=== PATIENT | male | born 1955 | race Caucasian/White ===

== ENCOUNTER 2024-12-28 13:13 | Inpatient (IN) | payer MEDICARE, SELFPAY ==
[2024-12-28] VITALS (7 sets, daily range): BP systolic 94–139; BP diastolic 71–89; PULSE 79–124; RESP 17–99; TEMP 36–37.2; O2SAT 96–100; BMI 21.1; BMI 21.2
--- NOTE | 2024-12-28 13:36 | XR_ITS ---
Examination: Abdomen sonogram, Limited Date and time of exam: December 28, 2024 1452 hours INDICATIONS: Epigastric pain beginning 3 weeks ago Technique: Real-time whatley scale transabdominal sonographic images of the upper abdomen obtained. Findings: Multiple gallstones Gallbladder wall 0.3 cm no edema Common bile duct 0.3 cm Pancreatic head 2.2 cm Liver 13.6 cm lobular contour no focal liver lesions Normal hepatopedal portal venous oh Patent IVC IMPRESSION: Cholelithiasis, negative for cholecystitis Cirrhosis versus primary hepatocellular disease no liver lesions
--- NOTE | 2024-12-28 13:36 | EKG_ITS ---
[facility] Test Date: 2024-12-28 Pat Name: VICK DUARTE Department: Room: - Gender: Male Shed Boss: : 1955 Requested By: Mayra Singh Order Number: [id number] Reading MD: Mayra Singh Measurements Intervals [place] Rate: 116 P: 63 PA: 140 QRS: 77 QRSD: 87 T: 4 QT: 301 QTc: 419 Interpretive Statements SINUS TACHYCARDIA MODERATE T-WAVE ABNORMALITY, CONSIDER INFERIOR ISCHEMIA [-0.1+ mV T WAVE IN II/aVF] Compared to ECG 08/15/2024 13:13:32 T-wave abnormality now present Possible ischemia now present Sinus rhythm no longer present /store/S0/[id number]/ecg/[id number].pdf
--- NOTE | 2024-12-28 13:36 | XR_ITS ---
Examination: CT abdomen with intravenous contrast CT pelvis with intravenous contrast 2-D coronal reconstructions 2-D sagittal reconstructions Date and time of exam:December 28, 2024 1820 hours INDICATIONS: Abdominal pain beginning 3 weeks ago COMPARISON: 08/18/2023. CTDI: vol (mGy) 11.5 DLP: (mGycm) 436 Technique: Multiple axial sections of the abdomen and pelvis have been obtained. 64 slice high-resolution scanner used. 3 mm axial sections have been obtained, post intravenous injection 60 cc [id number] 2-D sagittal, coronal reconstructions obtained. Low dose protocols were performed. One or more of the following dose reduction techniques were used; automated exposure control, adjustment of the mA and/or KV according to patient size, use of iterative reconstruction technique. Findings: Liver is irregular in contour 12 mm anterior right lobe liver lesion axial image 73 Gallstones Splenomegaly AP dimension 13 cm Suspicious for edema at the head of the pancreas axial image 79 Common bile duct wall is thickened, coronal image 62 no definite common bile duct stones Calcifications are present in the pancreatic head Fluid distended small bowel loops Perinephric stranding Heavy abdominal aortic calcification Wall thickening involving mid and lower small bowel loops No pericecal inflammatory change Colonic diverticulosis, no diverticulitis Wall thickening involving the colon Transverse prostate dimension 4.7 cm Urinary bladder wall thickening up to 13 mm Advanced disc narrowing L3-L4 IMPRESSION: Cirrhosis Suspicious for a 12 mm right lobe liver lesion, recommend MRI abdomen follow-up pre and post intravenous contrast of the abdomen and liver Cholelithiasis Suspicious for pancreatitis, wall thickening of the common bile duct suspicious for cholangitis, recommend MRCP follow-up Hepatic arthropathy, hepatic and neuropathy Marked thickening of the urinary bladder wall, differential would include cystitis, early bladder carcinoma
--- NOTE | 2024-12-28 13:38 | EDNOTE_ITS ---
ED Abdominal Pain RME/HPI General Chief Complaint: Abdominal Pain Stated complaint: UPPER ABD PAIN, 10LB WEIGHT LOSS IN 3WKS Time seen by provider: 12/28/24 13:18 Arrival date/time: 12/28/24 13:13 RME / HPI RME / HPI narrative: 69-year-old male patient with significant history of gallstones in the past, hypertension, came in for evaluation regarding abdominal pain. Has been having abdominal pain for the last 3 weeks, described as dull ache, all day, severity moderate. Associated with nausea. Getting worse for the last few days. Patient also complained of poor appetite and weight loss about 10 pounds in the last 3 weeks. Denies any vomiting denies any blood in the stool denies any other complaints no medications taken prior to arrival. Patient stopped drinking alcohol more than a month ago. Related Data Home Medications ?Medication ?Instructions ?Recorded ?Confirmed albuterol sulfate 90 mcg/actuation 2 puff inhalation Q 4H PRN sob 07/13/22 08/26/23 aerosol inhaler clopidogrel 75 mg tablet 75 mg PO QDAY 07/13/2208/26 simvastatin 20 mg tablet 20 mg PO QDAY 07/13/2208/26 metoprolol succinate 25 mg 25 mg PO BID 08/26/2308/26 tablet,extended release 24 hr Previous Rx's ?Medication ?Instructions ?Recorded lisinopril 5 mg tablet 5 mg PO QDAY 30 days #30 tab s 03/02/23 hydrocodone 5 mg-acetaminophen 325 1 tab PO Q8H PRN pa in #10 tabs 08/30/23 mg tablet Allergies Allergy/AdvReac Type Severity Reaction Status Date / Time No Known Allergies Allergy Verified 12/28/24 13:14 Review of Systems Review of Systems Narrative Review of Systems: Review of system reviewed and within normal limits except mentioned in HPI ED Exam Narrative Physical exam: VITAL SIGNS: Reviewed. GENERAL APPEARANCE: Alert and interactive, follows commands, no acute distress, HEAD AND FACE: Non-traumatic. ENT: PERRL, pink conjunctivitis, eyelid no trauma, Mucous membrane moist. NECK: Supple, nontender, no nuchal rigidity. CHEST: No tenderness, no crepitus, no paradoxical movement, no retractions. LUNGS: Clear, well ventilated, symmetric, no rales, no wheezing, no ronchi, no stridor, good breath sounds bilaterally. HEART: Regular rate, regular rhythm, no murmur, no gallops. ABDOMEN: Soft, positive bowel sounds, nondistended, no guarding, diffuse tenderness, no rebound, no masses, RECTAL: Deferred. GENITAL: Deferred. NEUROLOGICAL: Gross motor function intact sensory function intact, Appropriate for age. MUSCULOSKELETAL: low back nontender, full range of motion. EXTREMITIES: Nontender, full range of motion. SKIN: Color pink, dry, no rash, no lacerations, no abrasions, no contusions. LYMPHATICS: Deferred. Course Quality Measures none Orders Category Date Time Status COVID-19 Screening Questionnaire NOW Care 12/28/24 20:[address] Screening NOW Care 12/28/24 13:37 Active Decision to Admit X1 Care 12/28/24 20:07 Active EKG (ED ONLY) *Do not use* NOW Care 12/28/24 13:[address] abdomen pelvis w con Stat Exams 12/28/24 13:36 Completed EKG (ED Only) Stat Exams 12/28/24 13:36 Draft US gall bladder Stat Exams 12/28/24 13:36 Completed Blood Culture (Lab) Stat Lab 12/28/24 19:33 Received CBC Stat Lab 12/28/24 14:04 Completed Comprehensive Metabolic Panel Stat Lab 12/28/24 14:04 Completed Lipase Stat Lab 12/28/24 14:04 Completed Lipid Panel Stat Lab 12/28/24 14:04 Completed Partial Thromboplastin Time Stat Lab 12/28/24 14:04 Completed Prothrombin Time with INR Stat Lab 12/28/24 14:04 Completed UA, C/S IF [Urinalysis, C/S if Indicated] Stat Lab 12/28/24 14:10 Completed Morphine Inj Med 12/28/24 13:39 Discontinued 4 mg IVP X1 ONE Ondansetron Inj [Zofran Inj] Med 12/28/24 13:36 Discontinued 4 mg IV X1 ONE Piper/Tazo 3.375 gm [Zosyn] Med 12/28/24 19:12 Discontinued 3.375 gm in 50 ml IV X1 Sodium Chloride 0.9% 1000 ml [Ns] 1,000 ml Med 12/28/24 13:37 Discontinued IV 999 mls/hr Vital Signs Vital signs: Vital Signs Temperature 98.9 F 01/30/25 13:25 Pulse Rate 124 H 12/28/24 13:25 Respiratory Rate 18 12/28/24 13:25 Blood Pressure 121/82 12/28/24 13:25 Pulse Oximetry (%) 99 12/28/24 13:25 Oxygen Delivery Method Room Air 12/28/24 13:25 Abdominal Pain [facility] Narrative [facility] Narrative:: 69-year-old male patient with significant history of gallstones in the past, hypertension, came in for evaluation regarding abdominal pain. Has been having abdominal pain for the last 3 weeks, described as dull ache, all day, severity moderate. Associated with nausea. Getting worse for the last few days. Patien t also complained of poor appetite and weight loss about 10 pounds in the last 3 weeks. Denies any vomiting denies any blood in the stool denies any other complaints no medications taken prior to arrival. Patient stopped drinking alcohol more than a month ago. Laboratory Is significant for a leukocytosis of 13.2 CMP LFTs are normal total bili is normal blood glucose was 288, lipase was noted to be 329. Urinalysis no UTI. Ultrasound of the gallbladder showed Cholelithiasis, negative for cholecystitis Cirrhosis versus primary hepatocellular disease no liver lesions CT scan of the abdomen pelvis showed Cirrhosis Suspicious for a 12 mm right lobe liver lesion, recommend MRI abdomen follow-up pre and post intravenous contrast of the abdomen and liver Cholelithiasis Suspicious for pancreatitis, wall thickening of the common bile duct suspicious for cholangitis, recommend MRCP follow-up Hepatic arthropathy, hepatic and neuropathy Marked thickening of the urinary bladder wall, differential would include cystitis, early bladder carcinoma Patient received IV fluids, IV Zosyn, and morphine and Zofran Case discussed with hospitalist, who admitted the patient, thank you very much Patient data External records reviewed:: None Clinical information provided by:: patient Social determinants that could affect healthcare access:: none Patient has the following chronic illnesses:: Liver cirrhosis, hypertension cholelithiasis How is presenting disease/condition affected by chronic disease/condition?: exacerbated by Evaluation data The following diagnostics were reviewed and interpreted by me:: lab results, radiology exam(s) and EKG tracing(s) Lab and/or radiology exams considered but not ordered:: None Interpretation Summary: EKG showed sinus tachycardia, ventricular rate of 116 bpm, no ST segment elevation depression. The rest of the labs and imaging see [facility] Medications / Prescriptions Medications or Prescriptions considered but not ordered:: None Medication administrations:: Medication Administration History Discontinued Medications Sodium Chloride (Ns) 1,000 mls @ 999 mls/hr IV .Q1H1M ONE Stop: 12/28/24 14:37 Last Infusion: 12/28/24 18:20 Dose: Infused Documented By: Admin: 12/28/24 17:19 Dose: 999 mls/hr Documented By: GEOVANNA Piperacillin/Tazobactam/Dextrose (Zosyn) 3.375 gm in 50 mls @ 100 mls/hr IV X1 ONE Stop: 12/28/24 19:41 Last Admin: 12/28/24 19:36 Dose: 100 mls/hr Documented By: KG Morphine Sulfate (Morphine Sulf Inj 10 Mg/Ml Vial) 4 mg IVP X1 ONE Stop: 12/28/24 13:40 Last Admin: 12/28/24 17:20 Dose: 4 mg Documented By: GEOVANNA Ondansetron HCl (Ondansetron Inj 2 Mg/Ml Inj 2 Ml) 4 mg IV X1 ONE; Protocol Stop: 12/28/24 13:37 Last Admin: 12/28/24 17:20 Dose: 4 mg Documented By: GEOVANNA Zofran morphine IV Zosyn and IV fluids for hydration Consultations Consultation(s) initiated? (list below): No Diagnosis Differential diagnosis abdominal pain: abdominal pain, pancreatitis and small bowel obstruction Most likely diagnosis given after review of the tests above:: Acute pancreatitis, cholelithiasis Admission Indicated Admission indicated?: indicated Admission Request Was there a request for admission?: Yes Admission Attestation Admission request attestation: Discussed case with [Dr. Solitario] from Hospitalist service regarding admission. Discussed patients ED course, exam findings, labs, and radiology results. The Hospitalist [agrees] to accept the patient for admission. Disposition Plan Disposition Plan: Admit Discharge Attestation Discharge Attestation: None Discharge Plan Plan Patient Disposition: Admit Acute Care w/in Hospital Prescriptions/Referrals Prescriptions/Med Rec: No Action clopidogrel 75 mg tablet 75 mg PO QDAY simvastatin 20 mg tablet 20 mg PO QDAY albuterol sulfate 90 mcg/actuation HFA aerosol inhaler 2 puff INHALATION Q4H PRN (Reason: sob) metoprolol succinate 25 mg tablet extended release 24 hr 25 mg PO BID Patient Comments: TAKE 1 TABLET BY MOUTH ONCE AM; TAKE 1 TABLET BY MOUTH ONCE PM hydrocodone-acetaminophen 5-325 mg tablet 1 tab PO Q8H MDD 3 PRN (Reason: pain) Qty: 10 0RF lisinopril 5 mg tablet 5 mg PO QDAY 30 Days Qty: 30 0RF Referrals: Aydee Wu FNP [Primary Care Provider] - In 1 week Problem List Clinical Impression: Acute pancreatitis, Cholelithiasis Patient/Caregiver Discharge Instructions Print Language: Marshallese Stand Alone Forms: Ajne Award Info., Patient Portal Info Letter
[2024-12-28 14:18] LABS: Collection Type, Urine Clean Catch; Squamous Epithelial Cell,Urine 0 /hpf (0-5)
[2024-12-28 14:26] LABS: Basophils # (Auto) 0.1 Thou/mm3 (0.0-0.2); Basophils % (Auto) 1 % (0-2.5); Eosinophils # (Auto) 0.2 Thou/mm3 (0.0-0.5); Eosinophils % (Auto) 2 % (0-10); Hematocrit 46.3 % (41.0-53.0); Immature Granulocytes % (Auto) 0 % (0-0); Immature Granulocytes Auto 0.05 Thou/mm3 (0.00-0.00); Lymphocytes # (Auto) 1.9 Thou/mm3 (1.0-4.8); Lymphocytes % (Auto) 14 % (10-50); Mean Corpuscular HGB Conc 34.6 g/dl (31.0-37.0); Mean Corpuscular Hemoglobin 27.9 pg (25.0-35.0); Mean Corpuscular Volume 81 fL (80-100); Monocytes # (Auto) 0.8 Thou/mm3 (0.0-0.8); Monocytes % (Auto) 6 % (0-12); Neutrophils # (Auto) 10.1 Thou/mm3 (1.8-7.7); Neutrophils % (Auto) 77 % (37-80); Nucleated Red Blood Cell % 0 /100 WBC (0); Platelet Count 348 Thou/mm3 (140-440); RDW Standard Deviation 41.1 fL (35.1-43.9); Red Blood Count 5.74 Miln/mm3 (4.50-5.90); White Blood Count 13.2 Thou/mm3 (3.8-10.6)
[2024-12-28 14:34] LABS: Bilirubin,Urine Negative (Negative); Blood,Urine Negative (Negative); Clarity,Urine Clear (Clear/Hazy); Color,Urine Yellow (Lt Yel-Yel); Culture Indicated,Urine Not Indicated; Glucose, Urine 4+ (Negative); Ketones,Urine 2+ (Negative); Leukocyte Esterase,Urine Negative (Negative); Nitrite,Urine Negative (Negative); Protein,Urine 1+ (Neg - Trace); RBC,Urine 8 /hpf (0-3); Specific Gravity,Urine 1.027 (1.001-1.035); WBC,Urine 2 /hpf (0-5)
[2024-12-28 14:45] LABS: Alanine Aminotransferase 16 U/L (10-49); Albumin, Serum 5.3 gm/dL (3.4-4.8); Alkaline Phosphatase 111 U/L (46-116); Anion Gap 11 (7-16); Aspartate Amino Transferase 17 U/L (0-34); BUN/Creatinine Ratio 15 Ratio (12-20); Bilirubin,Total 0.4 mg/dL (0.3-1.2); Blood Urea Nitrogen 20 mg/dL (9-23); Calcium 9.9 mg/dL (8.3-10.6); Calcium (Corrected) 9.9 mg/dL (8.5-10.1); Carbon Dioxide 19.8 mMol/L (20.0-31.0); Chloride 101 mMol/L (98-107); Creatinine (Component) 1.3 mg/dL (0.6-1.3); Estimated Creatinine Clearance 45.8 mL/min (>60); Globulin 2.6 gm/dL (2.3-3.5); Glucose 288 mg/dL (74-106); Lipase 329 U/L (12-53); Osmolality,Calculated 278 (275-295); Potassium 3.4 mMol/L (3.4-5.1); Sodium 132 mMol/L (136-145); Total Protein 7.9 gm/dL (5.7-8.2); eGFR 59 See Note
[2024-12-28 14:46] LABS: INR 1.1 (0.9-1.3); Partial Thromboplastin Time 29.1 Seconds (22.0-36.0); Prothrombin Time 11.8 Seconds (9.0-12.2)
[2024-12-28 16:12] LABS: Cardiac Risk Estimate 3.7 RATIO (4.0-6.7); Cholesterol 114 mg/dL (132-200); HDL Cholesterol 31 mg/dL (40-60); LDL Cholesterol,Calculated 47 mg/dL (0-130); Triglycerides 180 mg/dL (30-150)
[2024-12-28] MEDS: SODIUM CHLORIDE 0.9% 1000 ML 1,000 ML 999 ML IV (17:19)
[2024-12-28] MEDS: ONDANSETRON INJ 2 MG/ML INJ 2 ML 4 MG IV (17:20)
[2024-12-28] MEDS: MORPHINE SULF INJ 10 MG/ML VIAL 4 MG IVP (17:20)
[2024-12-28] MEDS: PIPER/TAZO 3.375 GM 3.375 GM/50 ML BAG IV (19:36)
--- NOTE | 2024-12-28 21:04 | ESHP_ITS ---
<Statement entered by Jose Correia MD - 12/29/24 13:56> I have discussed and was present for the essential components of the history, physical examination, diagnosis, and treatment plan with the resident. I agree with the patient's care as documented by the resident and amended herein by me. Jose Correia MD FACP. Documentation for date of: 12/28/24 HPI History of Present Illness Chief complaint: Epigastric abdominal pain x 3 weeks History of present illness: Patient is a 69-year-old male with past medical history of COPD, HTN, HLD, CAD s/p 3 stents, alcohol-related liver cirrhosis, and recurrent pancreatitis who presented to the ED on 12/28/2024 with about 3 weeks of epigastric abdominal pain. Patient reports abdominal pain for the last 3 weeks which is constant and worsened today prompting ED visit. Pain was accompanied with nausea and he reports poor appetite with 10 lb weight loss in the last 3 weeks. Patient has had previous episodes of pancreatitis in the past. He states he has abstained from alcohol for the past 1 month but has been going back and forth between abstaining and resuming alcohol use, not interested in quitting completely. ED Course: -Initial vitals showed sinus tachycardia of 124, otherwise hemodynamically stable -Labs significant for WBC 13.2, creatinine 1.3 (baseline 0.9-1.0), lipase 329 -Abdomen/pelvis CT with contrast showed cirrhosis, suspicious for a 12 mm right lobe liver lesion, cholelithiasis, suspicious for pancreatitis, wall thickening of the common bile duct suspicious for cholangitis, marked thickening of the urinary bladder wall -Gallbladder US showed cholelithiasis, negative for cholecystitis, and cirrhosis versus primary hepatocellular disease, no liver lesions -In the ED, patient was given 1L IV NS bolus x1, morphine 4 mg IV x1, Zofran 4 mg IV x1, Zosyn 3.375 gm IV x1 -Patient was admitted for acute pancreatitis Review of Systems Review of systems otherwise negative except what is mentioned above. Past Medical History Past Medical History Comments PMH COMMENT: Past Medical History: COPD, HTN, HLD, CAD s/p 3 stents, alcohol-related liver cirrhosis, and recurrent pancreatitis Family History: Notable for cardiac disorders Surgical History: Appendectomy, right shoulder surgery, cardiac stents x3 Social History: Current smoker 55 pack years, alcohol use about 1 pint per day, currently quit for about 1 month, occasional marijuana use Current Medications: Clopidogrel 75 mg qday, lisinopril 5 mg qday, metoprolol succinate 25 mg BID, simvastatin 20 mg qday (Source: [employer]) Allergies: No known drug allergies Exam Vital Signs Temp Pulse Resp BP Pulse Ox O2 Del Method 97.7 F 79 17 110/76 96 Room Air 12/28/24 19:39 12/28/24 19:39 12/28/24 19:39 12/28/24 19:39 12/28/24 19:39 12/28/24 19:39 Narrative Exam Physical Exam General: Awake and in no acute distress. Conversational and non-toxic appearing. HEENT: Normocephalic, atraumatic, mucous membranes moist. Heart: Regular rate and rhythm, no murmurs. Lungs: Clear to auscultation with no wheezing or crackles. Abdomen: Epigastric tenderness to palpation, nondistended, positive bowel sounds. ?Lower abdomen old surgical lap scar present. No guarding or rebound tenderness. Neurologic: Alert and oriented x3, no gross neurological deficit, and patient able to move all 4 extremities. Extremities: No edema. Skin: No rash or ecchymoses. Results: Labs 12/29/24 04:54 12/29/24 04:54 Labs: Short CBC 12/28/24 Range/Units 14:04 WBC 13.2 H (3.8-10.6) Thou/mm3 Hgb 16.0 (13.5-16.0) g/dL Hct 46.3 (41.0-53.0) % Plt Count 348 (140-440) Thou/mm3 BMP 12/28/24 14:04 Sodium 132 L Potassium 3.4 Chloride 101 Carbon Dioxide 19.8 L BUN 20 Creatinine 1.3 Glucose 288 H Calcium 9.9 Liver Function 12/28/24 Range/Units 14:04 Total Bilirubin 0.4 (0.3-1.2) mg/dL AST 17 (0-34) U/L ALT 16 (10-49) U/L Alkaline Phosphatase 111 (46-116) U/L Albumin 5.3 H (3.4-4.8) gm/dL Urine 12/28/24 Range/Units 14:10 Urine Color Yellow (Lt Yel-Yel) Urine Clarity Clear (Clear/Hazy) Urine pH 6.0 (5.0-7.0) Ur Specific [place] 1.027 (1.001-1.035) Urine Protein 1+ A (Neg - Trace) Urine Glucose (UA) 4+ A (Negative) Quality Measures Quality Measures none Advance care planning discussed with:: patient Medications Home Medications and Allergies Home Medications ?Medication ?Instructions ?Recorded ?Confirmed ?Type albuterol sulfate 90 mcg/actuation 2 puff inhalation Q 4H PRN sob 07/13/22 12/28/24 History aerosol inhaler clopidogrel 75 mg tablet 75 mg PO QDAY 07/13/2212/28 History simvastatin 20 mg tablet 20 mg PO QDAY 07/13/2212/28 History metoprolol succinate 25 mg 25 mg PO BID 08/26/2312/28 History tablet,extended release 24 hr Allergies Allergy/AdvReac Type Severity Reaction Status Date / Time No Known Allergies Allergy Verified 12/28/24 13:14 Visit Medications Acetaminophen (Acetaminophen 325 Mg Tablet) 650 mg PO Q6H PRN PRN Reason: Fever >100.4 or Pain 1-10 Stop: 01/27/25 20:54 Hydrocodone Bitart/Acetaminophen (Hydrocodone/Apap 5/325 Tablet) 1 tab PO Q6HR PRN PRN Reason: PAIN SCALE 4-10(Mod-Sev Stop: 01/02/25 20:54 Heparin Sodium (Porcine) (Heparin Sod Inj 5000 Unit/Ml Vial) 5,000 unit SC Q12HR [facility] Stop: 01/12/25 08:59 Sodium Chloride (Ns) 1,000 mls @ 150 mls/hr IV .Q6H40M JUANITA Stop: 12/29/24 23:39 Morphine Sulfate (Morphine Sulf Inj 10 Mg/Ml Vial) 2 mg IVP Q6H PRN PRN Reason: PAIN SCALE 7-10 (Severe Stop: 01/02/25 21:00 Ondansetron HCl (Ondansetron Inj 2 Mg/Ml Inj 2 Ml) 4 mg IV Q6H PRN; Protocol PRN Reason: NAUSEA OR VOMITING Stop: 01/27/25 20:54 Discontinued Medications Sodium Chloride (Ns) 1,000 mls @ 999 mls/hr IV .Q1H1M ONE Stop: 12/28/24 14:37 Last Infusion: 12/28/24 18:20 Dose: Infused Piperacillin/Tazobactam/Dextrose (Zosyn) 3.375 gm in 50 mls @ 100 mls/hr IV X1 ONE Stop: 12/28/24 19:41 Last Infusion: 12/28/24 20:10 Dose: Infused Morphine Sulfate (Morphine Sulf Inj 10 Mg/Ml Vial) 4 mg IVP X1 ONE Stop: 12/28/24 13:40 Last Admin: 12/28/24 17:20 Dose: 4 mg Ondansetron HCl (Ondansetron Inj 2 Mg/Ml Inj 2 Ml) 4 mg IV X1 ONE; Protocol Stop: 12/28/24 13:37 Last Admin: 12/28/24 17:20 Dose: 4 mg Assessment & Plan Plan 69-year-old male with past medical history of COPD, HTN, HLD, CAD s/p 3 stents, alcohol-related liver cirrhosis, and recurrent pancreatitis who presented to the ED on 12/28/2024 with about 3 weeks of epigastric abdominal pain, admitted for acute pancreatitis. #Acute on likely chronic pancreatitis Patient came with about 3 weeks of worsening epigastric pain. Has had prior episodes. He is a long time alcoholic. Currently he has abstained from drinking for 1 month. Lipase 329. While abdomen/pelvis CT showed thickening of the bile duct suspicious for cholangitis, patient does not appear septic, clinical picture does not appear to be obstructive pattern, Tbili is completely normal, vitals are stable, patient is not jaundiced. Regardless, MRCP will be ordered to rule out obstruction. -Started on NS IV fluids at 150 ml/hr -Blood cultures pending -MRCP ordered #Right lobe liver lesion, 12 mm Abdomen/pelvis CT with contrast showed cirrhosis, suspicious for a 12 mm right lobe liver lesion. Not seen on US gallbladder. -Follow up outpatient with elective MRI #Cholelithiasis without cholecystitis Gallbladder US shows cholelithiasis. -MRCP ordered #EDUARDO Creatinine 1.3 mildly elevated from baseline about 0.9-1.0. -IV fluids as above -Hold home JOSHUA-I #History of COPD Patient reports he takes average 2 puffs of his inhaler daily. -Continue home albuterol as needed #History of HTN -Held home lisinopril in setting of mild EDUARDO #History of HLD -Continue home statin #History of CAD s/p 3 stents -Continue home clopidogrel 75 mg qday -Continue home metoprolol 25 mg BID #History of alcohol-related liver cirrhosis -Counseled the patient on alcohol cessation DVT prophylaxis: Heparin 5,000 U subQ GI prophylaxis: Pantoprazole 40 mg IV daily Diet: Clear liquids advanced as tolerated Bhat: None Lines: Peripheral IV Antibiotics: None CODE STATUS: DNR Reason for hospitalization: Acute on chronic pancreatitis Patient plan of care was discussed with the attending physician, Dr. Correia. Niya Solitario, PGY-2
[2024-12-28] MEDS: SODIUM CHLORIDE 0.9% 1000 ML 1,000 ML 150 ML IV (21:12)
[2024-12-28] MEDS: MORPHINE SULF INJ 10 MG/ML VIAL 2 MG IVP (23:10)
[2024-12-29] VITALS (11 sets, daily range): BP systolic 109–130; BP diastolic 61–87; PULSE 68–99; RESP 16–99; TEMP 36.2–36.7; O2SAT 95–100
--- NOTE | 2024-12-29 | XR_ITS ---
MRI abdomen, without contrast. MRCP Date and time of exam: December 29, 2024 1224 hours INDICATIONS: Epigastric pain nausea beginning 3 weeks ago worse today, history pancreatitis, wall of the common bile duct is thickened on CT abdomen study December 01, 2024 Technique: Multiple axial and coronal images of the abdomen have been obtained with the Siemens 1.5T MRI scanner. Images obtained included T1 weighted transverse images, T2-weighted transverse images, T2-weighted transverse images fat-suppressed, T2 weighted haste fat suppressed transverse images, T1 weighted images, in and out of phase images, T2-weighted coronal images, breath hold, T2 weighted haze coronal images as well as T2 weighted coronal thick slab images, MRCP. Findings: 4 mm right lobe liver cyst 6 mm left lobe liver cyst Liver is mildly irregular in contour Cholelithiasis Gallbladder wall does not appear thickened or edematous Common hepatic common bile duct are not enlarged, no stones noted Dilated pancreatic duct, duct is irregular, measuring 5.5 mm Minimal edema about the pancreas No hydronephrosis No splenic lesion IMPRESSION: Cholelithiasis, negative for cholecystitis Normal appearing common hepatic common bile duct Minimal pancreatitis Dilated pancreatic duct which is irregular, seen with prior episodes of pancreatitis
[2024-12-29] MEDS: SODIUM CHLORIDE 0.9% 1000 ML 1,000 ML 150 ML IV ×2 (04:38→17:51)
[2024-12-29 05:24] LABS: Basophils # (Auto) 0.1 Thou/mm3 (0.0-0.2); Basophils % (Auto) 1 % (0-2.5); Eosinophils # (Auto) 0.3 Thou/mm3 (0.0-0.5); Eosinophils % (Auto) 4 % (0-10); Hematocrit 38.3 % (41.0-53.0); Hemoglobin 13.3 g/dL (13.5-16.0); Immature Granulocytes % (Auto) 0 % (0-0); Immature Granulocytes Auto 0.02 Thou/mm3 (0.00-0.00); Lymphocytes # (Auto) 1.7 Thou/mm3 (1.0-4.8); Lymphocytes % (Auto) 19 % (10-50); Mean Corpuscular HGB Conc 34.7 g/dl (31.0-37.0); Mean Corpuscular Hemoglobin 27.7 pg (25.0-35.0); Mean Corpuscular Volume 80 fL (80-100); Monocytes # (Auto) 0.7 Thou/mm3 (0.0-0.8); Monocytes % (Auto) 8 % (0-12); Neutrophils # (Auto) 5.9 Thou/mm3 (1.8-7.7); Neutrophils % (Auto) 68 % (37-80); Nucleated Red Blood Cell % 0 /100 WBC (0); Platelet Count 204 Thou/mm3 (140-440); RDW Standard Deviation 40.9 fL (35.1-43.9); White Blood Count 8.8 Thou/mm3 (3.8-10.6)
[2024-12-29 06:16] LABS: Alanine Aminotransferase 10 U/L (10-49); Albumin/Globulin Ratio 1.7 (1.2-2.2); Alkaline Phosphatase 86 U/L (46-116); Anion Gap 7 (7-16); Aspartate Amino Transferase < 10 U/L (0-34); BUN/Creatinine Ratio 16 Ratio (12-20); Bilirubin,Total 0.4 mg/dL (0.3-1.2); Blood Urea Nitrogen 14 mg/dL (9-23); Carbon Dioxide 18.8 mMol/L (20.0-31.0); Chloride 111 mMol/L (98-107); Creatinine (Component) 0.9 mg/dL (0.6-1.3); Estimated Creatinine Clearance 66.4 mL/min (>60); Globulin 2.3 gm/dL (2.3-3.5); Glucose 155 mg/dL (74-106); Magnesium 1.4 mg/dL (1.6-2.6); Osmolality,Calculated 277 (275-295); Phosphorous 2.5 mg/dL (2.4-5.1); Potassium 3.6 mMol/L (3.4-5.1); Sodium 137 mMol/L (136-145); Total Protein 6.3 gm/dL (5.7-8.2); eGFR > 60 See Note
[2024-12-29] MEDS: MORPHINE SULF INJ 10 MG/ML VIAL 2 MG IVP ×2 (06:20→12:11)
[2024-12-29] MEDS: Magnesium Sulfate 4 GM Ivpb 4 GM/50 ML BAG IV (08:38)
[2024-12-29] MEDS: PANTOPRAZOLE INJ 40 MG VIAL IVP (08:38)
[2024-12-29] MEDS: CLOPIDOGREL BISULFATE 75 MG TABLET PO (08:39)
[2024-12-29] MEDS: METOPROLOL SUCCINATE XL 25 MG TABCR PO ×2 (08:39→20:20)
[2024-12-29] MEDS: HEPARIN SOD INJ 5000 UNIT/ML VIAL SC (08:41)
--- NOTE | 2024-12-29 11:55 | ESPR_ITS ---
<Statement entered by Gian Sutton MD - 12/30/24 13:41> I reviewed above note and agree with findings and plans. I have also personally examined the patient with medicine team and went over assessment and plan with medical team including web development intern and resident physician. Documentation for date of: 12/29/24 Subjective Subjective Interval history: Patient seen at bedside. No acute overnight events. He is a 69-year-old male with past medical history of COPD, hypertension, hyperlipidemia, CAD status post 3 stents, alcohol related liver cirrhosis and recurrent pancreatitis who presented to the ED on 12/28/2024 with a 3-day hx of epigastric abdominal pain has been constant and worsening. He also reports poor appetite and consequent weight loss in the last 3 weeks. Patient admits that he has been a long-term alcoholic but has not had any drink in about a month. Today, he reports some mild improvement in his abdominal pain but endorses loss of appetite and states he is unable to tolerate even drinking water without having attacks of pain. As gallbladder ultrasound was positive for cholelithiasis with thickening of the CBD, MRCP has been ordered and surgical consult. Patient will be placed n.p.o. until he can tolerate diet, will continue IV fluids at 150 cc/h and pain management. He also reports that he has diarrhea as a side effect of morphine, will change to Dilaudid. Exam Vital Signs Temp Pulse Resp BP Pulse Ox O2 Del Method 97.9 F 93 16 117/61 95 Room Air 12/29/24 08:00 12/29/24 08:39 12/29/24 08:00 12/29/24 08:39 12/29/24 08:00 12/29/24 08:00 Narrative Exam GENERAL: AAOX3 NEURO: CRUSHER SETTER grossly intact, moves extremities x4 HEENT: Moist mucosa. Eyes open, symmetrical, & clear CARDIO: No chest pain on palpation. Heart RRR, no obvious murmurs PULM: No noted coughing/dyspnea. Lungs CTA B/L GI: Abdomen soft, nondistended, mildly tender to palpation in epigastric region. URO/BUSINESS INTELLIGENCE ENGINEER:: No further abnormalities noted. SKIN/MSK/EXT: No wounds/rashes/edema/amputations, no pain on palpation. Pedal pulses present B/L Objective Labs 12/29/24 04:54 12/29/24 04:54 Labs: Laboratory Results - last 24 hr 12/28/24 12/28/24 12/29/24 14:04 14:10 04:54 WBC 13.2 H 8.8 RBC 5.74 4.80 Hgb 16.0 13.3 L D Hct 46.3 38.3 L MCV 81 80 MCH 27.9 27.7 MCHC 34.6 34.7 RDW Std Deviation 41.1 40.9 Plt Count 348 204 D Neut % (Auto) 77 68 Lymph % (Auto) 14 19 [place] % (Auto) 6 8 Eos % (Auto) 2 4 Baso % (Auto) 1 1 Neut # (Auto) 10.1 H 5.9 Lymph # (Auto) 1.9 1.7 [place] # (Auto) 0.8 0.7 Eos # (Auto) 0.2 0.3 Baso # (Auto) 0.1 0.1 Immature Gran # (Auto) 0.05 H 0.02 H Absolute Nucleated RBC 0.00 0.00 Immature Gran % 0 0 Nucleated RBC % 0 0 PT 11.8 INR 1.1 APTT 29.1 Sodium 132 L 137 Potassium 3.4 3.6 Chloride 101 111 H Carbon Dioxide 19.8 L 18.8 L Anion Gap 11 7 BUN 20 14 Creatinine 1.3 0.9 Estim Creat Clear Calc 45.8 L 66.4 eGFR 59 L > 60 BUN/Creatinine Ratio 15 16 Glucose 288 H 155 H D Calculated Osmolality 278 277 Calcium 9.9 9.0 Corrected Calcium 9.9 9.0 Phosphorus 2.5 Magnesium 1.4 L Total Bilirubin 0.4 0.4 AST 17 < 10 ALT 16 10 Alkaline Phosphatase 111 86 D Total Protein 7.9 6.3 Albumin 5.3 H 4.0 D Globulin 2.6 2.3 Albumin/Globulin Ratio 2.0 1.7 Triglycerides 180 H Cholesterol 114 L LDL Cholesterol, Calc 47 HDL Cholesterol 31 L Cholesterol/HDL Ratio 3.7 L Lipase 329 H Ur Collection Type Clean Catch Urine Color Yellow Urine Clarity Clear Urine pH 6.0 Ur Specific [place] 1.027 Urine Protein 1+ A Urine Glucose (UA) 4+ A Urine Ketones 2+ A Urine Blood Negative Urine Nitrite Negative Urine Bilirubin Negative Urine Urobilinogen (Auto) 2.0 Ur Leukocyte Esterase Negative Urine RBC 8 H Urine WBC 2 Ur Squamous Epith Cells 0 Urine Bacteria None Ur Culture Indicated? Not Indicated Quality Measures Quality Measures none Advance care planning discussed with:: patient Assessment & Plan Assessment Current Active Medications: Generic Name Dose Route Start Last Admin Trade Name Freq PRN Reason Stop Dose Admin Acetaminophen 650 mg 12/28/24 20:55 Acetaminophen 325 Mg Tablet PO 01/27/25 20:54 Q6H PRN Fever >100.4 or Pain 1-10 Hydrocodone Bitart/Acetaminophen 1 tab 12/28/24 20:55 Hydrocodone/Apap 5/325 Tablet PO 01/02/25 20:54 Q6HR PRN PAIN SCALE 4-10(Mod-Sev Albuterol 2 puff 12/28/24 23:36 Albuterol Inh 8 Gm INH 01/27/25 23:35 Q4H PRN sob Atorvastatin Calcium 10 mg 12/29/24 21:00 Atorvastatin Calcium 10 Mg Tablet PO 01/28/25 20:59 2100 JUANITA Protocol Clopidogrel Bisulfate 75 mg 12/29/24 09:00 12/29/24 08:39 Clopidogrel Bisulfate 75 Mg Tablet PO 01/28/25 08:59 75 mg QDAY JUANITA Administration Heparin Sodium (Porcine) 5,000 unit 12/29/24 09:00 12/29/24 08:41 Heparin Sod Inj 5000 Unit/Ml Vial SC 01/12/25 08:59 5,000 unit Q12HR JUANITA Administration Sodium Chloride 1,000 mls @ 150 mls/hr 12/28/24 21:00 12/29/24 04:38 Ns IV 12/29/24 23:39 150 mls/hr .Q6H40M JUANITA Administration Magnesium Sulfate 4 gm in 50 mls @ 12.5 mls/hr 12/29/24 08:04 12/29/24 08:38 Magnesium Sulfate Ivpb IV 12/29/24 12:03 12.5 mls/hr X1 ONE Administration Metoprolol Succinate 25 mg 12/29/24 09:00 12/29/24 08:39 Metoprolol Succinate Xl 25 Mg Tabcr PO 01/28/25 08:59 25 mg BID JUANITA Administration Morphine Sulfate 2 mg 12/28/24 21:01 12/29/24 06:20 Morphine Sulf Inj 10 Mg/Ml Vial IVP 01/02/25 21:00 2 mg Q6H PRN Administration PAIN SCALE 7-10 (Severe Ondansetron HCl 4 mg 12/28/24 20:55 Ondansetron Inj 2 Mg/Ml Inj 2 Ml IV 01/27/25 20:54 Q6H PRN NAUSEA OR VOMITING Protocol Pantoprazole Sodium 40 mg 12/29/24 09:00 12/29/24 08:38 Pantoprazole Inj 40 Mg Vial IVP 01/28/25 08:59 40 mg QDAY JUANITA Administration Plan Summary: The patient is a 69-year-old male with past medical history of COPD, HTN, HLD, CAD s/p 3 stents, alcohol-related liver cirrhosis, and recurrent pancreatitis who presented to the ED on 12/28/2024 with about 3 weeks of epigastric abdominal pain, admitted for acute pancreatitis. #Acute on likely chronic pancreatitis #Likely gallstone pancreatitis #Cholelithiasis Patient came with about 3 weeks of worsening epigastric pain. Has had prior episodes. He is a long time alcoholic. Currently he has abstained from drinking for 1 month. Lipase 329. While abdomen/pelvis CT showed thickening of the bile duct suspicious for cholangitis, patient does not appear septic, clinical picture does not appear to be obstructive pattern, Tbili is completely normal, vitals are stable, patient is not jaundiced. Regardless, MRCP will be ordered to rule out obstruction. 12/29/2024- Patient still complains of pain with diet, not tolerating well. Pending MRCP for evaluation of common bile ducts dilation as seen on ultrasound. Currently on IV fluid at 100 cc/h. Plan: -N.p.o. until patient can tolerate -Continue with NS at 150 cc/h -Pain management -MRCP pending -Surgeon Dr. Larsen consulted, appreciate recommendations -Blood cultures pending #Right lobe liver lesion, 12 mm Abdomen/pelvis CT with contrast showed cirrhosis, suspicious for a 12 mm right lobe liver lesion. Not seen on US gallbladder. -Follow up outpatient with elective MRI #EDUARDO-resolved Creatinine 1.3 mildly elevated from baseline about 0.9-1.0 on admission. Creatinine today is 0.9 -Continue IV fluids as above #History of COPD Patient reports he takes average 2 puffs of his inhaler daily. -Continue home albuterol as needed #History of HTN -Held home lisinopril in setting of mild EDUARDO #History of HLD -Continue home statin #History of CAD s/p 3 stents -Continue home clopidogrel 75 mg qday -Continue home metoprolol 25 mg BID #History of alcohol-related liver cirrhosis -Counseled the patient on alcohol cessation DVT prophylaxis: Heparin 5,000 U subQ GI prophylaxis: Pantoprazole 40 mg IV daily Diet: Clear liquids advanced as tolerated Bhat: None Lines: Peripheral IV Antibiotics: None CODE STATUS: DNR Case was discussed with PGY-2 and attending physician, Dr Lesley Lawler MD PGY-1 Senior Resident Attestation: The patient is a 69-year-old male with significant past medical history of COPD, hypertension, hyperlipidemia, CAD s/p 3 stents placed, alcoholic liver cirrhosis, and recurrent pericarditis presented to ED on 12/28/2024 epigastric abdominal pain was found to have acute pancreatitis. We will continue with IV maintenance normal saline 150 cc/h, currently pending MRCP abdomen/pelvis CT significant for thickening of the bile duct suspicious for cholangitis. Surgical consultation was done to further evaluate the patient for inpatient versus outpatient cholecystectomy. We will continue with clear liquid diet to be advanced as tolerated. We will continue with IV morphine 0.25 Mg as needed every 4 hourly for severe pain. Pending further surgical recommendations. I discussed with and supervised the web development intern physician involved in the care of this patient. I personally saw and examined the patient and discussed the assessment and plan with the entire medicine team, including my attending. I agree with the assessment and plan as documented above. Curtis Gupta MD PGY2 Internal Medicine
[2024-12-29] MEDS: HYDROmorphone INJ 2 MG/ML VIAL 0.25 MG IVP (20:19)
[2024-12-29] MEDS: ATORVASTATIN CALCIUM 10 MG TABLET PO (20:20)
[2024-12-30] VITALS (9 sets, daily range): BP systolic 113–142; BP diastolic 68–84; PULSE 62–89; RESP 16–100; TEMP 36.2–36.6; O2SAT 95–100
--- NOTE | 2024-12-30 01:05 | PC.NURSE ---
Notify MD Bach of pt's IVF ordered has been discontinued. Per said that it is okay. No new orders made at this time.
[2024-12-30] MEDS: HYDROmorphone INJ 2 MG/ML VIAL 0.25 MG IVP ×4 (01:49→19:28)
[2024-12-30 06:06] LABS: Basophils # (Auto) 0.1 Thou/mm3 (0.0-0.2); Basophils % (Auto) 2 % (0-2.5); Eosinophils # (Auto) 0.3 Thou/mm3 (0.0-0.5); Eosinophils % (Auto) 4 % (0-10); Hematocrit 35.1 % (41.0-53.0); Immature Granulocytes % (Auto) 0 % (0-0); Immature Granulocytes Auto 0.02 Thou/mm3 (0.00-0.00); Lymphocytes # (Auto) 1.8 Thou/mm3 (1.0-4.8); Lymphocytes % (Auto) 30 % (10-50); Mean Corpuscular HGB Conc 34.2 g/dl (31.0-37.0); Mean Corpuscular Hemoglobin 27.7 pg (25.0-35.0); Mean Corpuscular Volume 81 fL (80-100); Monocytes # (Auto) 0.4 Thou/mm3 (0.0-0.8); Monocytes % (Auto) 7 % (0-12); Neutrophils # (Auto) 3.6 Thou/mm3 (1.8-7.7); Neutrophils % (Auto) 57 % (37-80); Nucleated Red Blood Cell % 0 /100 WBC (0); Platelet Count 154 Thou/mm3 (140-440); Red Blood Count 4.33 Miln/mm3 (4.50-5.90); White Blood Count 6.2 Thou/mm3 (3.8-10.6)
[2024-12-30 06:56] LABS: Alanine Aminotransferase 7 U/L (10-49); Albumin, Serum 3.6 gm/dL (3.4-4.8); Albumin/Globulin Ratio 1.7 (1.2-2.2); Alkaline Phosphatase 77 U/L (46-116); Anion Gap 6 (7-16); Aspartate Amino Transferase < 10 U/L (0-34); BUN/Creatinine Ratio 10 Ratio (12-20); Bilirubin,Total 0.4 mg/dL (0.3-1.2); Blood Urea Nitrogen 8 mg/dL (9-23); Calcium (Corrected) 9.3 mg/dL (8.5-10.1); Carbon Dioxide 20.9 mMol/L (20.0-31.0); Chloride 112 mMol/L (98-107); Creatinine (Component) 0.8 mg/dL (0.6-1.3); Estimated Creatinine Clearance 74.7 mL/min (>60); Globulin 2.1 gm/dL (2.3-3.5); Glucose 116 mg/dL (74-106); Osmolality,Calculated 276 (275-295); Potassium 3.8 mMol/L (3.4-5.1); Sodium 139 mMol/L (136-145); Total Protein 5.7 gm/dL (5.7-8.2); eGFR > 60 See Note
[2024-12-30] MEDS: PANTOPRAZOLE INJ 40 MG VIAL IVP (08:29)
[2024-12-30] MEDS: HEPARIN SOD INJ 5000 UNIT/ML VIAL SC ×2 (08:30→21:26)
[2024-12-30] MEDS: METOPROLOL SUCCINATE XL 25 MG TABCR PO ×2 (08:30→21:25)
[2024-12-30] MEDS: CLOPIDOGREL BISULFATE 75 MG TABLET PO (08:30)
--- NOTE | 2024-12-30 14:53 | ESPR_ITS ---
<Statement entered by Gian Sutton MD - 01/05/25 15:56> I reviewed above note and agree with findings and plans. I have also personally examined the patient with medicine team and went over assessment and plan with medical team including [employer] internship and resident physician. Documentation for date of: 12/30/24 Subjective Subjective Interval history: Patient seen at bedside. No acute overnight events. Today, patient reports significant improvement in pain has better appetite and is willing to start clear liquid diet again. MRCP was done yesterday which showed cholelithiasis, minimal pancreatitis and dilated pancreatic duct that is consistent with recurrent bouts of pancreatitis. Consulted surgeon Dr. Larsen, will evaluate patient and decide on need for surgery. Otherwise, will restart patient on clear liquid diet, he is currently not on IV fluids, will advance diet as tolerated. Exam Vital Signs Temp Pulse Resp BP Pulse Ox O2 Del Method 97.6 F 62 18 132/73 H 95 Room Air 12/30/24 12:00 12/30/24 12:00 12/30/24 12:00 12/30/24 12:00 12/30/24 12:12/30/24 12:00 Narrative Exam GENERAL: AAOX3 NEURO: TANK FILLER grossly intact, moves extremities x4 HEENT: Moist mucosa. Eyes open, symmetrical, & clear CARDIO: No chest pain on palpation. Heart RRR, no obvious murmurs PULM: No noted coughing/dyspnea. Lungs CTA B/L GI: Abdomen soft, nondistended, mildly tender to palpation in epigastric region- significantly improved URO/PATTERN ATTENDANT:: No further abnormalities noted. SKIN/MSK/EXT: No wounds/rashes/edema/amputations, no pain on palpation. Pedal pulses present B/L Objective Labs 12/30/24 04:54 12/30/24 04:54 Labs: Laboratory Results - last 24 hr 12/30/24 04:54 WBC 6.2 RBC 4.33 L Hgb 12.0 L Hct 35.1 L MCV 81 MCH 27.7 MCHC 34.2 RDW Std Deviation 42.0 Plt Count 154 D Neut % (Auto) 57 Lymph % (Auto) 30 [place] % (Auto) 7 Eos % (Auto) 4 Baso % (Auto) 2 Neut # (Auto) 3.6 Lymph # (Auto) 1.8 [place] # (Auto) 0.4 Eos # (Auto) 0.3 Baso # (Auto) 0.1 Immature Gran # (Auto) 0.02 H Absolute Nucleated RBC 0.00 Immature Gran % 0 Nucleated RBC % 0 Sodium 139 Potassium 3.8 Chloride 112 H Carbon Dioxide 20.9 Anion Gap 6 L BUN 8 L Creatinine 0.8 Estim Creat Clear Calc 74.7 eGFR > 60 BUN/Creatinine Ratio 10 L Glucose 116 H Calculated Osmolality 276 Calcium 9.0 Corrected Calcium 9.3 Total Bilirubin 0.4 AST < 10 ALT 7 L Alkaline Phosphatase 77 Total Protein 5.7 Albumin 3.6 Globulin 2.1 L Albumin/Globulin Ratio 1.7 Quality Measures Quality Measures none Advance care planning discussed with:: patient Assessment & Plan Assessment Current Active Medications: Generic Name Dose Route Start Last Admin Trade Name Freq PRN Reason Stop Dose Admin Acetaminophen 650 mg 12/29/24 12:19 Acetaminophen 325 Mg Tablet PO 01/27/25 20:54 Q6H PRN Fever >100.4 or Pain 1-3 Hydrocodone Bitart/Acetaminophen 1 tab 12/29/24 12:19 Hydrocodone/Apap 5/325 Tablet PO 01/02/25 20:54 Q6HR PRN PAIN SCALE 4-6 Albuterol 2 puff 12/28/24 23:36 Albuterol Inh 8 Gm INH 01/27/25 23:35 Q4H PRN sob Atorvastatin Calcium 10 mg 12/29/24 21:00 12/29/24 20:20 Atorvastatin Calcium 10 Mg Tablet PO 01/28/25 20:59 10 mg 2100 JUANITA Administration Protocol Clopidogrel Bisulfate 75 mg 12/29/24 09:00 12/30/24 08:30 Clopidogrel Bisulfate 75 Mg Tablet PO 01/28/25 08:59 75 mg QDAY JUANITA Administration Heparin Sodium (Porcine) 5,000 unit 12/29/24 21:00 12/30/24 08:30 Heparin Sod Inj 5000 Unit/Ml Vial SC 01/12/25 08:59 5,000 unit Q12HR JUANITA Administration Hydromorphone HCl 0.25 mg 12/29/24 12:17 12/30/24 13:56 Hydromorphone Inj 2 Mg/Ml Vial IVP 01/03/25 12:16 0.25 mg Q4HR PRN Administration Pain 7-10 Metoprolol Succinate 25 mg 12/29/24 09:00 12/30/24 08:30 Metoprolol Succinate Xl 25 Mg Tabcr PO 01/28/25 08:59 25 mg BID JUANITA Administration Ondansetron HCl 4 mg 12/28/24 20:55 Ondansetron Inj 2 Mg/Ml Inj 2 Ml IV 01/27/25 20:54 Q6H PRN NAUSEA OR VOMITING Protocol Pantoprazole Sodium 40 mg 12/29/24 09:00 12/30/24 08:29 Pantoprazole Inj 40 Mg Vial IVP 01/28/25 08:59 40 mg QDAY JUANITA Administration Plan Summary: The patient is a 69-year-old male with past medical history of COPD, HTN, HLD, CAD s/p 3 stents, alcohol-related liver cirrhosis, and recurrent pancreatitis who presented to the ED on 12/28/2024 with about 3 weeks of epigastric abdominal pain, admitted for acute pancreatitis. #Acute on chronic pancreatitis #Likely gallstone pancreatitis #Cholelithiasis Patient came with about 3 weeks of worsening epigastric pain. Has had prior episodes. He is a long time alcoholic. Currently he has abstained from drinking for 1 month. Lipase 329. While abdomen/pelvis CT showed thickening of the bile duct suspicious for cholangitis, patient does not appear septic, clinical picture does not appear to be obstructive pattern, Tbili is completely normal, vitals are stable, patient is not jaundiced. Regardless, MRCP will be ordered to rule out obstruction. MRCP showed cholelithiasis, minimal pancreatitis and some dilated pancreatic duct, consistent with recurrent bouts of pancreatitis. 12/30/2024- Patient reports improvement in pain, has a better appetite. Pending surgery eval. Will start clear liquid diet and advance as tolerated. Plan: -IVF discontinued -Clear liquid diet, advance as tolerated -Pain management -Surgeon Dr. Larsen consulted, appreciate recommendations -Blood cultures pending #Right lobe liver lesion, 12 mm Abdomen/pelvis CT with contrast showed cirrhosis, suspicious for a 12 mm right lobe liver lesion. Not seen on US gallbladder. -Follow up outpatient with elective MRI #EDUARDO-resolved Creatinine 1.3 mildly elevated from baseline about 0.9-1.0 on admission. Creatinine today is 0.9 -Encourage oral intake #History of COPD Patient reports he takes average 2 puffs of his inhaler daily. -Continue home albuterol as needed #History of HTN -Held home lisinopril in setting of mild EDUARDO #History of HLD -Continue home statin #History of CAD s/p 3 stents -Continue home clopidogrel 75 mg qday -Continue home metoprolol 25 mg BID #History of alcohol-related liver cirrhosis -Counseled the patient on alcohol cessation DVT prophylaxis: Heparin 5,000 U subQ GI prophylaxis: Pantoprazole 40 mg IV daily Diet: Clear liquids advanced as tolerated Bhat: None Lines: Peripheral IV Antibiotics: None CODE STATUS: DNR Case was discussed with attending physician, Dr Lesley Lawler MD PGY-1
--- NOTE | 2024-12-30 15:37 | PC.SS ---
SS spoke with SHARATH Powell, pt is ambulatory and likely can go home with HH
--- NOTE | 2024-12-30 17:22 | PC.NURSE ---
Patient stated that he wanted to go home and sign for AMA. He said that they are not going to do surgery for him anyway. MD notified and talked to the patient. Patient decided to stat one more night and see if he is able to tolerate regualr diet.
--- NOTE | 2024-12-30 18:53 | PD.SURCONS ---
HPI Consult details Consult date: 12/30/24 Reason for consultation narrative: The patient was seen on consultation for gallstones and pancreatitis History of present illness: Patient has been admitted to this hospital with recurrent episodes of pancreatitis and he has a history of alcohol intake for more than 50 years. He stopped drinking past month. In the past he attributes this pancreatitis due to drinking but now the pain is calm because of the gallstones according to the patient. Other medical problem consisted of severe thrombocytopenia in the past probably due to cirrhosis he has been diagnosed as having cirrhosis by the CT scan but has not had any biopsy Past Medical History Past Medical History NEUROLOGIC: Negative Seizures CARDIAC: Positive Cardiac Disorders, Myocardial Infarction (3 CARDIAC STENTS), Hypercholesterolemia and Hypertension; Negative Congestive Heart Failure RESPIRATORY: Positive Respiratory Disorders (COPD), Chronic Obstructive Pulmonary Disease (COPD), Asthma and Bronchitis GASTROINTESTINAL: Positive Cirrhosis and Gall Bladder Disease; Negative Gastrointestinal Bleed GENITOURINARY: Positive Kidney Stones; Negative Renal Disease ENDOCRINE: Negative Diabetes Mellitus Type 1 or Diabetes Mellitus Type 2 HEMATOLOGIC: Negative Sickle Cell Disease OTHER HISTORY: Negative Anesthesia Reactions Family History FAMILY HISTORY: Positive Family Cardiac Disorders; Negative Family Cancer Surgical History SURGICAL: Positive Coronary Stent, Abdominal Surgery and of Shoulder Sx (SCREWS ON R SHOULDER) Social History SMOKING STATUS: Current every day smoker SECOND HAND EXPOSURE: Yes SUBSTANCE USE: marijuana Past Medical History Comments PMH COMMENT: Past Medical History: COPD, HTN, HLD, CAD s/p 3 stents, alcohol-related liver cirrhosis, and recurrent pancreatitis Family History: Notable for cardiac disorders Surgical History: Appendectomy, right shoulder surgery, cardiac stents x3 Social History: Current smoker 55 pack years, alcohol use about 1 pint per day, currently quit for about 1 month, occasional marijuana use Current Medications: Clopidogrel 75 mg qday, lisinopril 5 mg qday, metoprolol succinate 25 mg BID, simvastatin 20 mg qday (Source: Med rec) Allergies: No known drug allergies Meds Home Medications and Allergies Home Medications ?Medication ?Instructions ?Recorded ?Confirmed ?Type albuterol sulfate 90 mcg/actuation 2 puff inhalation Q4H PRN sob 07/13/22 12/28/24 History aerosol inhaler clopidogrel 75 mg tablet 75 mg PO QDAY 07/13/22 12/28/24 History simvastatin 20 mg tablet 20 mg PO QDAY 07/13/22 12/28/24 History metoprolol succinate 25 mg 25 mg PO BID 08/26/23 12/28/24 History tablet,extended release 24 hr Allergies Allergy/AdvReac Type Severity Reaction Status Date / Time No Known Allergies Allergy Verified 12/28/24 13:14 Exam Vital Signs Temp Pulse Resp BP Pulse Ox O2 Del Method 97.6 F 67 17 142/84 H 100 Room Air 12/30/24 16:00 12/30/24 16:00 12/30/24 16:00 12/30/24 16:00 12/30/24 16:00 12/30/24 16:00 Narrative Exam Physical examination revealed a thin built white male who is 5 foot 7 inches tall weighing 135 pounds his vital signs are normal Routine Abdominal Exam Comments: Examination abdomen showed this to be scaphoid with no palpable abnormality. Liver is not enlarged and I cannot feel any spleen enlargement. Rest of the abdomen is unremarkable Results Results: Laboratory Laboratory Narrative: Laboratory workup showed no significant abnormality. His platelets are normal now and his PT PTT is also normal Results: Imaging Imaging narrative: Ultrasound showed gallstones Assessment & Plan Additional Assessment Additional comments: Impression: Cholelithiasis History of cirrhosis of the liver Chronic alcoholism Plan Plan: I am not sure the patient has cirrhosis of the liver. However because of the drinking and because of the CT findings 1 should entertain the possibility for cirrhosis. Usually cirrhosis of the liver will cause bleeding during surgery and I will defer this at this time. However cholecystectomy can be performed in a tertiary Medical Center. Patient son lives near [facility] and he would like to go there. I would like to send all the medical records to him so that he can take it to the [facility] and get the surgery there. Thank you very much
[2024-12-30] MEDS: ATORVASTATIN CALCIUM 10 MG TABLET PO (21:26)
[2024-12-31] VITALS (8 sets, daily range): BP systolic 112–143; BP diastolic 74–91; PULSE 68–80; RESP 17–20; TEMP 36.1–37.2; O2SAT 98–99
[2024-12-31] MEDS: HYDROmorphone INJ 2 MG/ML VIAL 0.25 MG IVP ×5 (00:12→19:26)
[2024-12-31 05:36] LABS: Basophils # (Auto) 0.1 Thou/mm3 (0.0-0.2); Basophils % (Auto) 1 % (0-2.5); Eosinophils # (Auto) 0.4 Thou/mm3 (0.0-0.5); Eosinophils % (Auto) 5 % (0-10); Hematocrit 37.8 % (41.0-53.0); Immature Granulocytes % (Auto) 0 % (0-0); Immature Granulocytes Auto 0.01 Thou/mm3 (0.00-0.00); Lymphocytes # (Auto) 1.7 Thou/mm3 (1.0-4.8); Lymphocytes % (Auto) 23 % (10-50); Mean Corpuscular HGB Conc 34.4 g/dl (31.0-37.0); Mean Corpuscular Volume 81 fL (80-100); Monocytes # (Auto) 0.5 Thou/mm3 (0.0-0.8); Monocytes % (Auto) 7 % (0-12); Neutrophils # (Auto) 4.7 Thou/mm3 (1.8-7.7); Neutrophils % (Auto) 63 % (37-80); Nucleated Red Blood Cell % 0 /100 WBC (0); Platelet Count 167 Thou/mm3 (140-440); RDW Standard Deviation 41.9 fL (35.1-43.9); Red Blood Count 4.65 Miln/mm3 (4.50-5.90); White Blood Count 7.4 Thou/mm3 (3.8-10.6)
[2024-12-31 05:50] LABS: INR 1.1 (0.9-1.3); Partial Thromboplastin Time 29.3 Seconds (22.0-36.0); Prothrombin Time 12.1 Seconds (9.0-12.2)
[2024-12-31 06:21] LABS: Alanine Aminotransferase 7 U/L (10-49); Albumin/Globulin Ratio 1.7 (1.2-2.2); Alkaline Phosphatase 83 U/L (46-116); Anion Gap 8 (7-16); Aspartate Amino Transferase < 8 U/L (0-34); BUN/Creatinine Ratio 11 Ratio (12-20); Bilirubin,Total 0.3 mg/dL (0.3-1.2); Blood Urea Nitrogen 9 mg/dL (9-23); Calcium 9.2 mg/dL (8.3-10.6); Calcium (Corrected) 9.2 mg/dL (8.5-10.1); Carbon Dioxide 21.7 mMol/L (20.0-31.0); Chloride 109 mMol/L (98-107); Creatinine (Component) 0.8 mg/dL (0.6-1.3); Estimated Creatinine Clearance 74.7 mL/min (>60); Globulin 2.4 gm/dL (2.3-3.5); Glucose 127 mg/dL (74-106); Osmolality,Calculated 278 (275-295); Potassium 3.6 mMol/L (3.4-5.1); Sodium 139 mMol/L (136-145); Total Protein 6.4 gm/dL (5.7-8.2); eGFR > 60 See Note
[2024-12-31] MEDS: PANTOPRAZOLE INJ 40 MG VIAL IVP (08:22)
[2024-12-31] MEDS: METOPROLOL SUCCINATE XL 25 MG TABCR PO ×2 (08:22→20:22)
[2024-12-31] MEDS: CLOPIDOGREL BISULFATE 75 MG TABLET PO (08:22)
[2024-12-31] MEDS: HEPARIN SOD INJ 5000 UNIT/ML VIAL SC ×2 (08:23→20:19)
[2024-12-31] MEDS: SODIUM CHLORIDE 0.9% 1000 ML 1,000 ML 80 ML IV (09:57)
--- NOTE | 2024-12-31 11:16 | PC.SS ---
Francisco J Dixon is a 69-year-old male admitted to [facility] for Pancreatitis. SS conducted bedside contact with the patient to complete initial assessment and to discuss discharge planning.? Patient confirmed demographic information. Patient identifies Son Andrew Friedman [phone] as his surrogate decision maker. Patient resides at home, alone. Pt states he is able to complete all ADL?s independently, no need for any source of DME. Pts PCP is Dr. Aydee Wu (been years since visit) and pharmacy of choice is [facility] on [address]. DC option discussed and pt wishes to return home. Pts has his private transportation upon DC. No further intervention required at this time, social service technician would be available to address any further concerns. DC Plan: Home Contact: Alton Friedman [phone] ? PCP: [facility]
--- NOTE | 2024-12-31 12:55 | ESPR_ITS ---
<Statement entered by Gian Sutton MD - 01/05/25 15:58> I reviewed above note and agree with findings and plans. I have also personally examined the patient with medicine team and went over assessment and plan with medical team including buyer intern and resident physician. Documentation for date of: 12/31/24 Subjective Subjective Interval history: Patient seen at bedside. He is eager to go home and had a trial of regular diet for dinner. However, patient was unable to tolerate diet and said he was not severe pain having consumed only about 10%. Counseled patient on the need to continue with fluids and pain management as well as optimize nutrition prior to discharge. Will de-escalate diet to clear liquid and continue IV fluid as well as pain management. General surgeon Dr. Larsen saw patient yesterday but will not be doing the surgery at this time due to patient's documented history of cirrhosis and recommended a tertiary level of care. Exam Vital Signs Temp Pulse Resp BP Pulse Ox O2 Del Method 97.8 F 69 17 143/91 H 99 Room Air 12/31/24 08:00 12/31/24 08:22 12/31/24 08:00 12/31/24 08:22 12/31/24 08:00 12/31/24 08:00 Narrative Exam GENERAL: AAOX3 NEURO: AMUSEMENT PARK WORKER grossly intact, moves extremities x4 HEENT: Moist mucosa. Eyes open, symmetrical, & clear CARDIO: No chest pain on palpation. Heart RRR, no obvious murmurs PULM: No noted coughing/dyspnea. Lungs CTA B/L GI: Abdomen soft, nondistended, mildly tender to palpation in epigastric region- significantly improved URO/YARDER OPERATOR:: No further abnormalities noted. SKIN/MSK/EXT: No wounds/rashes/edema/amputations, no pain on palpation. Pedal pulses present B/L Objective Labs 12/31/24 04:32 12/31/24 04:32 Labs: Laboratory Results - last 24 hr 12/31/24 04:32 WBC 7.4 RBC 4.65 Hgb 13.0 L Hct 37.8 L MCV 81 MCH 28.0 MCHC 34.4 RDW Std Deviation 41.9 Plt Count 167 Neut % (Auto) 63 Lymph % (Auto) 23 Stewart % (Auto) 7 Eos % (Auto) 5 Baso % (Auto) 1 Neut # (Auto) 4.7 Lymph # (Auto) 1.7 Stewart # (Auto) 0.5 Eos # (Auto) 0.4 Baso # (Auto) 0.1 Immature Gran # (Auto) 0.01 H Absolute Nucleated RBC 0.00 Immature Gran % 0 Nucleated RBC % 0 PT 12.1 INR 1.1 APTT 29.3 Sodium 139 Potassium 3.6 Chloride 109 H Carbon Dioxide 21.7 Anion Gap 8 BUN 9 Creatinine 0.8 Estim Creat Clear Calc 74.7 eGFR > 60 BUN/Creatinine Ratio 11 L Glucose 127 H Calculated Osmolality 278 Calcium 9.2 Corrected Calcium 9.2 Total Bilirubin 0.3 AST < 8 ALT 7 L Alkaline Phosphatase 83 Total Protein 6.4 Albumin 4.0 Globulin 2.4 Albumin/Globulin Ratio 1.7 Quality Measures Quality Measures none Advance care planning discussed with:: patient Assessment & Plan Assessment Current Active Medications: Generic Name Dose Route Start Last Admin Trade Name Freq PRN Reason Stop Dose Admin Acetaminophen 650 mg 12/29/24 12:19 Acetaminophen 325 Mg Tablet PO 01/27/25 20:54 Q6H PRN Fever >100.4 or Pain 1-3 Hydrocodone Bitart/Acetaminophen 1 tab 12/29/24 12:19 Hydrocodone/Apap 5/325 Tablet PO 01/02/25 20:54 Q6HR PRN PAIN SCALE 4-6 Albuterol 2 puff 12/28/24 23:36 Albuterol Inh 8 Gm INH 01/27/25 23:35 Q4H PRN sob Atorvastatin Calcium 10 mg 12/29/24 21:00 12/30/24 21:26 Atorvastatin Calcium 10 Mg Tablet PO 01/28/25 20:59 10 mg 2100 JUANITA Administration Protocol Clopidogrel Bisulfate 75 mg 12/29/24 09:00 12/31/24 08:22 Clopidogrel Bisulfate 75 Mg Tablet PO 01/28/25 08:59 75 mg QDAY JUANITA Administration Heparin Sodium (Porcine) 5,000 unit 12/29/24 21:00 12/31/24 08:23 Heparin Sod Inj 5000 Unit/Ml Vial SC 01/12/25 08:59 5,000 unit Q12HR JUANITA Administration Hydromorphone HCl 0.25 mg 12/29/24 12:17 12/31/24 08:22 Hydromorphone Inj 2 Mg/Ml Vial IVP 01/03/25 12:16 0.25 mg Q4HR PRN Administration Pain 7-10 Sodium Chloride 1,000 mls @ 80 mls/hr 12/31/24 08:59 12/31/24 09:57 Ns IV 01/30/25 08:58 80 mls/hr .[id number] JUANITA Administration Metoprolol Succinate 25 mg 12/29/24 09:00 12/31/24 08:22 Metoprolol Succinate Xl 25 Mg Tabcr PO 01/28/25 08:59 25 mg BID JUANITA Administration Ondansetron HCl 4 mg 12/28/24 20:55 Ondansetron Inj 2 Mg/Ml Inj 2 Ml IV 01/27/25 20:54 Q6H PRN NAUSEA OR VOMITING Protocol Pantoprazole Sodium 40 mg 12/29/24 09:00 12/31/24 08:22 Pantoprazole Inj 40 Mg Vial IVP 01/28/25 08:59 40 mg QDAY JUANITA Administration Plan Summary: The patient is a 69-year-old male with past medical history of COPD, HTN, HLD, CAD s/p 3 stents, alcohol-related liver cirrhosis, and recurrent pancreatitis who presented to the ED on 12/28/2024 with about 3 weeks of epigastric abdominal pain, admitted for acute pancreatitis. #Acute on chronic pancreatitis #Likely gallstone pancreatitis #Cholelithiasis Patient came with about 3 weeks of worsening epigastric pain. Has had prior episodes. He is a long time alcoholic. Currently he has abstained from drinking for 1 month. Lipase 329. While abdomen/pelvis CT showed thickening of the bile duct suspicious for cholangitis, patient does not appear septic, clinical picture does not appear to be obstructive pattern, Tbili is completely normal, vitals are stable, patient is not jaundiced. Regardless, MRCP will be ordered to rule out obstruction. MRCP showed cholelithiasis, minimal pancreatitis and some dilated pancreatic duct, consistent with recurrent bouts of pancreatitis. 12/31/2024-patient had a trial of regular diet yesterday, was unable to tolerate. Recommended to continue on IV fluids and clear liquid diet trials and advance as tolerated. General surgery evaluated, no intervention at this time. Plan: -IVF at 100 cc/h -Clear liquid diet, advance as tolerated -Pain management #Right lobe liver lesion, 12 mm Abdomen/pelvis CT with contrast showed cirrhosis, suspicious for a 12 mm right lobe liver lesion. Not seen on US gallbladder. -Follow up outpatient with elective MRI #EDUARDO-resolved Creatinine 1.3 mildly elevated from baseline about 0.9-1.0 on admission. Creatinine today is 0.9 -Encourage oral intake #History of COPD Patient reports he takes average 2 puffs of his inhaler daily. -Continue home albuterol as needed #History of HTN -Held home lisinopril in setting of mild EDUARDO #History of HLD -Continue home statin #History of CAD s/p 3 stents -Continue home clopidogrel 75 mg qday -Continue home metoprolol 25 mg BID #History of alcohol-related liver cirrhosis -Counseled the patient on alcohol cessation DVT prophylaxis: Heparin 5,000 U subQ GI prophylaxis: Pantoprazole 40 mg IV daily Diet: Clear liquids advanced as tolerated Bhat: None Lines: Peripheral IV Antibiotics: None CODE STATUS: DNR Case was discussed with attending physician, Dr Lesley Lawler MD PGY-1
[2024-12-31] MEDS: SODIUM CHLORIDE 0.9% 1000 ML 1,000 ML 100 ML IV (20:23)
[2024-12-31] MEDS: ATORVASTATIN CALCIUM 10 MG TABLET PO (20:23)
[2025-01-01] VITALS: BP 140/86; PULSE 72; RESP 17; TEMP 36.8; O2SAT 99
--- NOTE | 2025-01-01 00:12 | PC.NURSE ---
accessed patient's chart to cover for main nurse.
[2025-01-01] MEDS: HYDROmorphone INJ 2 MG/ML VIAL 0.25 MG IVP ×3 (00:13→09:42)
[2025-01-01 04:00] VITALS: BP 135/75; PULSE 69; RESP 16; TEMP 36.3; O2SAT 98
[2025-01-01 05:45] LABS: Basophils # (Auto) 0.1 Thou/mm3 (0.0-0.2); Basophils % (Auto) 1 % (0-2.5); Eosinophils # (Auto) 0.4 Thou/mm3 (0.0-0.5); Eosinophils % (Auto) 6 % (0-10); Hematocrit 38.4 % (41.0-53.0); Immature Granulocytes % (Auto) 0 % (0-0); Immature Granulocytes Auto 0.01 Thou/mm3 (0.00-0.00); Lymphocytes # (Auto) 1.9 Thou/mm3 (1.0-4.8); Lymphocytes % (Auto) 30 % (10-50); Mean Corpuscular HGB Conc 33.9 g/dl (31.0-37.0); Mean Corpuscular Hemoglobin 27.3 pg (25.0-35.0); Mean Corpuscular Volume 81 fL (80-100); Monocytes # (Auto) 0.4 Thou/mm3 (0.0-0.8); Monocytes % (Auto) 6 % (0-12); Neutrophils # (Auto) 3.6 Thou/mm3 (1.8-7.7); Neutrophils % (Auto) 57 % (37-80); Nucleated Red Blood Cell % 0 /100 WBC (0); Platelet Count 149 Thou/mm3 (140-440); RDW Standard Deviation 41.9 fL (35.1-43.9); Red Blood Count 4.77 Miln/mm3 (4.50-5.90); White Blood Count 6.4 Thou/mm3 (3.8-10.6)
[2025-01-01 06:29] LABS: Alanine Aminotransferase < 7 U/L (10-49); Albumin, Serum 4.1 gm/dL (3.4-4.8); Albumin/Globulin Ratio 1.7 (1.2-2.2); Alkaline Phosphatase 84 U/L (46-116); Anion Gap 7 (7-16); Aspartate Amino Transferase < 10 U/L (0-34); BUN/Creatinine Ratio 9 Ratio (12-20); Bilirubin,Total 0.4 mg/dL (0.3-1.2); Blood Urea Nitrogen 7 mg/dL (9-23); Carbon Dioxide 24.7 mMol/L (20.0-31.0); Chloride 107 mMol/L (98-107); Creatinine (Component) 0.8 mg/dL (0.6-1.3); Estimated Creatinine Clearance 74.7 mL/min (>60); Globulin 2.4 gm/dL (2.3-3.5); Glucose 119 mg/dL (74-106); Osmolality,Calculated 276 (275-295); Potassium 3.3 mMol/L (3.4-5.1); Sodium 139 mMol/L (136-145); Total Protein 6.5 gm/dL (5.7-8.2); eGFR > 60 See Note
[2025-01-01 07:59] VITALS: BP 147/79; PULSE 62; RESP 18; TEMP 36.5; O2SAT 99
[2025-01-01 08:06] VITALS: BP 147/79; PULSE 62
[2025-01-01] MEDS: METOPROLOL SUCCINATE XL 25 MG TABCR PO (08:06)
[2025-01-01] MEDS: PANTOPRAZOLE INJ 40 MG VIAL IVP (08:06)
[2025-01-01] MEDS: HEPARIN SOD INJ 5000 UNIT/ML VIAL SC (08:06)
[2025-01-01] MEDS: CLOPIDOGREL BISULFATE 75 MG TABLET PO (08:06)
[2025-01-01 11:46] VITALS: BP 141/81; PULSE 62; RESP 16; TEMP 36.1; O2SAT 99
--- NOTE | 2025-01-01 13:39 | PC.NURSE ---
Patient stated that he tolerated his lunch well. No nausea, vomiting or pain reported. Discharged patient as ordered after tolerating regular meal at lunch time.
--- NOTE | 2025-01-01 16:55 | ESDS_ITS ---
<Statement entered by Gian uStton MD - 01/09/25 11:49> I reviewed above note and agree with findings and plans. I have also personally examined the patient with medicine team and went over assessment and plan with medical team including undergraduate internship and resident physician. Planned Discharge Date 01/01/25 DS: Providers Provider Date of admission: 12/28/24 20:49 Primary care physician: SINTIA Cardozo Admitting Provider: Jose Correia MD Attending Provider on Admission: Gian Sutton MD Consults: 12/29/24 10:53 Consult to General Surgery Urgent Comment: cholelithiasis Consulting Provider: Tara Jugn Attending Provider on DC: Ag Stevens MD Discharging Provider: Ag Stevens MD DS: Diagnosis Problem List Completed Was Problem List Reviewed/Reconciled?: Yes Hospital Course Hospital Course Hospital course: Patient is a 69-year-old male with past medical history of COPD, HTN, HLD, CAD s/p 3 stents, alcohol-related liver cirrhosis, and recurrent pancreatitis who presented to the ED on 12/28/2024 with about 3 weeks of worsening epigastric abdominal pain. Pain was accompanied with nausea and he reports poor appetite with 10 lb weight loss in the last 3 weeks. Patient has had previous episodes of pancreatitis in the past. He states he has abstained from alcohol for the past 1 month but has been going back and forth between abstaining and resuming alcohol use. Initial vitals showed sinus tachycardia of 124, otherwise hemodynamically stable. Labs significant for WBC 13.2, creatinine 1.3 (baseline 0.9-1.0), lipase 329. Abdomen/pelvis CT with contrast showed cirrhosis, suspicious for a 12 mm right lobe liver lesion, cholelithiasis, suspicious for pancreatitis, wall thickening of the common bile duct suspicious for cholangitis, marked thickening of the urinary bladder wall. Gallbladder US showed cholelithiasis, negative for cholecystitis, and cirrhosis versus primary hepatocellular disease, no liver l esions. In the ED, patient was given 1L IV NS bolus x1, morphine 4 mg IV x1, Zofran 4 mg IV x1, Zosyn 3.375 gm IV x1. Patient was admitted for acute pancreatitis management and was started on IVF and pain control. His symptoms significantly improved and he was started on clear liquid diet but was not able to tolerate. Over the next day he was again started on clear liquid diet with good tolerance, diet was advanced to solid food, he was able to tolerate it well. He was stable for discharge today. Continue home medications as prescribed. Follow low fat diet. Follow up with Primary Care Provider within 2 weeks. #Acute on chronic pancreatitis. #Cholelithiasis. #Right lobe liver lesion, 12 mm. #EDUARDO-resolved. #History of COPD. #History of HTN. #History of HLD. #History of CAD s/p 3 stents. #History of alcohol-related liver cirrhosis. Plan of care discussed with attending Dr. Sutton. Ag Stevens MD, PGY 2. Disclaimer: This note was dictated by speech recognition. Minor errors in nurse prn may be present due to voice recognition software. Time Spent with Patient Time attestation: Total time spent providing and/or coordinating discharge services:40 min Exam Vital Signs Temp Pulse Resp BP Pulse Ox O2 Del Method 97.0 F 62 16 141/81 H 99 Room Air 01/01/25 11:46 01/01/25 11:46 01/01/25 11:46 01/01/25 11:46 01/01/25 11:46 01/01/25 11:46 Discharge Plan Plan Patient Disposition: HOME (Self Care) Care Plan Goals: Continue home medications as prescribed. Follow low fat diet. Follow up with Primary Care Provider within 2 weeks. -If you don't have a PCP, you can make an appointment at the [facility]: [address] [place] [address] Prescriptions/Referrals Prescriptions/Med Rec: Continued clopidogrel 75 mg tablet 75 mg PO QDAY simvastatin 20 mg tablet 20 mg PO QDAY albuterol sulfate 90 mcg/actuation HFA aerosol inhaler 2 puff INHALATION Q4H PRN (Reason: sob) metoprolol succinate 25 mg tablet extended release 24 hr 25 mg PO BID Patient Comments: TAKE 1 TABLET BY MOUTH ONCE AM; TAKE 1 TABLET BY MOUTH ONCE PM lisinopril 5 mg tablet 5 mg PO QDAY 30 Days Qty: 30 0RF Referrals: Aydee Wu FNP [Primary Care Provider] - Patient/Caregiver Discharge Instructions Education Materials: Understanding Pancreatitis Print Language: Greenlandic Stand Alone Forms: Jane Award Info., Patient Portal Info Letter Discharge Order Discharge Orders: Discharge (Routine); Ordered 01/01/25 Ordered By: Ag Stevens Quality Discharge Quality Measures VTE prophylaxis
== END 2025-01-01 13:05 | disposition home or self-care (01) | DRG 439 ==
LOC: SERX 20:19 → SERHOLD 22:21 → S3NX 22:32
PROVIDERS: Nurse Practitioner Family; Student in an Organized Health Care Education/Training Program; Admitting Provider Internal Medicine; Emergency Provider Emergency Medicine; PCP Nurse Practitioner Family; Visit Provider Internal Medicine
DX: K85.90 Acute pancreatitis without necrosis or infection, unspecified (principal); N17.9 Acute kidney failure, unspecified; I10 Essential (primary) hypertension; K70.30 Alcoholic cirrhosis of liver without ascites; K80.20 Calculus of gallbladder without cholecystitis without obstruction; E78.5 Hyperlipidemia, unspecified; I25.10 Atherosclerotic heart disease of native coronary artery without angina pectoris; J44.9 Chronic obstructive pulmonary disease, unspecified; F10.20 Alcohol dependence, uncomplicated; F17.210 Nicotine dependence, cigarettes, uncomplicated; K76.9 Liver disease, unspecified; K86.1 Other chronic pancreatitis; Z66 Do not resuscitate; Z95.5 Presence of coronary angioplasty implant and graft; Z79.02 Long term (current) use of antithrombotics/antiplatelets; Z79.899 Other long term (current) drug therapy
CPT/HCPCS: 36415; 74177; 76705; 80053; 80061; 81001; 83690; 83735; 84100; 85025; 85610; 85730; 87040; 93005; 96361; 96365; 96375; 99285; A4649; J1643; J2270; J2405; J2470; J2543; J3475; J3490; J7030; Q9967; S8037; 74181; A9270

== ENCOUNTER 2025-01-07 13:07 | Emergency (ER) | payer MEDICARE, SELFPAY ==
[2025-01-07 13:08] VITALS: BMI 21.9
[2025-01-07 13:39] VITALS: BP 138/95; PULSE 85; RESP 18; TEMP 36.6; O2SAT 99
--- NOTE | 2025-01-07 14:04 | PD.EDRME ---
Rapid Medical Screening Exam RME Arrival date/time: 01/07/25 13:07 This is a 69-year-old male with past medical history of COPD, HTN, HLD, CAD s/p 3 stents, alcohol-related liver cirrhosis, and recurrent pancreatitis who presented to the ED previously on 12/28/2024 with about 3 weeks of worsening epigastric abdominal pain. Previous Abdomen/pelvis CT with contrast showed cirrhosis, suspicious for a 12 mm right lobe liver lesion, cholelithiasis, suspicious for pancreatitis, wall thickening of the common bile duct suspicious for cholangitis, marked thickening of the urinary bladder wall. Gallbladder US showed cholelithiasis, negative for cholecystitis, and cirrhosis versus primary hepatocellular disease, no liver lesions. Patient was admitted for a few days and was able to tolerate p.o. fluids and discharged home. Patient was told that he would need to find a surgeon out of the area to operate on him because he is high risk because of his liver cirrhosis. Patient states he was in the process of looking for a another facility to operate on him but started having abdominal pain nausea vomiting. Patient states he is not able to keep anything down. I have greeted and performed a focused initial assessment of this patient. Initial appropriate labs ordered at this time. A comprehensive ED assessment and evaluation of the patient and analysis of all test and completion of medical decision making process will be conducted by additional ED provider. Chief Complaint: Abdominal Pain Time Seen by Provider: 01/07/25 13:46 Vital signs: Vital Signs Temperature 97.8 F 01/07/25 13:39 Pulse Rate 85 01/07/25 13:39 Respiratory Rate 18 01/07/25 13:39 Blood Pressure 138/95 H 01/07/25 13:39 Pulse Oximetry (%) 99 01/07/25 13:39 Oxygen Delivery Method Room Air 01/07/25 13:39
[2025-01-07 14:15] LABS: Basophils # (Auto) 0.1 Thou/mm3 (0.0-0.2); Basophils % (Auto) 1 % (0-2.5); Eosinophils # (Auto) 0.4 Thou/mm3 (0.0-0.5); Eosinophils % (Auto) 3 % (0-10); Hematocrit 43.1 % (41.0-53.0); Hemoglobin 14.7 g/dL (13.5-16.0); Immature Granulocytes % (Auto) 1 % (0-0); Immature Granulocytes Auto 0.07 Thou/mm3 (0.00-0.00); Lymphocytes # (Auto) 1.4 Thou/mm3 (1.0-4.8); Lymphocytes % (Auto) 10 % (10-50); Mean Corpuscular HGB Conc 34.1 g/dl (31.0-37.0); Mean Corpuscular Hemoglobin 27.7 pg (25.0-35.0); Mean Corpuscular Volume 81 fL (80-100); Monocytes # (Auto) 1.1 Thou/mm3 (0.0-0.8); Monocytes % (Auto) 8 % (0-12); Neutrophils # (Auto) 10.6 Thou/mm3 (1.8-7.7); Neutrophils % (Auto) 78 % (37-80); Nucleated Red Blood Cell % 0 /100 WBC (0); Platelet Count 273 Thou/mm3 (140-440); RDW Standard Deviation 43.3 fL (35.1-43.9); Red Blood Count 5.31 Miln/mm3 (4.50-5.90); White Blood Count 13.7 Thou/mm3 (3.8-10.6)
[2025-01-07 14:39] LABS: Alanine Aminotransferase 17 U/L (10-49); Albumin, Serum 4.6 gm/dL (3.4-4.8); Albumin/Globulin Ratio 1.7 (1.2-2.2); Alkaline Phosphatase 130 U/L (46-116); Anion Gap 8 (7-16); Aspartate Amino Transferase 17 U/L (0-34); BUN/Creatinine Ratio 13 Ratio (12-20); Bilirubin,Total 0.5 mg/dL (0.3-1.2); Blood Urea Nitrogen 14 mg/dL (9-23); Calcium 9.7 mg/dL (8.3-10.6); Calcium (Corrected) 9.7 mg/dL (8.5-10.1); Carbon Dioxide 22.7 mMol/L (20.0-31.0); Chloride 104 mMol/L (98-107); Creatinine (Component) 1.1 mg/dL (0.6-1.3); Estimated Creatinine Clearance 56.1 mL/min (>60); Globulin 2.7 gm/dL (2.3-3.5); Glucose 167 mg/dL (74-106); Lipase 431 U/L (12-53); Osmolality,Calculated 274 (275-295); Potassium 3.6 mMol/L (3.4-5.1); Sodium 135 mMol/L (136-145); Total Protein 7.3 gm/dL (5.7-8.2); eGFR > 60 See Note
[2025-01-07] MEDS: ONDANSETRON ODT 4 MG TABRAP PO (14:41)
[2025-01-07 15:03] LABS: Collection Type, Urine Voided
[2025-01-07 15:06] VITALS: BP 161/88; PULSE 78; RESP 18; TEMP 36.5; O2SAT 95
[2025-01-07 15:17] LABS: Bilirubin,Urine Negative (Negative); Blood,Urine Negative (Negative); Clarity,Urine Clear (Clear/Hazy); Color,Urine Yellow (Lt Yel-Yel); Culture Indicated,Urine Not Indicated; Glucose, Urine Negative (Negative); Ketones,Urine 2+ (Negative); Leukocyte Esterase,Urine Negative (Negative); Nitrite,Urine Negative (Negative); Protein,Urine 1+ (Neg - Trace); RBC,Urine 2 /hpf (0-3); Specific Gravity,Urine 1.029 (1.001-1.035); Squamous Epithelial Cell,Urine < 1 /hpf (0-5); Urobilinogen,Urine Negative mg/dL (0.0-1.0); WBC,Urine 3 /hpf (0-5)
--- NOTE | 2025-01-07 15:17 | PC.NURSE ---
Pt coming in from ED lobby with c/o N/V x1 week and small diarrhea last night; pt recently released from hospital admission on 01/01/25, but per pt, I was fine the first day after I got released but, then the pain in my stomach went back. I haven't been able to keep anything down for the past 3 days and even just drinking water hurts my stomach. Pt denies vomiting upon arrival but reports having dry heaves. Pt has hx of cirrhosis, pancreatitis, gallstones, NM (3 coronary stents), and COPD. Pt connected to monitors at this time.
--- NOTE | 2025-01-07 15:32 | PD.EDABDPN ---
ED Abdominal Pain RME/HPI General Chief Complaint: Abdominal Pain Stated complaint: ABD PAIN/VOMITING SINCE [facility] Time seen by provider: 01/07/25 13:46 Arrival date/time: 01/07/25 13:07 RME / HPI RME / HPI narrative: 01/07/25 13:07 This is a 69-year-old male with past medical history of COPD, HTN, HLD, CAD s/p 3 stents, alcohol-related liver cirrhosis, and recurrent pancreatitis who presented to the ED previously on 12/28/2024 with about 3 weeks of worsening epigastric abdominal pain. Previous Abdomen/pelvis CT with contrast showed cirrhosis, suspicious for a 12 mm right lobe liver lesion, cholelithiasis, suspicious for pancreatitis, wall thickening of the common bile duct suspicious for cholangitis, marked thickening of the urinary bladder wall. Gallbladder US showed cholelithiasis, negative for cholecystitis, and cirrhosis versus primary hepatocellular disease, no liver lesions. Patient was admitted for a few days and was able to tolerate p.o. fluids and discharged home. Patient was told that he would need to find a surgeon out of the area to operate on him because he is high risk because of his liver cirrhosis. Patient states he was in the process of looking for a another facility to operate on him but started having abdominal pain nausea vomiting. Patient states he is not able to keep anything down. I have greeted and performed a focused initial assessment of this patient. Initial appropriate labs ordered at this time. A comprehensive ED assessment and evaluation of the patient and analysis of all test and completion of medical decision making process will be conducted by additional ED provider. DR. MARTINEZ MAIN ED EVALUATION: 69 year old male presents to the Emergency Department with complaint of abdominal pain, mainly epigastric area and right upper quadrant areas. Associated symptoms include nausea and dry heaving; denies actual vomiting. Patient was last admitted for acute pancreatitis on 12/28/24 through 01/01/25. States he was initially well after d/c but abdominal pain is progressively returning and patient states he has been unable to take POs. PMHx: COPD, HTN, HLD, CAD s/p 3 stents, alcohol-related liver cirrhosis, and recurrent pancreatitis. Social Hx: Marijuana use Related Data Home Medications ?Medication ?Instructions ?Recorded ?Confirmed albuterol sulfate 90 mcg/actuation 2 puff inhalation Q4H PRN sob 07/13/22 12/28/24 aerosol inhaler clopidogrel 75 mg tablet 75 mg PO QDAY 07/13/22 12/28/24 simvastatin 20 mg tablet 20 mg PO QDAY 07/13/22 12/28/24 metoprolol succinate 25 mg 25 mg PO BID 08/26/23 12/28/24 tablet,extended release 24 hr Previous Rx's ?Medication ?Instructions ?Recorded lisinopril 5 mg tablet 5 mg PO QDAY 30 days #30 tabs 03/02/23 hydrocodone 5 mg-acetaminophen 325 1 tab PO Q6H PRN pain #14 tabs 01/07/25 mg tablet lansoprazole 30 mg capsule,delayed 30 mg PO QDAY #30 caps 01/07/25 release ondansetron 4 mg disintegrating 4 mg PO Q8H PRN nausea and 01/07/25 tablet vomiting #10 tabs Allergies Allergy/AdvReac Type Severity Reaction Status Date / Time No Known Allergies Allergy Verified 01/07/25 13:10 Review of Systems Review of Systems Systems Reviewed: All systems reviewed, normal except as documented Narrative Review of Systems: GEN: No fever, no chills, no weight loss EYES: No discharge, no visual changes, no pain HEENT: No ear pain, no congestion, no sore throat PULM: No shortness of breath, no cough, no congestion CV: No chest pain, no dyspnea on exertion, no palpitations GI: + nausea, + dry heaving, no vomiting, no diarrhea, + abdominal pain, mainly epigastric area and right upper quadrant areas, no constipation : No frequency, no urgency and no dysuria MUSC/SKEL: No joint pain, no back pain SKIN: No rash PSYCH: No hallucinations, no depression HEME/LYMPH: No easy bleeding or bruising tendencies NEURO: No weakness, no headache Past Medical History Past Medical History CARDIAC: Positive Cardiac Disorders, Myocardial Infarction (3 cardiac stents), Hypercholesterolemia and Hypertension RESPIRATORY: Positive Chronic Obstructive Pulmonary Disease (COPD), Asthma and Bronchitis GASTROINTESTINAL: Positive Cirrhosis and Gall Bladder Disease (hx gallstones) GENITOURINARY: Positive Kidney Stones Family History FAMILY HISTORY: Positive Family Cardiac Disorders Surgical History SURGICAL: Positive Coronary Stent and Abdominal Surgery Social History SMOKING STATUS: Never smoker SECOND HAND EXPOSURE: Yes SUBSTANCE USE: marijuana ALCOHOL: Never ED Exam Narrative Physical exam: GENERAL APPEARANCE: alert and oriented x 4, well-developed, well-nourished, no acute distress VITALS: All vitals were reviewed and the pulse ox is 95% on room air, which is normal according to my interpretation. HEENT: Normocephalic, atraumatic; pupils equal, round, reactive to light; EOMI; mucous membranes pink, moist; oropharynx clear NECK: Supple LUNGS: CTABL; no wheezes, no rales, no rhonchi HEART: Regular rate, regular rhythm; normal S1, S2; no murmurs ABDOMEN: non distended; normal BS; soft, no tenderness, no guarding, no rebound; no masses, no organomegaly, no hernia BACK: no CVA tenderness EXTREMITIES: atraumatic; no edema NEUROLOGIC: awake; alert and oriented x4; cranial nerves II-XII grossly intact; no focal sensory or motor deficits PSYCHIATRIC: appropriate mood and affect SKIN: warm, dry, normal color; no rashes Course Quality Measures none Orders Category Date Time Status CBC Stat Lab 01/07/25 14:06 Completed Comprehensive Metabolic Panel Stat Lab 01/07/25 14:06 Completed Lipase Stat Lab 01/07/25 14:06 Completed Urinalysis, C/S if Indicated Stat Lab 01/07/25 14:10 Completed Lidocaine 2% Viscous [Xylocaine 2% Viscous] Med 01/07/25 16:38 Discontinued 15 ml PO X1 ONE Morphine Inj Med 01/07/25 15:59 Discontinued 5 mg IVP X1 ONE Ondansetron Inj [Zofran Inj] Med 01/07/25 15:59 Discontinued 4 mg IV X1 ONE Ondansetron Odt [Zofran Odt] Med 01/07/25 13:59 Discontinued 4 mg PO X1 ONE Pantoprazole Inj [Protonix Inj] Med 01/07/25 16:01 Discontinued 40 mg IV X1 ONE Sodium Chloride 0.9% 1000 ml [Ns] 1,000 ml Med 01/07/25 16:00 Discontinued IV 999 mls/hr Sodium Chloride 0.9% 1000 ml [Ns] 1,000 ml Med 01/07/25 16:01 Discontinued IV 999 mls/hr Sucralfate Susp [Carafate Susp] Med 01/07/25 16:38 Discontinued 1 gm PO X1 ONE mg Hyd/Al Hyd/Luis Alberto Susp [Maalox Susp] Med 01/07/25 16:38 Discontinued 30 ml PO X1 ONE Vital Signs Vital signs: Vital Signs Temperature 97.8 F 01/07/25 13:39 Pulse Rate 85 01/07/25 13:39 Respiratory Rate 18 01/07/25 13:39 Blood Pressure 138/95 H 01/07/25 13:39 Pulse Oximetry (%) 99 01/07/25 13:39 Oxygen Delivery Method Room Air 01/07/25 13:39 Abdominal Pain MDM MDM Narrative MDM Narrative:: Last admitted for acute pancreatitis on 12/28/24 through 01/01/25. Reviewed labs from 11/3024 lipase was 328 and today 431. WBC today 13.7. Ur Specific [place] 1.029. Joy Corona am scribing for and in the presence of Dr. Martinez. Patient data External records reviewed:: [facility] previous records (Reviewed last admission discharge dated 01/01/25, patient admitted for the following: Acute pancreatitis) Clinical information provided by:: patient Social determinants that could affect healthcare access:: substance use (Marijuana use) Patient has the following chronic illnesses:: COPD, HTN, HLD, CAD s/p 3 stents, alcohol-related liver cirrhosis, and recurrent pancreatitis How is presenting disease/condition affected by chronic disease/condition?: exacerbated by Evaluation data The following diagnostics were reviewed and interpreted by me:: lab results Lab and/or radiology exams considered but not ordered:: none Interpretation Summary: Reviewed labs from 11/3024 lipase was 328 and today 431. WBC today 13.7. Ur Specific [place] 1.029. Medications / Prescriptions Medications or Prescriptions considered but not ordered:: none Medication administrations:: Medication Administration History Discontinued Medications Al Hydrox/Mg Hydrox/Simethicone (Mg Hyd/Al Hyd/Luis Alberto (Maalox Reg) Susp 30 Ml Udc) 30 ml PO X1 ONE Stop: 01/07/25 16:39 Last Admin: 01/07/25 16:45 Dose: 30 ml Documented By: GM Sodium Chloride (Ns) 1,000 mls @ 999 mls/hr IV .Q1H1M ONE Stop: 01/07/25 17:00 Last Admin: 01/07/25 16:29 Dose: 999 mls/hr Documented By: GM Sodium Chloride (Ns) 1,000 mls @ 999 mls/hr IV .Q1H1M ONE Stop: 01/07/25 17:01 Last Admin: 01/07/25 16:29 Dose: 999 mls/hr Documented By: GM Lidocaine HCl (Lidocaine Viscous 2% 15 Ml Udc) 15 ml PO X1 ONE Stop: 01/07/25 16:39 Last Admin: 01/07/25 16:45 Dose: 15 ml Documented By: GM Morphine Sulfate (Morphine Sulf Inj 10 Mg/Ml Vial) 5 mg IVP X1 ONE Stop: 01/07/25 16:00 Last Admin: 01/07/25 16:25 Dose: 5 mg Documented By: GM Ondansetron HCl (Ondansetron Odt 4 Mg Tabrap) 4 mg PO X1 ONE; Protocol Stop: 01/07/25 14:00 Last Admin: 01/07/25 14:41 Dose: 4 mg Documented By: KF Ondansetron HCl (Ondansetron Inj 2 Mg/Ml Inj 2 Ml) 4 mg IV X1 ONE Stop: 01/07/25 16:00 Last Admin: 01/07/25 17:02 Dose: Not Given Documented By: GM Non-Admin Reason: Patient Refused Pantoprazole Sodium (Pantoprazole Inj 40 Mg Vial) 40 mg IV X1 ONE Stop: 01/07/25 16:02 Last Admin: 01/07/25 16:26 Dose: 40 mg Documented By: GM Sucralfate (Sucralfate Susp 1 Gm/10 Ml Udc) 1 gm PO X1 ONE Stop: 01/07/25 16:39 Last Admin: 01/07/25 17:02 Dose: 1 gm Documented By: GM see above Consultations Consultation(s) initiated? (list below): No Diagnosis Differential diagnosis abdominal pain: abdominal pain, calculus of kidney, diverticulitis, pancreatitis and other (gallstones) Most likely diagnosis given after review of the tests above:: Epigastric abdominal pain Gastritis Admission Indicated Admission indicated?: not indicated Admission Request Was there a request for admission?: No Disposition Plan Disposition Plan: Discharge Discharge Attestation Discharge Attestation: The patient and all family members were given an opportunity to ask questions and understood the discharge instructions. Discharge instructions specifically effects, indications for sooner follow up or return to the emergency department, and the expected course of current diagnosis. Patient condition: Stable Discharge Plan Plan Patient Disposition: HOME (Self Care) Prescriptions/Referrals Prescriptions/Med Rec: New hydrocodone-acetaminophen 5-325 mg tablet 1 tab PO Q6H MDD 6 PRN (Reason: pain) Qty: 14 0RF lansoprazole 30 mg capsule,delayed release(DR/EC) 30 mg PO QDAY Qty: 30 0RF ondansetron 4 mg tablet,disintegrating 4 mg PO Q8H PRN (Reason: nausea and vomiting) Qty: 10 0RF No Action clopidogrel 75 mg tablet 75 mg PO QDAY simvastatin 20 mg tablet 20 mg PO QDAY albuterol sulfate 90 mcg/actuation HFA aerosol inhaler 2 puff INHALATION Q4H PRN (Reason: sob) metoprolol succinate 25 mg tablet extended release 24 hr 25 mg PO BID Patient Comments: TAKE 1 TABLET BY MOUTH ONCE AM; TAKE 1 TABLET BY MOUTH ONCE PM lisinopril 5 mg tablet 5 mg PO QDAY 30 Days Qty: 30 0RF Referrals: Aydee Wu FNP [Primary Care Provider] - In 1 week Problem List Clinical Impression: Epigastric abdominal pain, Gastritis Patient/Caregiver Discharge Instructions Education Materials: ED Gastritis (Adult) Print Language: Upper Sorbian Stand Alone Forms: Jane Award Info., Patient Portal Info Letter
[2025-01-07] MEDS: MORPHINE SULF INJ 10 MG/ML VIAL 5 MG IVP (16:25)
[2025-01-07] MEDS: PANTOPRAZOLE INJ 40 MG VIAL IV (16:26)
[2025-01-07] MEDS: SODIUM CHLORIDE 0.9% 1000 ML 1,000 ML 999 ML IV ×2 (16:29)
[2025-01-07] MEDS: LIDOCAINE VISCOUS 2% 15 ML UDC PO (16:45)
[2025-01-07] MEDS: MG HYD/AL HYD/SIME (Maalox Reg) SUSP 30 ML UDC PO (16:45)
[2025-01-07 17:00] VITALS: BP 149/102; PULSE 78; RESP 18; TEMP 36.7; O2SAT 99
[2025-01-07] MEDS: SUCRALFATE SUSP 1 GM/10 ML UDC PO (17:02)
[2025-01-07 18:00] VITALS: BP 152/85; PULSE 88; RESP 16; TEMP 36.8; O2SAT 98
== END 2025-01-07 18:11 | disposition home or self-care (01) ==
PROVIDERS: Nurse Practitioner Family; Emergency Provider Emergency Medicine; PCP Nurse Practitioner Family
DX: K29.70 Gastritis, unspecified, without bleeding (principal); I10 Essential (primary) hypertension; J44.9 Chronic obstructive pulmonary disease, unspecified; K70.30 Alcoholic cirrhosis of liver without ascites; E78.5 Hyperlipidemia, unspecified; Z95.5 Presence of coronary angioplasty implant and graft
CPT/HCPCS: 36415; 80053; 81001; 83690; 85025; 96374; 99284; J2270; J2470; J3490; J7030; Q0162; A9270

== ENCOUNTER 2025-04-21 06:45 | Inpatient (IN) | payer MEDICARE, SELFPAY ==
[2025-04-21] VITALS (24 sets, daily range): BP systolic 96–152; BP diastolic 59–101; PULSE 86–113; RESP 16–98; TEMP 36.4–37.2; O2SAT 96–100; BMI 18.9; BMI 19.5
[2025-04-21 07:17] LABS: Basophils # (Auto) 0.1 Thou/mm3 (0.0-0.2); Basophils % (Auto) 1 % (0-2.5); Eosinophils # (Auto) 0.1 Thou/mm3 (0.0-0.5); Eosinophils % (Auto) 1 % (0-10); Hematocrit 45.7 % (41.0-53.0); Hemoglobin 15.9 g/dL (13.5-16.0); Immature Granulocytes % (Auto) 1 % (0-0); Immature Granulocytes Auto 0.11 Thou/mm3 (0.00-0.00); Lymphocytes % (Auto) 9 % (10-50); Mean Corpuscular HGB Conc 34.8 g/dl (31.0-37.0); Mean Corpuscular Hemoglobin 27.6 pg (25.0-35.0); Mean Corpuscular Volume 79 fL (80-100); Monocytes # (Auto) 1.1 Thou/mm3 (0.0-0.8); Monocytes % (Auto) 9 % (0-12); Neutrophils # (Auto) 9.6 Thou/mm3 (1.8-7.7); Neutrophils % (Auto) 80 % (37-80); Nucleated Red Blood Cell % 0 /100 WBC (0); Platelet Count 447 Thou/mm3 (140-440); Red Blood Count 5.77 Miln/mm3 (4.50-5.90); White Blood Count 12.1 Thou/mm3 (3.8-10.6)
--- NOTE | 2025-04-21 07:44 | PC.NURSE ---
PATIENT IN ROOM WITH COMPLAINT OF ABDOMINAL PAIN AND STATES HE HAS HAD PAIN AND DARK STOOLS FOR 2 MONTHS. PATIENT STATES THAT HE HAS HAD ISSUES WITH CONSTIPATION IN THE PAST AND DOES TAKE LAXATIVES TO HELP WITH BOWEL MOVEMENTS. PATIENT DENIES GOING TO REGULAR DOCTOR RECENTLY AND HAS HAD NO MEDICAL TREATMENT IN THE PAST YEAR. PATIENT PLACED ON MONITOR, IV ESTABLISHED. CALL LIGHT WITHIN REACH.
[2025-04-21 07:49] LABS: Alanine Aminotransferase 8 U/L (10-49); Albumin, Serum 5.1 gm/dL (3.4-4.8); Albumin/Globulin Ratio 1.4 (1.2-2.2); Alkaline Phosphatase 125 U/L (46-116); Anion Gap 20 (7-16); Aspartate Amino Transferase < 8 U/L (0-34); BUN/Creatinine Ratio 18 Ratio (12-20); Bilirubin,Total 0.3 mg/dL (0.3-1.2); Blood Urea Nitrogen 30 mg/dL (9-23); Calcium 10.7 mg/dL (8.3-10.6); Calcium (Corrected) 10.7 mg/dL (8.5-10.1); Chloride 92 mMol/L (98-107); Creatinine (Component) 1.7 mg/dL (0.6-1.3); Estimated Creatinine Clearance 30.9 mL/min (>60); Globulin 3.6 gm/dL (2.3-3.5); Lipase 279 U/L (12-53); Osmolality,Calculated 286 (275-295); Sodium 127 mMol/L (136-145); Total Protein 8.7 gm/dL (5.7-8.2); eGFR 43 See Note
[2025-04-21 07:52] LABS: Carbon Dioxide 14.8 mMol/L (20.0-31.0); Glucose 552 mg/dL (74-106)
--- NOTE | 2025-04-21 07:57 | PC.NURSE ---
LAB CALLED WITH CRITICAL VALUE OF GLUCOSE 552, CO2 14.8. DR. FRYE MADE AWARE.
[2025-04-21 08:24] LABS: Partial Thromboplastin Time 29.9 Seconds (22.0-36.0); Prothrombin Time 10.9 Seconds (9.0-12.2)
[2025-04-21 08:26] LABS: Beta Hydroxybutyrate 5.8 mmol/L (<0.6)
[2025-04-21] MEDS: SODIUM CHLORIDE 0.9% 1000 ML 1,000 ML 999 ML IV ×2 (08:36→10:47)
[2025-04-21] MEDS: PANTOPRAZOLE INJ 40 MG VIAL IVP ×2 (08:37→20:30)
--- NOTE | 2025-04-21 08:43 | PD.EDABDPN ---
ED Abdominal Pain RME/HPI General Chief Complaint: GI Bleed Stated complaint: ABD PAIN BLACK STOOL Time seen by provider: 04/21/25 07:41 Arrival date/time: 04/21/25 06:45 RME / HPI RME / HPI narrative: The patient is a 70-year-old male with past medical history significant for COPD, hypertension, hyperlipidemia, CAD s/p 3 stents, alcohol-related liver cirrhosis and recurrent pancreatitis presented to ED on 04/21/2025 with chief complaint of abdominal pain for past 3 to 4 weeks. His abdominal pain was associated with black tarry stools for about past 3 weeks. He reported losing about 20 pounds of his weight in last 1 month. The patient was never diagnosed with diabetes mellitus type 1 or type II. He admitted mild chronic SOB, and constipation but denied any headache, lightheadedness, chest pain, fever or chills, any changes in bladder habit or leg swelling. Related Data Home Medications ?Medication ?Instructions ?Recorded ?Confirmed albuterol sulfate 90 mcg/actuation 2 puff inhalation Q4H PRN sob 07/13/22 04/21/25 aerosol inhaler clopidogrel 75 mg tablet 75 mg PO QDAY 07/13/22 04/21/25 simvastatin 20 mg tablet 20 mg PO QDAY 07/13/22 04/21/25 metoprolol succinate 25 mg 25 mg PO BID 08/26/23 12/28/24 tablet,extended release 24 hr metoprolol tartrate 25 mg tablet 25 mg PO Q12H 04/21/25 04/21/25 Previous Rx's ?Medication ?Instructions ?Recorded lisinopril 5 mg tablet 5 mg PO QDAY 30 days #30 tabs 03/02/23 hydrocodone 5 mg-acetaminophen 325 1 tab PO Q6H PRN pain #14 tabs 01/07/25 mg tablet lansoprazole 30 mg capsule,delayed 30 mg PO QDAY #30 caps 01/07/25 release Allergies Allergy/AdvReac Type Severity Reaction Status Date / Time No Known Allergies Allergy Verified 04/21/25 06:58 Review of Systems Review of Systems Systems Reviewed: All systems reviewed, normal except as documented (Above) Past Medical History Past Medical History CARDIAC: Positive Cardiac Disorders, Myocardial Infarction (3 cardiac stents), Hypercholesterolemia and Hypertension RESPIRATORY: Positive Chronic Obstructive Pulmonary Disease (COPD), Asthma and Bronchitis GASTROINTESTINAL: Positive Cirrhosis and Gall Bladder Disease (hx gallstones) GENITOURINARY: Positive Kidney Stones Family History FAMILY HISTORY: Positive Family Cardiac Disorders Surgical History SURGICAL: Positive Coronary Stent and Abdominal Surgery Social History SMOKING STATUS: Never smoker SECOND HAND EXPOSURE: Yes SUBSTANCE USE: marijuana ALCOHOL: Never ED Exam Narrative Physical exam: General: Frail, ill looking, cooperative gentleman, no acute distress, Alert and Oriented x 3 HEENT: Dry mucous membranes, oropharynx clear Neck: Supple, No masses, No JVD CVS: Tachycardic, No murmurs, rubs or gallops Lungs: Bilateral wheezing throughout the lung field, no rhonchi or crackles Abd: Soft, epigastric tenderness/ND, +BS, no organomegaly Ext: No edema, warm and well perfused Skin: No rash Psych: Appropriate mood and affect Course Quality Measures none Orders Category Date Time Status Pipe Fitter Helper STAT Care 04/21/25 07:50 Active Continuous Pulse Oximetry STAT Care 04/21/25 07:51 Completed EKG (ED ONLY) *Do not use* NOW Care 04/21/25 09:55 Completed Insert IV NOW Care 04/21/25 06:51 Active Insert IV STAT Care 04/21/25 07:51 Active Intake and Output Routine Care 04/21/25 07:51 Ordered Occult Blood,Stool (Nursing) NOW Care 04/21/25 07:57 Active Orthostatic Vitals NOW Care 04/21/25 07:50 Active EKG (ED Only) Stat Exams 04/21/25 09:55 Draft Arterial Blood Gas Stat Lab 04/21/25 08:52 Completed BHB [Beta Hydroxybutyrate] Stat Lab 04/21/25 08:08 Completed CBC Stat Lab 04/21/25 07:05 Completed Comprehensive Metabolic Panel Stat Lab 04/21/25 07:05 Completed Lactic Acid [Lactate (Lactic Acid)] Stat Lab 04/21/25 11:28 Completed Lipase Stat Lab 04/21/25 07:05 Completed Magnesium Stat Lab 04/21/25 08:08 Completed Partial Thromboplastin Time Stat Lab 04/21/25 07:05 Completed Prothrombin Time with INR Stat Lab 04/21/25 07:05 Completed Albuterol/Ipratr Rt Meme [Duoneb Rt Meme] Med 04/21/25 09:14 Discontinued 3 ml INH X1 ONE HYDROmorphone INJ [Dilaudid Inj] Med 04/21/25 08:47 Discontinued 0.5 mg IVP X1 ONE Insulin Regular Med 04/21/25 09:30 Discontinued 5.5 unit IV X1 ONE Pantoprazole Inj [Protonix Inj] Med 04/21/25 07:55 Discontinued 40 mg IVP X1 ONE Sodium Chloride 0.9% 1000 ml [Ns] 1,000 ml Med 04/21/25 08:08 Discontinued IV 999 mls/hr Sodium Chloride 0.9% 1000 ml [Ns] 1,000 ml Med 04/21/25 09:51 Discontinued IV 999 mls/hr Sodium Chloride 0.9% 500 ml [Ns] 500 ml Med 04/21/25 07:50 Discontinued IV 500 mls/hr Oxygen Delivery STAT RT 04/21/25 07:51 Active Vital Signs Vital signs: Vital Signs Temperature 97.7 F 04/21/25 07:06 Pulse Rate 113 H 04/21/25 07:06 Respiratory Rate 19 04/21/25 07:06 Blood Pressure 121/76 04/21/25 07:06 Pulse Oximetry (%) 99 04/21/25 07:06 Oxygen Delivery Method Room Air 04/21/25 07:06 Abdominal Pain MDM MDM Narrative MDM Narrative:: The patient is a 70-year-old male with past medical history significant for COPD, hypertension, hyperlipidemia, CAD s/p 3 stents, alcohol-related liver cirrhosis and recurrent pancreatitis presented to ED on 04/21/2025 with chief complaint of abdominal pain for past 3 to 4 weeks. His abdominal pain was associated with black tarry stools for about past 3 weeks. He reported losing about 20 pounds of his weight in last 1 month. The patient was never diagnosed with diabetes mellitus type 1 or type II. He admitted mild chronic SOB, and constipation but denied any headache, lightheadedness, chest pain, fever or chills, any changes in bladder habit or leg swelling. His vitals revealed blood pressure 121/76, pulse 113, RR 19, temp 97.7, saturating 99% on room air. Labs revealed white count of 12.1, hemoglobin 15.9, platelet 447, coag panel WNL, ABG revealed pH of 7.33, [id number], bicarb 10, chemistry panel revealed sodium 127, potassium 5.0, chloride 92, bicarb 14.8, anion gap 20, BUN 30, creatinine 1.7, GFR 43, blood sugar 552, corrected calcium 10.7, magnesium 1.8, albumin 5.1, lipase 279, and BHB 5.8. The patient was found to have diabetes ketoacidosis, pancreatitis and GI bleed. The patient received 1 L of IV normal saline bolus, pantoprazole 40 Mg IV x 1, Dilaudid 0.5 Mg IV x 1 DuoNeb INH x 1. The patient was planned to be admitted to ICU. Patient data External records reviewed:: [facility] previous records Clinical information provided by:: patient Social determinants that could affect healthcare access:: none Patient has the following chronic illnesses:: See above How is presenting disease/condition affected by chronic disease/condition?: exacerbated by Evaluation data The following diagnostics were reviewed and interpreted by me:: lab results and EKG tracing(s) Lab and/or radiology exams considered but not ordered:: None Interpretation Summary: See above Medications / Prescriptions Medications or Prescriptions considered but not ordered:: None Medication administrations:: Medication Administration History Acetaminophen (Acetaminophen 325 Mg Tablet) 650 mg PO Q6H PRN PRN Reason: Mild Pain 1-3 or fever >100.3 Stop: 05/21/25 11:07 Dextrose (Dextrose 50%-Water Inj 50 Ml Syringe) 25 ml IV PRNMRX1 PRN PRN Reason: Blood Sugar - Low Potassium Chloride (Kcl Ivpb) 10 meq in 100 mls @ 100 mls/hr IV .Q1H PRN PRN Reason: IF POTASSIUM LESS THAN 3.3 Stop: 05/21/25 11:12 Magnesium Sulfate (Magnesium Sulfate Ivpb) 2 gm in 50 mls @ 25 mls/hr IV .Q2H PRN PRN Reason: PER DKA PROTOCOL Stop: 05/21/25 11:12 Insulin Human Regular 100 unit (/ IV Miscellaneous Supplies) 100 mls @ 5.489 mls/hr IV .[id number] PRN; Protocol PRN Reason: PER PROTOCOL Stop: 05/21/25 11:12 Last Admin: 04/21/25 12:23 Dose: 0.1 unit/kg/hr, 5.489 mls/hr Documented By: NANNETTE Co-signed By: NATI Dextrose/Lactated Ringer's (D5-Lr) 1,000 mls @ 250 mls/hr IV .Q4H PRN PRN Reason: PER PROTOCOL Stop: 05/21/25 11:12 Lactated Ringer's (Lactated Ringers) 1,000 mls @ 250 mls/hr IV .Q4H PRN PRN Reason: PER PROTOCOL Stop: 04/22/25 11:12 Potassium Chloride 20 meq/ (Lactated Ringer's) 1,010 mls @ 250 mls/hr IV .Q4H3M PRN PRN Reason: K LEVEL 3.3 TO 5.3mM/L Stop: 05/21/25 11:12 Potassium Chloride 40 meq/ (Lactated Ringer's) 1,020 mls @ 250 mls/hr IV .Q4H5M PRN PRN Reason: K LEVEL < 3.3 mM/L Stop: 05/21/25 11:12 Potassium Chloride 40 meq/ (Dextrose/Lactated Ringer's) 1,020 mls @ 250 mls/hr IV .Q4H5M PRN PRN Reason: K LEVEL < 3.3mM/L Stop: 05/21/25 11:12 Potassium Chloride 20 meq/ (Dextrose/Lactated Ringer's) 1,010 mls @ 250 mls/hr IV .Q4H3M PRN PRN Reason: K LEVEL 3.3 TO 5.3 mM/L Stop: 05/21/25 11:12 Potassium Chloride (Kcl Ivpb) 10 meq in 100 mls @ 50 mls/hr IV PRN PRN PRN Reason: K LEVEL 3.3 to 5.3 & BG > 200 Stop: 05/21/25 11:12 Potassium Phosphate (Pot Phos 15 Mmol In Ns 250 Ml) 15 mmol in 250 mls @ 62.5 mls/hr IV PRN PRN PRN Reason: Phosphate <= 1mg/dL Stop: 05/21/25 11:12 Sodium Phosphate 15 mmol/ (Sodium Chloride) 255 mls @ 62.5 mls/hr IV .Q4H5M PRN PRN Reason: Phosphate <= 1mg/dL and K> than 5.3 Stop: 05/21/25 11:12 Morphine Sulfate (Morphine Sulf Inj 10 Mg/Ml Vial) 1 mg IVP Q2H PRN PRN Reason: PAIN SCALE 4-10(Mod-Sev Stop: 04/26/25 11:07 Ondansetron HCl (Ondansetron Inj 2 Mg/Ml Inj 2 Ml) 4 mg IVP Q6H PRN; Protocol PRN Reason: NAUSEA OR VOMITING Stop: 05/21/25 11:07 Pantoprazole Sodium (Pantoprazole Inj 40 Mg Vial) 40 mg IVP Q12HR JUANITA Stop: 05/21/25 20:59 Sennosides (Senna Tablet) 1 tab PO QDAY PRN; Protocol PRN Reason: constipation Stop: 05/21/25 11:07 Sodium Bicarbonate (Sodium Bicarb Inj 8.4% Syr 50 Ml Syringe) 50 ml IV PRN PRN PRN Reason: For ph <= to 7.0 Stop: 05/21/25 11:12 Discontinued Medications Albuterol/Ipratropium (Albuterol/Ipratropium (Duoneb) Rt Meme 3 Ml Nebu) 3 ml INH X1 ONE Stop: 04/21/25 09:15 Last Admin: 04/21/25 09:48 Dose: 3 ml Documented By: RAJWINDER Hydromorphone HCl (Hydromorphone Inj 2 Mg/Ml Vial) 0.5 mg IVP X1 ONE Stop: 04/21/25 08:48 Last Admin: 04/21/25 09:19 Dose: 0.5 mg Documented By: GERALDINE Sodium Chloride (Ns) 500 mls @ 500 mls/hr IV .Q1H ONE Stop: 04/21/25 08:49 Last Admin: 04/21/25 08:36 Dose: Not Given Documented By: GERALDINE Non-Admin Reason: Discontinued Sodium Chloride (Ns) 1,000 mls @ 999 mls/hr IV .Q1H1M ONE Stop: 04/21/25 09:08 Last Infusion: 04/21/25 09:40 Dose: Infused Documented By: Admin: 04/21/25 08:36 Dose: 999 mls/hr Documented By: GERALDINE Sodium Chloride (Ns) 1,000 mls @ 999 mls/hr IV .Q1H1M ONE Stop: 04/21/25 10:51 Last Admin: 04/21/25 10:47 Dose: 999 mls/hr Documented By: VASQUEZ Insulin Human Regular (Insulin Hum Regular 1 Unit/0.01 Ml (Per Unit)) 5.5 unit 0.1 unit/kg (5.5 unit) IV X1 ONE Stop: 04/21/25 09:31 Last Admin: 04/21/25 09:48 Dose: 5.5 unit Documented By: GERALDINE Co-signed By: AYE Pantoprazole Sodium (Pantoprazole Inj 40 Mg Vial) 40 mg IVP X1 ONE Stop: 04/21/25 07:56 Last Admin: 04/21/25 08:37 Dose: 40 mg Documented By: GERALDINE See above Consultations Consultation(s) initiated? (list below): Yes Consultation #1 (Physician, Specialty, Details): Ground Control Approach Technician Dr. Lele MD Time: 10:50 Diagnosis Differential diagnosis abdominal pain: abdominal pain, constipation and pancreatitis Most likely diagnosis given after review of the tests above:: DKA with pancreatitis Admission Indicated Admission indicated?: indicated Admission Request Was there a request for admission?: Yes Admission Attestation Admission request attestation: Discussed case with car ferry captain Dr. Lele MD from ICU service regarding admission. Discussed patients ED course, exam findings, labs, and radiology results. The car ferry captain accept the patient for admission. Disposition Plan Disposition Plan: Admit Discharge Plan Plan Patient Disposition: Admit Acute Care w/in Hospital Problem List Clinical Impression: DKA, type 2, Acute dehydration, Acute pancreatitis
[2025-04-21 08:46] LABS: Magnesium 1.8 mg/dL (1.6-2.6)
[2025-04-21 08:57] LABS: Base Excess -14 (-3-3); HCO3 10 mEq/L (20-26); Inspired Oxygen, FIO2 21 %; O2 Saturation 98 % (91-98); PCO2 19 mmHg (32.0-48.0); PO2 96 mmHg (83-108); pH, Arterial 7.33 (7.35-7.45)
[2025-04-21 08:58] LABS: Allen Test Not Performed; Puncture Site Right Radial
[2025-04-21] MEDS: HYDROmorphone INJ 2 MG/ML VIAL 0.5 MG IVP (09:19)
[2025-04-21] MEDS: INSULIN HUM REGULAR 1 UNIT/0.01 ML (PER UNIT) 5.5 UNIT IV (09:48)
[2025-04-21] MEDS: ALBUTEROL/IPRATROPIUM (Duoneb) RT SOL 3 ML NEBU INH (09:48)
--- NOTE | 2025-04-21 09:55 | EKG_ITS ---
[facility] Test Date: 2025-04-21 Pat Name: VICK DUARTE Department: Room: - Gender: Male Aml Analyst: : 1955 Requested By: Curtis Gupta Order Number: [id number] Reading MD: Curtis Gupta Measurements Intervals Davis Rate: 92 P: 56 IA: 152 QRS: 61 QRSD: 77 T: -5 QT: 337 QTc: 418 Interpretive Statements SINUS RHYTHM NONSPECIFIC T-WAVE ABNORMALITY Compared to ECG 12/28/2024 13:45:29 Sinus tachycardia no longer present Possible ischemia no longer present T-wave abnormality still present /store/S0/[id number]/[id number].pdf
--- NOTE | 2025-04-21 11:34 | PD.RESHP ---
Documentation for date of: 04/21/25 HPI History of Present Illness Chief complaint: Abdominal pain History of present illness: Patient is a 70-year-old male with past medical history hypertension, hyperlipidemia, CAD status post 4 stents most recently in 2019 at [facility] who is coming with chief complaint of abdominal tenderness and dark stools. Patient states that for the past 3 weeks he has had abdominal tenderness weakness and he has had dark stools. Patient states that he usually suffers of constipation and he has a bowel movement every 3 days so he started taking MiraLAX an Pepto-Bismol to have a bowel movement which initiates as a hard stool and then turns into explosive dark stools. Patient denies any nausea or vomiting and he was taking ibuprofen for his pain before switching to Tylenol after he found out that ibuprofen was bad for his gut. Patient does state he has lost about 30 pounds in the last month and he has had decreased appetite and only been able to take protein shakes. Last bowel movement was 2 days ago and he came in today because he was feeling more weak and unable to keep his eyes open. Patient has no previous history of diabetes and does not have any recent changes in medication. [place] He states that he has also had recurrent episodes of pancreatitis in the past that he has been admitted for here at [facility]. He had an EGD in 2021 which revealed moderate portal gastropathy. Past medical history: As above Medications: Lisinopril, simvastatin, clopidogrel, metoprolol and rescue inhaler Past surgical history: Tonsillectomy, appendectomy, rotator cuff repair, testicular torsion Past social history: Stopped drinking 6 months ago due to recurrent episodes of pancreatitis, smokes cigarettes half a pack daily for 55 to 60 years, occasionally smokes marijuana In the ED patient vitals showed BP 121/76, pulse 113, RR 19, temperature 97.7, O2 sat 99 on room air CBC was significant for a white count of 12.1 and a platelet of 447 ABG showed a pH of 7.33, CO2 of 19, O2 of 96 Renal function panel showed a sodium of 127 potassium of 5 chloride of 92 bicarb of 14.8, BUN 30 and creatinine 1.7 with a glucose of 552 Lactate was 1.6, anion gap was 28, beta hydroxybutyrate was 5.8 and a lipase of 279 EKG showed sinus rhythm UA is pending as well as U tox Patient will be admitted to the ICU for further management of his DKA Review of Systems Review of Systems Systems Reviewed: All systems reviewed, normal except as documented Exam Vital Signs Temp Pulse Resp BP Pulse Ox O2 Del Method 97.7 F 93 18 121/79 98 Room Air 04/21/25 07:06 04/21/25 09:49 04/21/25 09:49 04/21/25 09:21 04/21/25 09:49 04/21/25 09:21 Narrative Exam Constitutional: Cachectic male no acute distress Head: Normocephalic/Atraumatic Eyes: PERRL , no conjunctival injection , symmetrical lids. ENMT: Dry mucous membranes with black tooth on tongue and several teeth removals. No trauma or injury. Neck: Supple to palpation, No JVD CVS: RRR, S1 and S2 present, no murmurs, rubs or gallops . RESP: CTAB, no SOB, no rales, rhonchi or wheezing. No respiratory Distress GI: Normal BS, Nontender/Nondistended. MSK: Full range of motion, No trauma or deformities or masses. Skin: Warm to touch, Dry. No rashes or lesions. No hematomas Neuro: first assistant manager II-XII grossly intact. Sensation grossly intact. Psych: (AAO) x3 . Appropriate mood and affect. Results: Labs 04/22/25 04:52 04/22/25 04:52 Labs: Short CBC 04/21/25 Range/Units 07:05 WBC 12.1 H (3.8-10.6) Thou/mm3 Hgb 15.9 (13.5-16.0) g/dL Hct 45.7 (41.0-53.0) % Plt Count 447 H (140-440) Thou/mm3 BMP 04/21/25 07:05 Sodium 127 L Potassium 5.0 Chloride 92 L Carbon Dioxide 14.8 L* BUN 30 H Creatinine 1.7 H Glucose 552 H* Calcium 10.7 H Liver Function 04/21/25 Range/Units 07:05 Total Bilirubin 0.3 (0.3-1.2) mg/dL AST < 8 (0-34) U/L ALT 8 L (10-49) U/L Alkaline Phosphatase 125 H (46-116) U/L Albumin 5.1 H (3.4-4.8) gm/dL ABG Interpretation ABG results: 04/21/25 08:52 ABG pH 7.33 L ABG pCO2 19 L* ABG pO2 96 ABG HCO3 10 L ABG O2 Saturation 98 ABG Base Excess -14 L Quality Measures Quality Measures none Advance care planning discussed with:: patient Medications Home Medications and Allergies Home Medications ?Medication ?Instructions ?Recorded ?Confirmed ?Type albuterol sulfate 90 mcg/actuation 2 puff inhalation Q4H PRN sob 07/13/22 04/21/25 History aerosol inhaler clopidogrel 75 mg tablet 75 mg PO QDAY 07/13/22 04/21/25 History simvastatin 20 mg tablet 20 mg PO QDAY 07/13/22 04/21/25 History metoprolol succinate 25 mg 25 mg PO BID 08/26/23 12/28/24 History tablet,extended release 24 hr metoprolol tartrate 25 mg tablet 25 mg PO Q12H 04/21/25 04/21/25 History Allergies Allergy/AdvReac Type Severity Reaction Status Date / Time No Known Allergies Allergy Verified 04/21/25 06:58 Visit Medications Acetaminophen (Acetaminophen 325 Mg Tablet) 650 mg PO Q6H PRN PRN Reason: Mild Pain 1-3 or fever >100.3 Stop: 05/21/25 11:07 Dextrose (Dextrose 50%-Water Inj 50 Ml Syringe) 25 ml IV [id number] PRN PRN Reason: Blood Sugar - Low Potassium Chloride (Kcl Ivpb) 10 meq in 100 mls @ 100 mls/hr IV .Q1H PRN PRN Reason: IF POTASSIUM LESS THAN 3.3 Stop: 05/21/25 11:12 Magnesium Sulfate (Magnesium Sulfate Ivpb) 2 gm in 50 mls @ 25 mls/hr IV .Q2H PRN PRN Reason: PER DKA PROTOCOL Stop: 05/21/25 11:12 Insulin Human Regular 100 unit (/ IV Miscellaneous Supplies) 100 mls @ 5.489 mls/hr IV .[id number] PRN; Protocol PRN Reason: PER PROTOCOL Stop: 05/21/25 11:12 Dextrose/Lactated Ringer's (D5-Lr) 1,000 mls @ 250 mls/hr IV .Q4H PRN PRN Reason: PER PROTOCOL Stop: 05/21/25 11:12 Lactated Ringer's (Lactated Ringers) 1,000 mls @ 250 mls/hr IV .Q4H PRN PRN Reason: PER PROTOCOL Stop: 04/22/25 11:12 Potassium Chloride 20 meq/ (Lactated Ringer's) 1,010 mls @ 250 mls/hr IV .Q4H3M PRN PRN Reason: K LEVEL 3.3 TO 5.3mM/L Stop: 05/21/25 11:12 Potassium Chloride 40 meq/ (Lactated Ringer's) 1,020 mls @ 250 mls/hr IV .Q4H5M PRN PRN Reason: K LEVEL < 3.3 mM/L Stop: 05/21/25 11:12 Potassium Chloride 40 meq/ (Dextrose/Lactated Ringer's) 1,020 mls @ 250 mls/hr IV .Q4H5M PRN PRN Reason: K LEVEL < 3.3mM/L Stop: 05/21/25 11:12 Potassium Chloride 20 meq/ (Dextrose/Lactated Ringer's) 1,010 mls @ 250 mls/hr IV .Q4H3M PRN PRN Reason: K LEVEL 3.3 TO 5.3 mM/L Stop: 05/21/25 11:12 Potassium Chloride (Kcl Ivpb) 10 meq in 100 mls @ 50 mls/hr IV PRN PRN PRN Reason: K LEVEL 3.3 to 5.3 & BG > 200 Stop: 05/21/25 11:12 Potassium Phosphate (Pot Phos 15 Mmol In Ns 250 Ml) 15 mmol in 250 mls @ 62.5 mls/hr IV PRN PRN PRN Reason: Phosphate <= 1mg/dL Stop: 05/21/25 11:12 Sodium Phosphate 15 mmol/ (Sodium Chloride) 255 mls @ 62.5 mls/hr IV .Q4H5M PRN PRN Reason: Phosphate <= 1mg/dL and K> than 5.3 Stop: 05/21/25 11:12 Morphine Sulfate (Morphine Sulf Inj 10 Mg/Ml Vial) 1 mg IVP Q2H PRN PRN Reason: PAIN SCALE 4-10(Mod-Sev Stop: 04/26/25 11:07 Ondansetron HCl (Ondansetron Inj 2 Mg/Ml Inj 2 Ml) 4 mg IVP Q6H PRN; Protocol PRN Reason: NAUSEA OR VOMITING Stop: 05/21/25 11:07 Pantoprazole Sodium (Pantoprazole Inj 40 Mg Vial) 40 mg IVP Q12HR JUANITA Stop: 05/21/25 20:59 Sennosides (Senna Tablet) 1 tab PO QDAY PRN; Protocol PRN Reason: constipation Stop: 05/21/25 11:07 Sodium Bicarbonate (Sodium Bicarb Inj 8.4% Syr 50 Ml Syringe) 50 ml IV PRN PRN PRN Reason: For ph <= to 7.0 Stop: 05/21/25 11:12 Discontinued Medications Albuterol/Ipratropium (Albuterol/Ipratropium (Duoneb) Rt Meme 3 Ml Nebu) 3 ml INH X1 ONE Stop: 04/21/25 09:15 Last Admin: 04/21/25 09:48 Dose: 3 ml Hydromorphone HCl (Hydromorphone Inj 2 Mg/Ml Vial) 0.5 mg IVP X1 ONE Stop: 04/21/25 08:48 Last Admin: 04/21/25 09:19 Dose: 0.5 mg Sodium Chloride (Ns) 500 mls @ 500 mls/hr IV .Q1H ONE Stop: 04/21/25 08:49 Last Admin: 04/21/25 08:36 Dose: Not Given Sodium Chloride (Ns) 1,000 mls @ 999 mls/hr IV .Q1H1M ONE Stop: 04/21/25 09:08 Last Infusion: 04/21/25 09:40 Dose: Infused Sodium Chloride (Ns) 1,000 mls @ 999 mls/hr IV .Q1H1M ONE Stop: 04/21/25 10:51 Last Admin: 04/21/25 10:47 Dose: 999 mls/hr Insulin Human Regular (Insulin Hum Regular 1 Unit/0.01 Ml (Per Unit)) 5.5 unit 0.1 unit/kg (5.5 unit) IV X1 ONE Stop: 04/21/25 09:31 Last Admin: 04/21/25 09:48 Dose: 5.5 unit Pantoprazole Sodium (Pantoprazole Inj 40 Mg Vial) 40 mg IVP X1 ONE Stop: 04/21/25 07:56 Last Admin: 04/21/25 08:37 Dose: 40 mg Assessment & Plan Plan 70-year-old male with past medical history hypertension, hyperlipidemia, CAD status post 4 stents most recently in 2019 at [facility] admitted to the ICU for DKA Neuro Stable CVS History of CAD First stent placed 2011 and latest was 3 stent placed in 2019 at [facility] Been taking clopidogrel, metoprolol and simvastatin since Denies any chest pain or shortness of breath EKG showed sinus rhythm Will continue to monitor Resp Stable 35-vabl-epzf history (half a pack for about 55 to 60 years) Patient is currently stable saturating 99 on room air Will continue rescue inhaler as needed Plan: Follow-up with x-ray DuoNebs as needed for wheezing or shortness of breath GI Black stools Patient has been complaining of epigastric pain and taking bismuth as well as MiraLAX to relieve his chronic constipation Patient likely has upper GI bleed as he has been taking NSAIDs for his abdominal pain and then switched to Tylenol Fecal occult blood is positive. Hemoglobin on presentation was 15.9 Patient had a colonoscopy over 10 years ago. Last EGD was in 2021 which showed portal gastropathy Plan: Protonix 40 mg IV twice daily N.p.o. Aggressive fluid resuscitation Will keep hemoglobin above 7 Follow-up H&H Anorexia Patient has a 30 pound weight loss in the last 30 days with decreased appetite There is concern for possible underlying malignancy Will follow-up with those CT chest abdomen pelvic with contrast to rule out any masses once patient's renal function improves History of cirrhosis History of recurrent pancreatitis Under the setting of chronic alcoholism Patient stopped drinking after his last admission for pancreatitis in November of this year Liver function seems stable as patient PT and INR within normal limits transaminases are normal as well as albumin Patient has had recurrent pancreatitis secondary to alcohol abuse Patient's lipase was 279 Renal EDUARDO Likely prerenal in the setting of severe dehydration Patient has not been able to tolerate any intake properly since the last month and has only been taking protein shakes Patient's baseline creatinine 0.8 and came in with a creatinine of 1.7 Will resuscitate with aggressive fluid resuscitation Metabolic acidosis In the setting of DKA Patient's anion gap is 20 on presentation Treat underlying DKA Endocrine New onset diabetes mellitus New onset DKA Patient presented with anion gap of 20 abdominal pain generalized weakness pH was 7.33 on admission with a pCO2 of 19 Patient's hemoglobin is 11.9 and beta-hydroxybutyrate was 5.8 with UA showing 4+ glucose and 3+ ketones N.p.o., will continue drip until anion gap is closed twice Will refer to registered dietitian for lifestyle changes and diet modification ID/Skin Stable Patient denies any fevers, chills, coughing, or diarrhea Hematology Leukocytosis Likely reactive in the setting of DKA Will hold off on chemical phylaxis in the setting of GI bleed Hospital Maintenance: FEN: N.p.o., lactated Ringer's and insulin drip DVT PPx: SCDs GI PPx:Protonix 40 mg IV twice daily IV lines: Peripheral IVs Bhat: None Code Status: Full code Dispo: Patient will remain in the ICU for further management of his diabetic ketoacidosis I discussed patient's care with precision machining instructor, Dr Lele Dotson MD, PGY3 Attending Provider Attestation/Addendum pt seen and examined with resident, agree with above. in brief this is a 70yo M who presents for weight loss, black stools and fatigue who is found to have DKA with new onset DM in the ER. He is very dry in appearance. He was given several lts of IVF in the ER and started on an insulin gtt. There is no abd pain on exam with deep palpation, lungs are clear and HRRR. moves all extremities with no focal deficits. Once his DKA is resolved will start work up for possible underlying malignancy given his 20-30lb weight loss in 1 month. Given report of black stools will need GI workup as well. case d/w ICU team labs, imaging, records reviewed ~70ccmin required for eval , exam, review, intervention, discussion and formulation of POC for this critically ill pt with DKA and chronic pancreatitis at high risk for further and ongoing decompensation
[2025-04-21 11:41] LABS: Lactate (Lactic Acid) 1.6 mMol/L (0.4-2.0)
[2025-04-21 11:59] LABS: Base Excess, Venous -10 (-3-3); O2 Saturation, Venous 41 % (96-97); PCO2, Venous 37 mmHg (36-56); PO2, Venous 26 mmHg (15-58); pH, Venous 7.26 (7.33-7.66)
[2025-04-21 12:02] LABS: Glucose Estimated Average 295 mg/dL (80-131); Hemoglobin A1C 11.9 % Hgb (4.8-6.0)
[2025-04-21 12:20] LABS: Albumin, Serum 4.7 gm/dL (3.4-4.8); Anion Gap 17 (7-16); BUN/Creatinine Ratio 19 Ratio (12-20); Blood Urea Nitrogen 27 mg/dL (9-23); Calcium 10.2 mg/dL (8.3-10.6); Calcium (Corrected) 10.2 mg/dL (8.5-10.1); Carbon Dioxide 15.6 mMol/L (20.0-31.0); Chloride 99 mMol/L (98-107); Creatinine (Component) 1.4 mg/dL (0.6-1.3); Estimated Creatinine Clearance 37.6 mL/min (>60); Glucose 305 mg/dL (74-106); Magnesium 1.9 mg/dL (1.6-2.6); Osmolality,Calculated 280 (275-295); Sodium 132 mMol/L (136-145); eGFR 54 See Note
[2025-04-21] MEDS: INSULIN REG 100 UNITS/100 ML 100 UNIT in PRE-MIXED 1 BAG 5.489 UNIT IV (12:23)
[2025-04-21 12:48] LABS: Collection Type, Urine Catheter; Squamous Epithelial Cell,Urine 0 /hpf (0-5)
[2025-04-21 13:15] LABS: Bilirubin,Urine Negative (Negative); Blood,Urine Negative (Negative); Clarity,Urine Clear (Clear/Hazy); Color,Urine Lt-Yellow (Lt Yel-Yel); Glucose, Urine 4+ (Negative); Hyaline Casts,Urine < 1 /hpf (0-1); Ketones,Urine 3+ (Negative); Leukocyte Esterase,Urine Negative (Negative); Nitrite,Urine Negative (Negative); Protein,Urine 1+ (Neg - Trace); RBC,Urine 2 /hpf (0-3); Specific Gravity,Urine 1.027 (1.001-1.035); Urobilinogen,Urine Negative mg/dL (0.0-1.0); WBC,Urine 1 /hpf (0-5)
[2025-04-21] MEDS: POT CHL ADDITIVE 20 MEQ in RINGERS LACTATED 1000 ML 1,000 ML 250 MEQ IV (13:33)
[2025-04-21] MEDS: MORPHINE SULF INJ 10 MG/ML VIAL IVP ×4 (13:50→23:14)
[2025-04-21 14:41] LABS: Alcohol, Urine Negative (Negative); Amphetamine/Methamp Scrn,U Negative (Negative); Barbiturate Screen,Urine Negative (Negative); Benzodiazepines Screen,Urine Negative (Negative); Benzoylecgonine Screen, Ur Negative (Negative); Chloride,Urine Random 20.4 mMol/L (55.0-125.0); Creatinine MALB Rnd Ur 57 mg/dL (30-125); Fentanyl Screen,Urine Negative (Negative); Microalbumin Creat Ratio 61 mg/gCrea (<30); Microalbumin, Random Urine 35 mg/L (0-300); Opiate Screen,Urine Negative (Negative); Potassium,Urine Random 29 mMol/L (12-62); Sodium,Urine Random 24.8 mMol/L (20.0-110.0); THC Screen,Urine Positive (Negative)
[2025-04-21 16:43] LABS: Base Excess, Venous -5 (-3-3); O2 Saturation, Venous 55 % (96-97); PCO2, Venous 34 mmHg (36-56); PO2, Venous 31 mmHg (15-58); pH, Venous 7.37 (7.33-7.66)
--- NOTE | 2025-04-21 16:46 | XR_ITS ---
Examination: AP chest single view Technique one AP portable semiupright chest single view Date and time: April 21, 2025, 1706 hours Comparison July 12, 2022 INDICATIONS: Onset chest pain today. FINDINGS: Normal heart size. No pneumonia or pulmonary edema. Mild osteopenia IMPRESSION: No pneumonia or pulmonary edema
[2025-04-21 17:24] LABS: Albumin, Serum 4.1 gm/dL (3.4-4.8); Anion Gap 10 (7-16); BUN/Creatinine Ratio 20 Ratio (12-20); Blood Urea Nitrogen 22 mg/dL (9-23); Calcium 9.4 mg/dL (8.3-10.6); Calcium (Corrected) 9.4 mg/dL (8.5-10.1); Carbon Dioxide 20.7 mMol/L (20.0-31.0); Chloride 106 mMol/L (98-107); Creatinine (Component) 1.1 mg/dL (0.6-1.3); Estimated Creatinine Clearance 49.1 mL/min (>60); Glucose 135 mg/dL (74-106); Magnesium 1.6 mg/dL (1.6-2.6); Osmolality,Calculated 279 (275-295); Phosphorous 2.1 mg/dL (2.4-5.1); Potassium 4.5 mMol/L (3.4-5.1); Sodium 137 mMol/L (136-145); eGFR > 60 See Note
[2025-04-21 17:48] LABS: Hematocrit 36.4 % (41.0-53.0); Hemoglobin 12.8 g/dL (13.5-16.0)
[2025-04-21] MEDS: cefTRIAXone/D5w 1gm IV premix 1 GM/50 ML BAG IV (17:56)
[2025-04-21] MEDS: Magnesium Sulfate 2 GM Ivpb 2 GM/50 ML BAG IV (17:56)
[2025-04-21] MEDS: POT CHL ADDITIVE 20 MEQ in DEXTROSE 5%-LACTATED RINGERS 1,000 ML 250 MEQ IV (18:10)
[2025-04-21 20:49] LABS: Base Excess, Venous -7 (-3-3); O2 Saturation, Venous 68 % (96-97); PCO2, Venous 37 mmHg (36-56); PO2, Venous 35 mmHg (15-58); pH, Venous 7.31 (7.33-7.66)
--- NOTE | 2025-04-21 21:24 | PC.NURSE ---
renal panel result still pending, follow up with lab.
--- NOTE | 2025-04-21 22:14 | PC.NURSE ---
renal panel still pending. spoke to lab and stated it is still running test, no definite time it will be ready. Charge Cathryn FONSECA made aware
[2025-04-21 22:20] LABS: Albumin, Serum 3.6 gm/dL (3.4-4.8); Anion Gap 12 (7-16); BUN/Creatinine Ratio 19 Ratio (12-20); Blood Urea Nitrogen 17 mg/dL (9-23); Calcium 9.1 mg/dL (8.3-10.6); Calcium (Corrected) 9.4 mg/dL (8.5-10.1); Carbon Dioxide 17.7 mMol/L (20.0-31.0); Chloride 104 mMol/L (98-107); Creatinine (Component) 0.9 mg/dL (0.6-1.3); Estimated Creatinine Clearance 60.1 mL/min (>60); Glucose 184 mg/dL (74-106); Magnesium 1.8 mg/dL (1.6-2.6); Osmolality,Calculated 274 (275-295); Phosphorous 1.9 mg/dL (2.4-5.1); Sodium 134 mMol/L (136-145); eGFR > 60 See Note
--- NOTE | 2025-04-21 22:36 | PC.NURSE ---
called Dr Rivera with updated renal panel due to drop in CO2 to continue dka protocol and will reevaluate with next lab results
[2025-04-21 23:15] LABS: Hematocrit 32.1 % (41.0-53.0); Hemoglobin 11.3 g/dL (13.5-16.0)
[2025-04-21] MEDS: POTASSIUM CHL 10 mEq IVPB 10 MEQ/100 ML BAG 50 MEQ IV (23:15)
[2025-04-21] MEDS: RINGERS LACTATED 1000 ML 1,000 ML 250 ML IV (23:15)
[2025-04-22] VITALS (49 sets, daily range): BP systolic 99–142; BP diastolic 60–87; PULSE 83–110; RESP 13–99; TEMP 36.2–37; O2SAT 95–99
[2025-04-22 00:27] LABS: Base Excess, Venous -4 (-3-3); O2 Saturation, Venous 74 % (96-97); PCO2, Venous 38 mmHg (36-56); PO2, Venous 37 mmHg (15-58); pH, Venous 7.35 (7.33-7.66)
[2025-04-22 00:58] LABS: Albumin, Serum 3.7 gm/dL (3.4-4.8); Anion Gap 8 (7-16); BUN/Creatinine Ratio 18 Ratio (12-20); Blood Urea Nitrogen 16 mg/dL (9-23); Calcium 9.1 mg/dL (8.3-10.6); Calcium (Corrected) 9.3 mg/dL (8.5-10.1); Carbon Dioxide 20.6 mMol/L (20.0-31.0); Chloride 106 mMol/L (98-107); Creatinine (Component) 0.9 mg/dL (0.6-1.3); Estimated Creatinine Clearance 60.1 mL/min (>60); Glucose 220 mg/dL (74-106); Magnesium 1.6 mg/dL (1.6-2.6); Osmolality,Calculated 278 (275-295); Phosphorous 1.5 mg/dL (2.4-5.1); Potassium 4.7 mMol/L (3.4-5.1); Sodium 135 mMol/L (136-145); eGFR > 60 See Note
--- NOTE | 2025-04-22 01:13 | PC.NURSE ---
DR. MONTANA NOTIFIED OF CO2 20.6, AND ORDER TO CONTINUE INSULIN DRIP PER PROTOCOL.
[2025-04-22] MEDS: Magnesium Sulfate 2 GM Ivpb 2 GM/50 ML BAG IV (01:17)
[2025-04-22] MEDS: DEXTROSE 5%-LACTATED RINGERS 1,000 ML 250 ML IV (03:16)
[2025-04-22] MEDS: MORPHINE SULF INJ 10 MG/ML VIAL IVP ×4 (04:07→20:01)
[2025-04-22 05:25] LABS: Base Excess, Venous -4 (-3-3); O2 Saturation, Venous 50 % (96-97); PCO2, Venous 34 mmHg (36-56); PO2, Venous 25 mmHg (15-58); pH, Venous 7.38 (7.33-7.66)
[2025-04-22 05:33] LABS: Basophils # (Auto) 0.1 Thou/mm3 (0.0-0.2); Basophils % (Auto) 1 % (0-2.5); Eosinophils # (Auto) 0.3 Thou/mm3 (0.0-0.5); Eosinophils % (Auto) 4 % (0-10); Hematocrit 35.5 % (41.0-53.0); Hemoglobin 12.3 g/dL (13.5-16.0); Immature Granulocytes % (Auto) 0 % (0-0); Immature Granulocytes Auto 0.03 Thou/mm3 (0.00-0.00); Lymphocytes # (Auto) 0.9 Thou/mm3 (1.0-4.8); Lymphocytes % (Auto) 12 % (10-50); Mean Corpuscular HGB Conc 34.6 g/dl (31.0-37.0); Mean Corpuscular Hemoglobin 27.5 pg (25.0-35.0); Mean Corpuscular Volume 79 fL (80-100); Monocytes # (Auto) 0.9 Thou/mm3 (0.0-0.8); Monocytes % (Auto) 12 % (0-12); Neutrophils % (Auto) 70 % (37-80); Nucleated Red Blood Cell % 0 /100 WBC (0); Platelet Count 148 Thou/mm3 (140-440); RDW Standard Deviation 39.4 fL (35.1-43.9); Red Blood Count 4.47 Miln/mm3 (4.50-5.90); White Blood Count 7.1 Thou/mm3 (3.8-10.6)
[2025-04-22 06:08] LABS: Alanine Aminotransferase < 7 U/L (10-49); Albumin, Serum 3.5 gm/dL (3.4-4.8); Albumin/Globulin Ratio 1.5 (1.2-2.2); Alkaline Phosphatase 81 U/L (46-116); Anion Gap 11 (7-16); Aspartate Amino Transferase < 10 U/L (0-34); BUN/Creatinine Ratio 16 Ratio (12-20); Bilirubin,Total 0.3 mg/dL (0.3-1.2); Blood Urea Nitrogen 13 mg/dL (9-23); Calcium 8.6 mg/dL (8.3-10.6); Carbon Dioxide 21.4 mMol/L (20.0-31.0); Cardiac Risk Estimate 4.9 RATIO (4.0-6.7); Chloride 103 mMol/L (98-107); Cholesterol 73 mg/dL (132-200); Creatinine (Component) 0.8 mg/dL (0.6-1.3); Estimated Creatinine Clearance 68.2 mL/min (>60); Globulin 2.3 gm/dL (2.3-3.5); Glucose 217 mg/dL (74-106); HDL Cholesterol 15 mg/dL (40-60); LDL Cholesterol,Calculated 39 mg/dL (0-130); Magnesium 1.8 mg/dL (1.6-2.6); Osmolality,Calculated 277 (275-295); Phosphorous 1.9 mg/dL (2.4-5.1); Potassium 3.8 mMol/L (3.4-5.1); Sodium 135 mMol/L (136-145); Total Protein 5.8 gm/dL (5.7-8.2); Triglycerides 96 mg/dL (30-150); eGFR > 60 See Note
[2025-04-22] MEDS: RINGERS LACTATED 1000 ML 1,000 ML 250 ML IV (06:17)
[2025-04-22] MEDS: POTASSIUM CHL 10 mEq IVPB 10 MEQ/100 ML BAG 50 MEQ IV (06:18)
--- NOTE | 2025-04-22 07:10 | XR_ITS ---
Examination: CT chest with intravenous contrast CT abdomen with intravenous contrast CT pelvis with intravenous contrast 2-D coronal and sagittal reconstructions Time of exam: April 22, [address] abdomen pelvis December 28, 2024 Indications: Diabetic ketoacidosis, clinical suspicion low density CTDI: vol (mGy) : 5.51 DLP: (mGycm): 372 Technique: Multiple axial images of the chest, abdomen and pelvis with intravenous contrast, 3.0 mm slice thickness. Images obtained post intravenous injection Isovue 370 60 cc. 2-D sagittal and coronal reconstructions. Low dose protocols were performed. One or more of the following dose reduction techniques were used; automated exposure control, adjustment of the mA and/or KV according to patient size, use of iterative reconstruction technique. Findings: No thoracic aortic aneurysmal dilatation No pulmonary artery filling defects Significant calcification left anterior descending left circumflex right coronary arteries Thickening of the lower wall of the esophagus No pneumonia or pulmonary edema. Disease or pulmonary nodules Minor atelectasis at the lung bases Liver is mildly irregular in contour with tiny liver cysts Tiny gallstones Mild splenomegaly Diffuse edema surrounding the pancreas, numerous pancreatic calcifications Moderate renal parenchymal scar formation No bowel obstruction Heavy abdominal aortic calcification Colonic diverticulosis Marked thickening of urinary bladder wall Advanced degenerative disc disease L3-L4 Impression: Heavy coronary artery calcification No pneumonia, pulmonary edema, pleural disease or pulmonary nodules Primary hepatocellular disease versus cirrhosis Mild ascites Cholelithiasis Pancreatic calcifications seen with multiple prior episodes of pancreatitis Current edema surrounding the pancreas Moderate renal parenchymal scar formation Cystitis pattern
[2025-04-22] MEDS: INSULIN GLARGINE (Lantus) 5 UNIT/0.05 ML (PER 5 UNITS) 25 UNIT SC (07:40)
[2025-04-22 07:42] LABS: Sed Rate (ESR) 69 mm/hr (0-20)
[2025-04-22 08:16] LABS: Base Excess, Venous -2 (-3-3); O2 Saturation, Venous 89 % (96-97); PCO2, Venous 31 mmHg (36-56); PO2, Venous 50 mmHg (15-58); pH, Venous 7.44 (7.33-7.66)
--- NOTE | 2025-04-22 08:18 | ESPR_ITS ---
Documentation for date of: 04/22/25 Subjective Subjective Interval history: Patient is a 70-year-old male with past medical history hypertension, hyperlipidemia, CAD status post 4 stents most recently in 2019 at [place] who is coming with chief complaint of abdominal tenderness and dark stools. Patient states that for the past 3 weeks he has had abdominal tenderness weakness and he has had dark stools. Patient states that he usually suffers of constipation and he has a bowel movement every 3 days so he started taking MiraLAX an Pepto-Bismol to have a bowel movement which initiates as a hard stool and then turns into explosive dark stools. Patient denies any nausea or vomiting and he was taking ibuprofen for his pain before switching to Tylenol after he found out that ibuprofen was bad for his gut. Patient does state he has lost about 30 pounds in the last month and he has had decreased appetite and only been able to take protein shakes. Last bowel movement was 2 days ago and he came in today because he was feeling more weak and unable to keep his eyes open. Patient has no previous history of diabetes and does not have any recent changes in medication. [place] He states that he has also had recurrent episodes of pancreatitis in the past that he has been admitted for here at [facility]. He had an EGD in 2021 which revealed moderate portal gastropathy. 04/22/2025: Patient was seen and examined in the ICU today. There were no major overnight events and patient is doing okay this morning. Patient's anion gap closed twice overnight and he was given 25 units of Lantus this morning and he tolerated full liquid diet well. He continues to have left-sided abdominal pain for which he is taking morphine right on time. He has not had a bowel movement yet and we do not see any signs of active bleeding at this time. Hemoglobin is stable at 12.3. Patient will be downgraded to the floors and he will follow-up with CT chest abdomen pelvis to rule out any possible malignancies as patient was had a concerning weight loss in the last month. Dr. Butterfield was consulted and patient will likely get an endoscopy tomorrow. Exam Vital Signs Temp Pulse Resp BP Pulse Ox O2 Del Method 97.6 F 91 18 118/70 96 Room Air 04/22/25 04:00 04/22/25 07:00 04/22/25 07:00 04/22/25 07:00 04/22/25 07:00 04/22/25 04:00 Narrative Exam Constitutional: Cachectic male no acute distress ENMT: Dry mucous membranes with black tooth on tongue and several teeth removals. No trauma or injury. Neck: Supple to palpation, No JVD CVS: RRR, S1 and S2 present, no murmurs, rubs or gallops . RESP: CTAB, no SOB, no rales, rhonchi or wheezing. No respiratory Distress GI: Normal BS, Nontender/Nondistended. MSK: Full range of motion, No trauma or deformities or masses. Skin: Warm to touch, Dry. No rashes or lesions. 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 Sensation grossly intact. Psych: (AAO) x3 . Appropriate mood and affect. Objective Labs 04/23/25 05:41 04/23/25 05:41 Labs: Laboratory Results - last 24 hr 04/21/25 04/21/25 04/21/25 07:05 08:08 08:52 WBC RBC Hgb Hct MCV MCH MCHC RDW Std Deviation Plt Count Neut % (Auto) Lymph % (Auto) [place] % (Auto) Eos % (Auto) Baso % (Auto) Neut # (Auto) Lymph # (Auto) [place] # (Auto) Eos # (Auto) Baso # (Auto) Immature Gran # (Auto) Absolute Nucleated RBC Immature Gran % Nucleated RBC % ESR PT 10.9 INR 1.0 APTT 29.9 Puncture Site Right Radial ABG pH 7.33 L ABG pCO2 19 L* ABG pO2 96 ABG HCO3 10 L ABG O2 Saturation 98 ABG Base Excess -14 L VBG pH VBG pCO2 VBG pO2 VBG O2 Sat ([place]) VBG Base Excess FiO2 21 Sodium Potassium Chloride Carbon Dioxide Anion Gap BUN Creatinine Estim Creat Clear Calc eGFR BUN/Creatinine Ratio Glucose Estimated Ave Glu mg/dL Hemoglobin A1c Calculated Osmolality Lactic Acid Calcium Corrected Calcium Phosphorus Magnesium 1.8 Total Bilirubin AST ALT Alkaline Phosphatase Total Protein Albumin Globulin Albumin/Globulin Ratio Triglycerides Cholesterol LDL Cholesterol, Calc HDL Cholesterol Cholesterol/HDL Ratio Beta-Hydroxybutyrate/Acetoacetate 5.8 H Ur Collection Type Urine Color Urine Clarity Urine pH Ur Specific [place] Urine Protein Urine Glucose (UA) Urine Ketones Urine Blood Urine Nitrite Urine Bilirubin Urine Urobilinogen (Auto) Ur Leukocyte Esterase Urine RBC Urine WBC Ur Squamous Epith Cells Urine Bacteria Hyaline Casts Ur Random Microalbumin Ur Random Sodium Ur Random Potassium Ur Random Chloride U Creat (Microalbumin) Microalb/Creat Ratio Urine Opiates Screen Urine Fentanyl Screen Ur Barbiturates Screen U Amphetamin/Meth Scrn U Benzodiazepines Scrn U Cocaine Metab Screen U Marijuana (THC) Screen Urine Alcohol Blood Type Antibody Screen Blood Bank Wristband ID 04/21/25 04/21/25 04/21/25 11:28 12:34 16:26 WBC RBC Hgb Hct MCV MCH MCHC RDW Std Deviation Plt Count Neut % (Auto) Lymph % (Auto) [place] % (Auto) Eos % (Auto) Baso % (Auto) Neut # (Auto) Lymph # (Auto) [place] # (Auto) Eos # (Auto) Baso # (Auto) Immature Gran # (Auto) Absolute Nucleated RBC Immature Gran % Nucleated RBC % ESR PT INR APTT Puncture Site ABG pH ABG pCO2 ABG pO2 ABG HCO3 ABG O2 Saturation ABG Base Excess VBG pH 7.26 L 7.37 VBG pCO2 37 34 L VBG pO2 26 31 VBG O2 Sat ([place]) 41 L 55 L D VBG Base Excess -10 L -5 L FiO2 Sodium 132 L 137 Potassium 4.0 D 4.5 D Chloride 99 106 Carbon Dioxide 15.6 L 20.7 Anion Gap 17 H 10 BUN 27 H 22 Creatinine 1.4 H 1.1 Estim Creat Clear Calc 37.6 L 49.1 L eGFR 54 L > 60 BUN/Creatinine Ratio 19 20 Glucose 305 H D [address] Glu mg/dL 295 H Hemoglobin A1c 11.9 H Calculated Osmolality 280 279 Lactic Acid 1.6 Calcium 10.2 9.4 Corrected Calcium 10.2 H 9.4 Phosphorus 3.0 2.1 L Magnesium 1.9 1.6 Total Bilirubin AST ALT Alkaline Phosphatase Total Protein Albumin 4.7 4.1 D Globulin Albumin/Globulin Ratio Triglycerides Cholesterol LDL Cholesterol, Calc HDL Cholesterol Cholesterol/HDL Ratio Beta-Hydroxybutyrate/Acetoacetate Ur Collection Type Catheter Urine Color Lt-Yellow Urine Clarity Clear Urine pH 6.0 Ur Specific [place] 1.027 Urine Protein 1+ A Urine Glucose (UA) 4+ A Urine Ketones 3+ A Urine Blood Negative Urine Nitrite Negative Urine Bilirubin Negative Urine Urobilinogen (Auto) Negative Ur Leukocyte Esterase Negative Urine RBC 2 Urine WBC 1 Ur Squamous Epith Cells 0 Urine Bacteria None Hyaline Casts < 1 Ur Random Microalbumin 35 Ur Random Sodium 24.8 Ur Random Potassium 29 Ur Random Chloride 20.4 L U Creat (Microalbumin) 57 Microalb/Creat Ratio 61 H Urine Opiates Screen Negative Urine Fentanyl Screen Negative Ur Barbiturates Screen Negative U Amphetamin/Meth Scrn Negative U Benzodiazepines Scrn Negative U Cocaine Metab Screen Negative U Marijuana (THC) Screen Positive A Urine Alcohol Negative Blood Type Antibody Screen Blood Bank Wristband ID 04/21/25 04/21/25 04/21/25 17:19 20:36 22:59 WBC RBC Hgb 12.8 L D 11.3 L Hct 36.4 L 32.1 L MCV MCH MCHC RDW Std Deviation Plt Count Neut % (Auto) Lymph % (Auto) [place] % (Auto) Eos % (Auto) Baso % (Auto) Neut # (Auto) Lymph # (Auto) [place] # (Auto) Eos # (Auto) Baso # (Auto) Immature Gran # (Auto) Absolute Nucleated RBC Immature Gran % Nucleated RBC % ESR PT INR APTT Puncture Site ABG pH ABG pCO2 ABG pO2 ABG HCO3 ABG O2 Saturation ABG Base Excess VBG pH 7.31 L VBG pCO2 37 VBG pO2 35 VBG O2 Sat ([place]) 68 L D VBG Base Excess -7 L FiO2 Sodium 134 L Potassium 4.0 D Chloride 104 Carbon Dioxide 17.7 L Anion Gap 12 BUN 17 Creatinine 0.9 Estim Creat Clear Calc 60.1 L eGFR > 60 BUN/Creatinine Ratio [address] Glu mg/dL Hemoglobin A1c Calculated Osmolality 274 L Lactic Acid Calcium 9.1 Corrected Calcium 9.4 Phosphorus 1.9 L Magnesium 1.8 Total Bilirubin AST ALT Alkaline Phosphatase Total Protein Albumin 3.6 D Globulin Albumin/Globulin Ratio Triglycerides Cholesterol LDL Cholesterol, Calc HDL Cholesterol Cholesterol/HDL Ratio Beta-Hydroxybutyrate/Acetoacetate Ur Collection Type Urine Color Urine Clarity Urine pH Ur Specific [place] Urine Protein Urine Glucose (UA) Urine Ketones Urine Blood Urine Nitrite Urine Bilirubin Urine Urobilinogen (Auto) Ur Leukocyte Esterase Urine RBC Urine WBC Ur Squamous Epith Cells Urine Bacteria Hyaline Casts Ur Random Microalbumin Ur Random Sodium Ur Random Potassium Ur Random Chloride U Creat (Microalbumin) Microalb/Creat Ratio Urine Opiates Screen Urine Fentanyl Screen Ur Barbiturates Screen U Amphetamin/Meth Scrn U Benzodiazepines Scrn U Cocaine Metab Screen U Marijuana (THC) Screen Urine Alcohol Blood Type O Positive Antibody Screen NEGATIVE Blood Bank Wristband ID Yes 04/22/25 04/22/25 00:07 04:52 WBC 7.1 D RBC 4.47 L Hgb 12.3 L Hct 35.5 L MCV 79 L MCH 27.5 MCHC 34.6 RDW Std Deviation 39.4 Plt Count 148 D Neut % (Auto) 70 Lymph % (Auto) 12 [place] % (Auto) 12 Eos % (Auto) 4 Baso % (Auto) 1 Neut # (Auto) 5.0 Lymph # (Auto) 0.9 L [place] # (Auto) 0.9 H Eos # (Auto) 0.3 Baso # (Auto) 0.1 Immature Gran # (Auto) 0.03 H Absolute Nucleated RBC 0.00 Immature Gran % 0 Nucleated RBC % 0 ESR 69 H PT INR APTT Puncture Site ABG pH ABG pCO2 ABG pO2 ABG HCO3 ABG O2 Saturation ABG Base Excess VBG pH 7.35 7.38 VBG pCO2 38 34 L VBG pO2 37 25 VBG O2 Sat ([place]) 74 L 50 L D VBG Base Excess -4 L -4 L FiO2 Sodium 135 L 135 L Potassium 4.7 D 3.8 D Chloride 106 103 Carbon Dioxide 20.6 21.4 Anion Gap 8 11 BUN 16 13 Creatinine 0.9 0.8 Estim Creat Clear Calc 60.1 L 68.2 eGFR > 60 > 60 BUN/Creatinine Ratio 18 16 Glucose [address] Glu mg/dL Hemoglobin A1c Calculated Osmolality 278 277 Lactic Acid Calcium 9.1 8.6 Corrected Calcium 9.3 9.0 Phosphorus 1.5 L 1.9 L Magnesium 1.6 1.8 Total Bilirubin 0.3 AST < 10 ALT < 7 L Alkaline Phosphatase 81 D Total Protein 5.8 Albumin 3.7 3.5 Globulin 2.3 Albumin/Globulin Ratio 1.5 Triglycerides 96 Cholesterol 73 L LDL Cholesterol, Calc 39 HDL Cholesterol 15 L Cholesterol/HDL Ratio 4.9 Beta-Hydroxybutyrate/Acetoacetate Ur Collection Type Urine Color Urine Clarity Urine pH Ur Specific [place] Urine Protein Urine Glucose (UA) Urine Ketones Urine Blood Urine Nitrite Urine Bilirubin Urine Urobilinogen (Auto) Ur Leukocyte Esterase Urine RBC Urine WBC Ur Squamous Epith Cells Urine Bacteria Hyaline Casts Ur Random Microalbumin Ur Random Sodium Ur Random Potassium Ur Random Chloride U Creat (Microalbumin) Microalb/Creat Ratio Urine Opiates Screen Urine Fentanyl Screen Ur Barbiturates Screen U Amphetamin/Meth Scrn U Benzodiazepines Scrn U Cocaine Metab Screen U Marijuana (THC) Screen Urine Alcohol Blood Type Antibody Screen Blood Bank Wristband ID ABG Interpretation ABG results: 04/21/25 04/21/25 04/21/25 08:52 11:28 16:26 ABG pH 7.33 L ABG pCO2 19 L* ABG pO2 96 ABG HCO3 10 L ABG O2 Saturation 98 ABG Base Excess -14 L VBG pH 7.26 L 7.37 VBG pCO2 37 34 L VBG pO2 26 31 VBG Base Excess -10 L -5 L 04/21/25 04/22/25 04/22/25 20:36 00:07 04:52 ABG pH ABG pCO2 ABG pO2 ABG HCO3 ABG O2 Saturation ABG Base Excess VBG pH 7.31 L 7.35 7.38 VBG pCO2 37 38 34 L VBG pO2 35 37 25 VBG Base Excess -7 L -4 L -4 L Quality Measures Quality Measures none Advance care planning discussed with:: patient Assessment & Plan Assessment Current Active Medications: Generic Name Dose Route Start Last Admin Trade Name Freq PRN Reason Stop Dose Admin Acetaminophen 650 mg 04/21/25 11:08 Acetaminophen 325 Mg Tablet PO 05/21/25 11:07 Q6H PRN Mild Pain 1-3 or fever >100.3 Albuterol/Ipratropium 3 ml 04/21/25 16:47 Albuterol/Ipratropium (Duoneb) Rt Meme 3 Ml Nebu INH 05/21/25 16:46 Q6HRRT PRN SHORTNESS OF BREATH OR WHEEZE Dextrose 25 ml 04/21/25 11:13 Dextrose 50%-Water Inj 50 Ml Syringe IV [id number] PRN Blood Sugar - Low Dextrose 25 ml 04/22/25 06:16 Dextrose 50%-Water Inj 50 Ml Syringe IV 05/22/25 06:15 Q15MIN PRN BG 50-70 responsive npo pt Dextrose 50 ml 04/22/25 06:16 Dextrose 50%-Water Inj 50 Ml Syringe IV 05/22/25 06:15 Q15MIN PRN BG <50 OR BG <70 & pt unresponsive Glucagon 1 mg 04/22/25 06:16 Glucagon Inj 1 Mg Vial IM Q15MIN PRN BG <70, and no IV access Heparin Sodium (Porcine) 5,000 unit 04/22/25 14:00 Heparin Sod Inj 5000 Unit/Ml Vial SC 05/06/25 13:59 Q8HR JUANITA Potassium Chloride 10 meq in 100 mls @ 100 mls/hr 04/21/25 11:13 Kcl Ivpb IV 05/21/25 11:12 .Q1H PRN IF POTASSIUM LESS THAN 3.3 Magnesium Sulfate 2 gm in 50 mls @ 25 mls/hr 04/21/25 11:13 04/22/25 03:17 Magnesium Sulfate Ivpb IV 05/21/25 11:12 Infused .Q2H PRN Infusion PER DKA PROTOCOL Insulin Human Regular 100 unit 100 mls @ 5.489 mls/hr 04/21/25 11:13 04/22/25 07:00 / IV Miscellaneous Supplies IV 05/21/25 11:12 0.1 unit/kg/hr .[id number] PRN 5.489 mls/hr PER PROTOCOL Titration Protocol 0.1 UNIT/KG/HR Dextrose/Lactated Ringer's 1,000 mls @ 250 mls/hr 04/21/25 11:13 04/22/25 06:18 D5-Lr IV 05/21/25 11:12 0 mls/hr .Q4H PRN Infusion PER PROTOCOL Lactated Ringer's 1,000 mls @ 250 mls/hr 04/21/25 11:13 04/22/25 06:17 Lactated Ringers IV 04/22/25 11:12 250 mls/hr .Q4H PRN Administration PER PROTOCOL Potassium Chloride 20 meq/ 1,010 mls @ 250 mls/hr 04/21/25 11:13 04/21/25 22:00 Lactated Ringer's IV 05/21/25 11:12 Infused .Q4H3M PRN Infusion K LEVEL 3.3 TO 5.3mM/L Potassium Chloride 40 meq/ 1,020 mls @ 250 mls/hr 04/21/25 11:13 Lactated Ringer's IV 05/21/25 11:12 .Q4H5M PRN K LEVEL < 3.3 mM/L Potassium Chloride 40 meq/ 1,020 mls @ 250 mls/hr 04/21/25 11:13 Dextrose/Lactated Ringer's IV 05/21/25 11:12 .Q4H5M PRN K LEVEL < 3.3mM/L Potassium Chloride 20 meq/ 1,010 mls @ 250 mls/hr 04/21/25 11:13 04/21/25 23:15 Dextrose/Lactated Ringer's IV 05/21/25 11:12 Infused .Q4H3M PRN Infusion K LEVEL 3.3 TO 5.3 mM/L Potassium Chloride 10 meq in 100 mls @ 50 mls/hr 04/21/25 11:13 04/22/25 06:18 Kcl Ivpb IV 05/21/25 11:12 50 mls/hr PRN PRN Administration K LEVEL 3.3 to 5.3 & BG > 200 Potassium Phosphate 15 mmol in 250 mls @ 62.5 mls/hr 04/21/25 11:13 Pot Phos 15 Mmol In Ns 250 Ml IV 05/21/25 11:12 PRN PRN Phosphate <= 1mg/dL Sodium Phosphate 15 mmol/ 255 mls @ 62.5 mls/hr 04/21/25 11:13 Sodium Chloride IV 05/21/25 11:12 .Q4H5M PRN Phosphate <= 1mg/dL and K> than 5.3 Ceftriaxone Sodium/Dextrose 1 gm in 50 mls @ 100 mls/hr 04/21/25 17:11 04/21/25 22:00 Rocephin/D5w 1gm Iv Premix IV 04/28/25 17:10 Infused QDAY JUANITA Infusion Insulin Glargine 25 unit 04/22/25 07:30 04/22/25 07:40 Insulin Glargine (Lantus) 5 Unit/0.05 Ml (Per 5 Units) SC 05/22/25 07:29 25 unit QDAY JUANITA Administration Insulin Human Lispro 0 unit 04/22/25 07:30 04/22/25 07:35 Insulin Lispro (Admelog) 1 Unit/0.01 Ml Unit SC 05/22/25 07:29 Not Given AC [facility] Protocol Morphine Sulfate 1 mg 04/22/25 07:11 Morphine Sulf Inj 10 Mg/Ml Vial IVP 04/26/25 11:07 Q6HR PRN PAIN SCALE 4-10(Mod-Sev Ondansetron HCl 4 mg 04/21/25 11:08 Ondansetron Inj 2 Mg/Ml Inj 2 Ml IVP 05/21/25 11:07 Q6H PRN NAUSEA OR VOMITING Protocol Pantoprazole Sodium 40 mg 04/21/25 21:00 04/21/25 20:30 Pantoprazole Inj 40 Mg Vial IVP 05/21/25 20:59 40 mg Q12HR JUANITA Administration Sennosides 1 tab 04/21/25 11:08 Senna Tablet PO 05/21/25 11:07 QDAY PRN constipation Protocol Sodium Bicarbonate 50 ml 04/21/25 11:13 Sodium Bicarb Inj 8.4% Syr 50 Ml Syringe IV 05/21/25 11:12 PRN PRN For ph <= to 7.0 Plan 70-year-old male with past medical history hypertension, hyperlipidemia, CAD status post 4 stents most recently in 2019 at [place] admitted to the ICU for DKA Neuro Stable CVS CAD- s/p stent Resp h/o Tobacco abuse GI ? GIB- pt has reported black stools and weight loss - GI consulted - for endoscopy Anorexia- 30lb weight loss in 30 days - eval for underlying malignancy h/o cirrhosis h/o chronic pancreatitis - no active pain Renal EDUARDO- monitor i/os - improving Metabolic acidosis- 2/2 DKA Endocrine New onset diabetes mellitus New onset DKA- gap has closed - transitioned to subq insulin - DM education ID/Skin Stable Patient denies any fevers, chills, coughing, or diarrhea Hematology Leukocytosis- reactive stable and ok for downgrade Attending Provider Attestation/Addendum pt seen and examined with resident, agree with above. NAD, AAOx4, LCTAB, HRRR, abd s/nt/bs+. DKA and AG has closed, transition to subq insulin. cont workup for underlying malignancy and weight loss labs, imaging, records reviewed ~35min required for eval , exam, review , intervention, discussion and formulation of POC for this pt
[2025-04-22 08:44] LABS: Albumin, Serum 3.5 gm/dL (3.4-4.8); Anion Gap 8 (7-16); BUN/Creatinine Ratio 16 Ratio (12-20); Blood Urea Nitrogen 11 mg/dL (9-23); Calcium 8.5 mg/dL (8.3-10.6); Calcium (Corrected) 8.9 mg/dL (8.5-10.1); Chloride 106 mMol/L (98-107); Creatinine (Component) 0.7 mg/dL (0.6-1.3); Estimated Creatinine Clearance 77.9 mL/min (>60); Glucose 150 mg/dL (74-106); Lipase 174 U/L (12-53); Magnesium 1.8 mg/dL (1.6-2.6); Osmolality,Calculated 274 (275-295); Phosphorous 1.1 mg/dL (2.4-5.1); Potassium 3.5 mMol/L (3.4-5.1); Sodium 136 mMol/L (136-145); eGFR > 60 See Note
[2025-04-22] MEDS: cefTRIAXone/D5w 1gm IV premix 1 GM/50 ML BAG IV (08:46)
[2025-04-22] MEDS: POLYETHYLENE GLYCOL 17 GM PACKET PO (08:49)
[2025-04-22] MEDS: PANTOPRAZOLE INJ 40 MG VIAL IVP ×2 (08:49→20:02)
[2025-04-22 08:57] LABS: C-Reactive Protein 23.3 mg/dL (0.0-0.9)
--- NOTE | 2025-04-22 09:44 | PD.IMCONS ---
HPI Data of Consult Requesting Physician: Yu Royal MD Primary Care Provider: SINTIA Mancia Consult Narrative Reason for consult: Tarry stools drop in H/H abnormal weight loss elevated lipase History of present illness: 70 years old male evaluated request of the emergency room team as well as internal medicine team For patient presenting with 20.8/black tarry stools elevated lipase with abdominal pain He does drink alcohol He does have a history of COPD hypertension hyperlipidemia coronary artery status post stent placement and alcohol related cirrhosis cc:: cc: Yu oRyal MD Past Medical History Surgical History OTHER SURGICAL HX: As in the history of present illness Meds Home Medications and Allergies Home Medications ?Medication ?Instructions ?Recorded ?Confirmed ?Type albuterol sulfate 90 mcg/actuation 2 puff inhalation Q4H PRN sob 07/13/22 04/21/25 History aerosol inhaler clopidogrel 75 mg tablet 75 mg PO QDAY 07/13/22 04/21/25 History simvastatin 20 mg tablet 20 mg PO QDAY 07/13/22 04/21/25 History metoprolol tartrate 25 mg tablet 25 mg PO Q12H 04/21/25 04/21/25 History Allergies Allergy/AdvReac Type Severity Reaction Status Date / Time No Known Allergies Allergy Verified 04/23/25 13:10 Exam Vital Signs Temp Pulse Resp BP Pulse Ox O2 Del Method 98.2 F 102 H 23 H 117/69 98 Room Air 04/22/25 08:00 04/22/25 09:20 04/22/25 09:20 04/22/25 08:00 04/22/25 09:20 04/22/25 08:00 Constitutional Comments: Alert oriented seen in the ICU bed in room 255 Routine Respiratory Exam Comments: Scattered rhonchi Routine Abdominal Exam Comments: Midepigastric tenderness Results Labs 04/23/25 05:41 04/23/25 05:41 Labs: Short CBC 04/21/25 04/21/25 04/22/25 Range/Units 17:19 22:59 04:52 WBC 7.1 D (3.8-10.6) Thou/mm3 Hgb 12.8 L D 11.3 L 12.3 L (13.5-16.0) g/dL Hct 36.4 L 32.1 L 35.5 L (41.0-53.0) % Plt Count 148 D (140-440) Thou/mm3 BMP 04/21/25 04/21/25 04/21/25 11:28 16:26 20:36 Sodium 132 L 137 134 L Potassium 4.0 D 4.5 D 4.0 D Chloride 99 106 104 Carbon Dioxide 15.6 L 20.7 17.7 L BUN 27 H 22 17 Creatinine 1.4 H 1.1 0.9 Glucose 305 H D 135 H D 184 H Calcium 10.2 9.4 9.1 04/22/25 04/22/25 04/22/25 00:07 04:52 07:59 Sodium 135 L 135 L 136 Potassium 4.7 D 3.8 D 3.5 Chloride 106 103 106 Carbon Dioxide 20.6 21.4 22.0 BUN 16 13 11 Creatinine 0.9 0.8 0.7 Glucose 220 H 217 H 150 H D Calcium 9.1 8.6 8.5 Liver Function 04/21/25 04/21/25 04/21/25 Range/Units 11:28 16:26 20:36 Total Bilirubin (0.3-1.2) mg/dL AST (0-34) U/L ALT (10-49) U/L Alkaline Phosphatase (46-116) U/L Albumin 4.7 4.1 D 3.6 D (3.4-4.8) gm/dL 04/22/25 04/22/25 04/22/25 Range/Units 00:07 04:52 07:59 Total Bilirubin 0.3 (0.3-1.2) mg/dL AST < 10 (0-34) U/L ALT < 7 L (10-49) U/L Alkaline Phosphatase 81 D (46-116) U/L Albumin 3.7 3.5 3.5 (3.4-4.8) gm/dL Urine 04/21/25 Range/Units 12:34 Urine Color Lt-Yellow (Lt Yel-Yel) Urine Clarity Clear (Clear/Hazy) Urine pH 6.0 (5.0-7.0) Ur Specific [place] 1.027 (1.001-1.035) Urine Protein 1+ A (Neg - Trace) Urine Glucose (UA) 4+ A (Negative) ABG Interpretation ABG results: 04/21/25 04/21/25 04/21/25 08:52 11:28 16:26 ABG pH 7.33 L ABG pCO2 19 L* ABG pO2 96 ABG HCO3 10 L ABG O2 Saturation 98 ABG Base Excess -14 L VBG pH 7.26 L 7.37 VBG pCO2 37 34 L VBG pO2 26 31 VBG Base Excess -10 L -5 L 04/21/25 04/22/25 04/22/25 20:36 00:07 04:52 ABG pH ABG pCO2 ABG pO2 ABG HCO3 ABG O2 Saturation ABG Base Excess VBG pH 7.31 L 7.35 7.38 VBG pCO2 37 38 34 L VBG pO2 35 37 25 VBG Base Excess -7 L -4 L -4 L 04/22/25 07:59 ABG pH ABG pCO2 ABG pO2 ABG HCO3 ABG O2 Saturation ABG Base Excess VBG pH 7.44 VBG pCO2 31 L VBG pO2 50 D VBG Base Excess -2 Assessment and Plan Additional Assessment & Plan Additional Plan: # Occult GI bleeding with drop in hemoglobin hematocrit from baseline of 15.9 and 45.7-11.3 and 32.2 Plan Consent obtained for fiberoptic esophagogastroduodenoscopy with possible therapeutic intervention possible biopsy under intravenous moderate sedation Patient can have clear liquid diet N.p.o. 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
[2025-04-22] MEDS: INSULIN LISPRO (AdmeLOG) 1 UNIT/0.01 ML UNIT SC ×2 (11:54→16:32)
--- NOTE | 2025-04-22 12:06 | PD.RESPRO ---
Documentation for date of: 04/22/25 Subjective Subjective Interval history: Admitted on 04/21 for management of new onset DKA likely secondary to pancreatic insufficiency secondary to recurrent pancreatitis likely secondary to significant alcohol and smoking history. States that he has been unable to eat solid food for the last 30 days, drinking mostly protein shakes, due to decreased appetite as well as diffuse abdominal discomfort. Of note, states that he is have dark stools as well and pending EGD with Dr. Butterfield. Vital signs stable. Leukocytosis resolved. VBG showed pH 7.4, pCO2 31, PO2 50. K 3.5, HCO3 (initial 14) 22, AG closed (initial 20), glucose 150 (initial 552), A1c 11.9%, phosphorus 1.1, CRP 23, lipase 174 (279). Started on glargine 25 units daily and on SSI. Most recent fingerstick 169 prior to lunch. Exam Vital Signs Temp Pulse Resp BP Pulse Ox O2 Del Method 98.2 F 94 20 120/77 96 Room Air 04/22/25 08:00 04/22/25 10:55 04/22/25 10:55 04/22/25 10:00 04/22/25 10:00 04/22/25 08:00 Narrative Exam General: underweight, AOx3, no acute distress, able to speak full sentences HEENT: NC/AT, mucous membranes moist, bilateral sclera anicteric Cardiovascular: regular rate and rhythm, S1/S2 present, no murmurs appreciated Pulmonary: clear to auscultation bilaterally, no rales/rhonchi/wheezes Abdominal: tender in LUQ and epigastrium, soft, non-distended, no rebound/guarding, normal bowel sounds present Musculoskeletal: normal ROM, no peripheral edema Skin: warm and dry, intact, no rashes Neuro: CN II-XII intact, no focal deficits Objective Labs 04/22/25 04:52 04/22/25 07:59 Labs: Laboratory Results - last 24 hr 04/21/25 04/21/25 04/21/25 11:28 12:34 16:26 WBC RBC Hgb Hct MCV MCH MCHC RDW Std Deviation Plt Count Neut % (Auto) Lymph % (Auto) [place] % (Auto) Eos % (Auto) Baso % (Auto) Neut # (Auto) Lymph # (Auto) [place] # (Auto) Eos # (Auto) Baso # (Auto) Immature Gran # (Auto) Absolute Nucleated RBC Immature Gran % Nucleated RBC % ESR VBG pH 7.26 L 7.37 VBG pCO2 37 34 L VBG pO2 26 31 VBG O2 Sat ([place]au) 41 L 55 L D VBG Base Excess -10 L -5 L Sodium 132 L 137 Potassium 4.0 D 4.5 D Chloride 99 106 Carbon Dioxide 15.6 L 20.7 Anion Gap 17 H 10 BUN 27 H 22 Creatinine 1.4 H 1.1 Estim Creat Clear Calc 37.6 L 49.1 L eGFR 54 L > 60 BUN/Creatinine Ratio 19 20 Glucose 305 H D 135 H D Calculated Osmolality 280 279 Calcium 10.2 9.4 Corrected Calcium 10.2 H 9.4 Phosphorus 3.0 2.1 L Magnesium 1.9 1.6 Total Bilirubin AST ALT Alkaline Phosphatase C-Reactive Prot, Quant Total Protein Albumin 4.7 4.1 D Globulin Albumin/Globulin Ratio Triglycerides Cholesterol LDL Cholesterol, Calc HDL Cholesterol Cholesterol/HDL Ratio Lipase Ur Collection Type Catheter Urine Color Lt-Yellow Urine Clarity Clear Urine pH 6.0 Ur Specific [place] 1.027 Urine Protein 1+ A Urine Glucose (UA) 4+ A Urine Ketones 3+ A Urine Blood Negative Urine Nitrite Negative Urine Bilirubin Negative Urine Urobilinogen (Auto) Negative Ur Leukocyte Esterase Negative Urine RBC 2 Urine WBC 1 Ur Squamous Epith Cells 0 Urine Bacteria None Hyaline Casts < 1 Ur Random Microalbumin 35 Ur Random Sodium 24.8 Ur Random Potassium 29 Ur Random Chloride 20.4 L U Creat (Microalbumin) 57 Microalb/Creat Ratio 61 H Urine Opiates Screen Negative Urine Fentanyl Screen Negative Ur Barbiturates Screen Negative U Amphetamin/Meth Scrn Negative U Benzodiazepines Scrn Negative U Cocaine Metab Screen Negative U Marijuana (THC) Screen Positive A Urine Alcohol Negative Blood Type Antibody Screen Blood Bank Wristband ID 04/21/25 04/21/25 04/21/25 17:19 20:36 22:59 WBC RBC Hgb 12.8 L D 11.3 L Hct 36.4 L 32.1 L MCV MCH MCHC RDW Std Deviation Plt Count Neut % (Auto) Lymph % (Auto) [place] % (Auto) Eos % (Auto) Baso % (Auto) Neut # (Auto) Lymph # (Auto) [place] # (Auto) Eos # (Auto) Baso # (Auto) Immature Gran # (Auto) Absolute Nucleated RBC Immature Gran % Nucleated RBC % ESR VBG pH 7.31 L VBG pCO2 37 VBG pO2 35 VBG O2 Sat ([place]au) 68 L D VBG Base Excess -7 L Sodium 134 L Potassium 4.0 D Chloride 104 Carbon Dioxide 17.7 L Anion Gap 12 BUN 17 Creatinine 0.9 Estim Creat Clear Calc 60.1 L eGFR > 60 BUN/Creatinine Ratio 19 Glucose 184 H Calculated Osmolality 274 L Calcium 9.1 Corrected Calcium 9.4 Phosphorus 1.9 L Magnesium 1.8 Total Bilirubin AST ALT Alkaline Phosphatase C-Reactive Prot, Quant Total Protein Albumin 3.6 D Globulin Albumin/Globulin Ratio Triglycerides Cholesterol LDL Cholesterol, Calc HDL Cholesterol Cholesterol/HDL Ratio Lipase Ur Collection Type Urine Color Urine Clarity Urine pH Ur Specific [place] Urine Protein Urine Glucose (UA) Urine Ketones Urine Blood Urine Nitrite Urine Bilirubin Urine Urobilinogen (Auto) Ur Leukocyte Esterase Urine RBC Urine WBC Ur Squamous Epith Cells Urine Bacteria Hyaline Casts Ur Random Microalbumin Ur Random Sodium Ur Random Potassium Ur Random Chloride U Creat (Microalbumin) Microalb/Creat Ratio Urine Opiates Screen Urine Fentanyl Screen Ur Barbiturates Screen U Amphetamin/Meth Scrn U Benzodiazepines Scrn U Cocaine Metab Screen U Marijuana (THC) Screen Urine Alcohol Blood Type O Positive Antibody Screen NEGATIVE Blood Bank Wristband ID Yes 04/22/25 04/22/25 04/22/25 00:07 04:52 07:59 WBC 7.1 D RBC 4.47 L Hgb 12.3 L Hct 35.5 L MCV 79 L MCH 27.5 MCHC 34.6 RDW Std Deviation 39.4 Plt Count 148 D Neut % (Auto) 70 Lymph % (Auto) 12 [place] % (Auto) 12 Eos % (Auto) 4 Baso % (Auto) 1 Neut # (Auto) 5.0 Lymph # (Auto) 0.9 L [place] # (Auto) 0.9 H Eos # (Auto) 0.3 Baso # (Auto) 0.1 Immature Gran # (Auto) 0.03 H Absolute Nucleated RBC 0.00 Immature Gran % 0 Nucleated RBC % 0 ESR 69 H VBG pH 7.35 7.38 7.44 VBG pCO2 38 34 L 31 L VBG pO2 37 25 50 D VBG O2 Sat ([place]) 74 L 50 L D 89 L D VBG Base Excess -4 L -4 L -2 Sodium 135 L 135 L 136 Potassium 4.7 D 3.8 D 3.5 Chloride 106 103 106 Carbon Dioxide 20.6 21.4 22.0 Anion Gap 8 11 8 BUN 16 13 11 Creatinine 0.9 0.8 0.7 Estim Creat Clear Calc 60.1 L 68.2 77.9 eGFR > 60 > 60 > 60 BUN/Creatinine Ratio 18 16 16 Glucose 220 H 217 H 150 H D Calculated Osmolality 278 277 274 L Calcium 9.1 8.6 8.5 Corrected Calcium 9.3 9.0 8.9 Phosphorus 1.5 L 1.9 L 1.1 L Magnesium 1.6 1.8 1.8 Total Bilirubin 0.3 AST < 10 ALT < 7 L Alkaline Phosphatase 81 D C-Reactive Prot, Quant 23.3 H Total Protein 5.8 Albumin 3.7 3.5 3.5 Globulin 2.3 Albumin/Globulin Ratio 1.5 Triglycerides 96 Cholesterol 73 L LDL Cholesterol, Calc 39 HDL Cholesterol 15 L Cholesterol/HDL Ratio 4.9 Lipase 174 H D Ur Collection Type Urine Color Urine Clarity Urine pH Ur Specific [place] Urine Protein Urine Glucose (UA) Urine Ketones Urine Blood Urine Nitrite Urine Bilirubin Urine Urobilinogen (Auto) Ur Leukocyte Esterase Urine RBC Urine WBC Ur Squamous Epith Cells Urine Bacteria Hyaline Casts Ur Random Microalbumin Ur Random Sodium Ur Random Potassium Ur Random Chloride U Creat (Microalbumin) Microalb/Creat Ratio Urine Opiates Screen Urine Fentanyl Screen Ur Barbiturates Screen U Amphetamin/Meth Scrn U Benzodiazepines Scrn U Cocaine Metab Screen U Marijuana (THC) Screen Urine Alcohol Blood Type Antibody Screen Blood Bank Wristband ID ABG Interpretation ABG results: 04/21/25 04/21/25 04/21/25 08:52 11:28 16:26 ABG pH 7.33 L ABG pCO2 19 L* ABG pO2 96 ABG HCO3 10 L ABG O2 Saturation 98 ABG Base Excess -14 L VBG pH 7.26 L 7.37 VBG pCO2 37 34 L VBG pO2 26 31 VBG Base Excess -10 L -5 L 04/21/25 04/22/25 04/22/25 20:36 00:07 04:52 ABG pH ABG pCO2 ABG pO2 ABG HCO3 ABG O2 Saturation ABG Base Excess VBG pH 7.31 L 7.35 7.38 VBG pCO2 37 38 34 L VBG pO2 35 37 25 VBG Base Excess -7 L -4 L -4 L 04/22/25 07:59 ABG pH ABG pCO2 ABG pO2 ABG HCO3 ABG O2 Saturation ABG Base Excess VBG pH 7.44 VBG pCO2 31 L VBG pO2 50 D VBG Base Excess -2 Quality Measures Quality Measures none Advance care planning discussed with:: patient Assessment & Plan Assessment Current Active Medications: Generic Name Dose Route Start Last Admin Trade Name Freq PRN Reason Stop Dose Admin Acetaminophen 650 mg 04/21/25 11:08 Acetaminophen 325 Mg Tablet PO 05/21/25 11:07 Q6H PRN Mild Pain 1-3 or fever >100.3 Albuterol/Ipratropium 3 ml 04/21/25 16:47 Albuterol/Ipratropium (Duoneb) Rt Meme 3 Ml Nebu INH 05/21/25 16:46 Q6HRRT PRN SHORTNESS OF BREATH OR WHEEZE Dextrose 25 ml 04/21/25 11:13 Dextrose 50%-Water Inj 50 Ml Syringe IV [id number] PRN Blood Sugar - Low Dextrose 25 ml 04/22/25 06:16 Dextrose 50%-Water Inj 50 Ml Syringe IV 05/22/25 06:15 Q15MIN PRN BG 50-70 responsive npo pt Glucagon 1 mg 04/22/25 06:16 Glucagon Inj 1 Mg Vial IM Q15MIN PRN BG <70, and no IV access Heparin Sodium (Porcine) 5,000 unit 04/22/25 14:00 Heparin Sod Inj 5000 Unit/Ml Vial SC 05/06/25 13:59 Q8HR JUANITA Sodium Phosphate 15 mmol/ 255 mls @ 62.5 mls/hr 04/21/25 11:13 Sodium Chloride IV 05/21/25 11:12 .Q4H5M PRN Phosphate <= 1mg/dL and K> than 5.3 Ceftriaxone Sodium/Dextrose 1 gm in 50 mls @ 100 mls/hr 04/21/25 17:11 04/22/25 09:32 Rocephin/D5w 1gm Iv Premix IV 04/28/25 17:10 Infused QDAY JUANITA Infusion Insulin Glargine 25 unit 04/22/25 07:30 04/22/25 08:39 Insulin Glargine (Lantus) 5 Unit/0.05 Ml (Per 5 Units) SC 05/22/25 07:29 Not Given QDAY JUANITA Insulin Human Lispro 0 unit 04/22/25 07:30 04/22/25 11:54 Insulin Lispro (Admelog) 1 Unit/0.01 Ml Unit SC 05/22/25 07:29 1 unit AC JUANITA Administration Protocol Morphine Sulfate 1 mg 04/22/25 07:11 Morphine Sulf Inj 10 Mg/Ml Vial IVP 04/26/25 11:07 Q6HR PRN PAIN SCALE 4-10(Mod-Sev Ondansetron HCl 4 mg 04/21/25 11:08 Ondansetron Inj 2 Mg/Ml Inj 2 Ml IVP 05/21/25 11:07 Q6H PRN NAUSEA OR VOMITING Protocol Pantoprazole Sodium 40 mg 04/21/25 21:00 04/22/25 08:49 Pantoprazole Inj 40 Mg Vial IVP 05/21/25 20:59 40 mg Q12HR JUANITA Administration Polyethylene Glycol 17 gm 04/22/25 10:01 Polyethylene Glycol 17 Gm Packet PO 05/23/25 08:59 QDAY PRN CONSTIPATION Sennosides 1 tab 04/23/25 09:00 Senna Tablet PO 05/23/25 08:59 QDAY JUANITA Protocol Plan Francisco J Dixon is a 70-year-old male with a past medical history of recurrent pancreatitis, CAD s/p stent placement in [place] (2018, early ), hypertension, hyperlipidemia, and history of alcohol use who is admitted for management/evaluation of DKA, pancreatitis, and dark stools. #New onset diabetes (A1c 11.9%) #New onset DKA, resolved Presented with AG of 20 with generalized abdominal pain. pH 7.33 with pCO2 of 19, beta-hydroxybutyrate 5.8 with UA showing 4+ glucose and 3+ ketones. AG 9 close, pH on VBG 7.4, and bicarb within normal limits. ? Glargine 25 units daily ? SSI ? Clear liquid diet and n.p.o. after midnight for EGD, will start carb consistent low afterwards #Melena #? UGIB Diffuse abdominal pain for last 30 days with associated decreased appetite and 20 lb weight loss. FOBT positive. Hemoglobin on admission 15.9 and downtrending, could be hemodilution from IVF vs UGIB. Last colonoscopy > 10 years ago and last EGD in 2021 that showed portal gastropathy. ? GI consulted, appreciate recommendations ? Pending EGD ? Protonix 40 mg IV twice daily ? Keep hemoglobin > 8 given history of CAD #Acute kidney injury, resolved #Hypophosphatemia Likely prerenal in setting of DKA. ? Neutra-Phos 1 packet twice daily scheduled ? Na/phos at 62.5 cc/hr prn #Recurrent pancreatitis #? Pancreatic insufficiency #? Malignancy Likely secondary to history of EtOH consumption and smoking and suspect pancratic insufficiency as patient presents with DKA. Initial lipase 279 and downtrended to 174. CT A/P showed edema around pancreas and pancreatic calcifications due to prior episodes but no lesions suspicious for malignancy. He is also noted to have had 20 lb weight loss within the last month that he attributes to decreased appetite and abdominal pain that is associated with eating. ? Advance diet as tolerated after EGD ? Follow-up CA 19-9 and CEA #History of CAD s/p stents #Hyperlipidemia ? Clopidogrel held in setting of possible GIB ? Simvastatin 20 mg daily #Hypertension ? Lisinopril 5 mg daily ? Metoprolol 25 mg twice dily #Smoking history 32-osff-diem history, currently smokes ? Duonebs prn for wheezing/SOB Hospital management: Disposition: DKA now resolved, pancreatitis, possible malignancy Fluids: none Diet: clear liquid, NPO after midnight for EGD Lines: PIV DVT prophylaxis: SCDs CODE STATUS: full code ----- Plan discussed with attending physician Dr. Jeanne Gilbert MD PGY-1 Internal Medicine Attending Provider Attestation/Addendum I attest that I was physically present for the evaluation, physical examination, lab and imaging review of the patient with the residents. I discussed the case with the residents and agree with the findings and plans of care as documented above. Patient is a 70 years old male with past medical history of hypertension, hyperlipidemia, CAD status post stents who presented to the ED with complaint of abdominal tenderness and black stool. He was found to have DKA and was 04/21/2025. Patient received IV insulin with DKA protocol with resolution of DKA. He was transitioned to subcutaneous insulin and transferred to medical floor for further management. At bedside today, patient states he is feeling better compared to yesterday. Vital signs are stable. WBC count has down trended. Anion gap closed, glucoses 150 this morning. Patient is currently receiving Lantus 25 daily along with sliding scale. Hemoglobin A1c is 11.9 on this visit compared to 5.7 in 2022. Patient had never been diagnosed with, likely secondary to recurrent pancreatitis. He still has mild tenderness around epigastrium, CT chest/abdomen/pelvis has been ordered, awaiting read. And CRP levels are elevated. Lipase level is mildly high at 174. Cultures have been negative for 24-hour. Patient is currently on full liquid diet to be n.p.o. after midnight for possible EGD. Send also has been losing weight, has long history of smoking. Noted to have low phosphate, repleted accordingly. Magi Angel MD
[2025-04-22] MEDS: HEPARIN SOD INJ 5000 UNIT/ML VIAL SC ×2 (13:00→22:15)
--- NOTE | 2025-04-22 15:41 | PC.NURSE ---
Transfer orders to lower level of care were received to transfer pt to med/tele. Pt is alert and oreinted x3, verbalized understanidng of transfer to floor. Hand off report given to Kirk FONSECA. Pt transferred via w/c and monitor to room 358. No s/s of distress
[2025-04-22] MEDS: NAPH,KPH MBDB 1 PACKET (1.5 GM) PO (20:02)
[2025-04-22] MEDS: ATORVASTATIN CALCIUM 10 MG TABLET PO (20:02)
[2025-04-23] VITALS (17 sets, daily range): BP systolic 110–153; BP diastolic 70–101; PULSE 70–109; RESP 13–98; TEMP 36.1–36.3; O2SAT 94–100
[2025-04-23] MEDS: MORPHINE SULF INJ 10 MG/ML VIAL IVP ×3 (05:05→21:30)
[2025-04-23] MEDS: HEPARIN SOD INJ 5000 UNIT/ML VIAL SC ×3 (05:07→21:30)
[2025-04-23 06:56] LABS: Basophils # (Auto) 0.1 Thou/mm3 (0.0-0.2); Basophils % (Auto) 1 % (0-2.5); Eosinophils # (Auto) 0.2 Thou/mm3 (0.0-0.5); Eosinophils % (Auto) 3 % (0-10); Hematocrit 35.8 % (41.0-53.0); Hemoglobin 12.6 g/dL (13.5-16.0); Immature Granulocytes % (Auto) 1 % (0-0); Immature Granulocytes Auto 0.03 Thou/mm3 (0.00-0.00); Lymphocytes # (Auto) 0.9 Thou/mm3 (1.0-4.8); Lymphocytes % (Auto) 15 % (10-50); Mean Corpuscular HGB Conc 35.2 g/dl (31.0-37.0); Mean Corpuscular Hemoglobin 27.8 pg (25.0-35.0); Mean Corpuscular Volume 79 fL (80-100); Monocytes # (Auto) 0.7 Thou/mm3 (0.0-0.8); Monocytes % (Auto) 12 % (0-12); Neutrophils % (Auto) 68 % (37-80); Nucleated Red Blood Cell % 0 /100 WBC (0); Platelet Count 161 Thou/mm3 (140-440); RDW Standard Deviation 38.5 fL (35.1-43.9); Red Blood Count 4.53 Miln/mm3 (4.50-5.90); White Blood Count 5.9 Thou/mm3 (3.8-10.6)
[2025-04-23 06:57] LABS: Alanine Aminotransferase 11 U/L (10-49); Albumin, Serum 3.6 gm/dL (3.4-4.8); Albumin/Globulin Ratio 1.6 (1.2-2.2); Alkaline Phosphatase 96 U/L (46-116); Anion Gap 10 (7-16); Aspartate Amino Transferase 17 U/L (0-34); BUN/Creatinine Ratio 9 Ratio (12-20); Bilirubin,Total 0.3 mg/dL (0.3-1.2); Blood Urea Nitrogen 7 mg/dL (9-23); Calcium 8.6 mg/dL (8.3-10.6); Calcium (Corrected) 8.9 mg/dL (8.5-10.1); Carbon Dioxide 27.2 mMol/L (20.0-31.0); Chloride 100 mMol/L (98-107); Creatinine (Component) 0.8 mg/dL (0.6-1.3); Estimated Creatinine Clearance 68.2 mL/min (>60); Globulin 2.3 gm/dL (2.3-3.5); Glucose 199 mg/dL (74-106); Magnesium 1.4 mg/dL (1.6-2.6); Osmolality,Calculated 277 (275-295); Phosphorous 2.3 mg/dL (2.4-5.1); Potassium 3.6 mMol/L (3.4-5.1); Sodium 137 mMol/L (136-145); Total Protein 5.9 gm/dL (5.7-8.2); eGFR > 60 See Note
[2025-04-23] MEDS: cefTRIAXone/D5w 1gm IV premix 1 GM/50 ML BAG IV (08:30)
[2025-04-23] MEDS: PANTOPRAZOLE INJ 40 MG VIAL IVP ×2 (08:31→20:50)
--- NOTE | 2025-04-23 09:56 | PD.RESPRO ---
Documentation for date of: 04/23/25 Subjective Subjective Interval history: No acute overnight events. Seen and examined at bedside patient continues to have a gastric abdominal pain, likely secondary to gastric ulcer secondary to NSAID use for pancreatitis. Denies nausea, vomiting, no bowel movements as he has not been able to tolerate much p.o. Vital signs stable. CBC unremarkable, CHEM panel showed low phosphorus and magnesium which were repleted as well as glucose of 199 and fingerstick of 181. Will continue glargine 25 units daily as patient is n.p.o. for pending EGD. Exam Vital Signs Temp Pulse Resp BP Pulse Ox O2 Del Method 96.9 F 96 18 138/81 H 98 Room Air 04/23/25 04:00 04/23/25 07:58 04/23/25 07:58 04/23/25 04:00 04/23/25 07:58 04/23/25 04:00 Narrative Exam General: underweight, AOx3, no acute distress, able to speak full sentences HEENT: NC/AT, mucous membranes moist, bilateral sclera anicteric Cardiovascular: regular rate and rhythm, S1/S2 present, no murmurs appreciated Pulmonary: clear to auscultation bilaterally, no rales/rhonchi/wheezes Abdominal: tender in LUQ and epigastrium, soft, non-distended, no rebound/guarding, normal bowel sounds present Musculoskeletal: normal ROM, no peripheral edema Skin: warm and dry, intact, no rashes Neuro: CN II-XII intact, no focal deficits Objective Labs 04/23/25 05:41 04/23/25 05:41 Labs: Laboratory Results - last 24 hr 04/23/25 05:41 WBC 5.9 RBC 4.53 Hgb 12.6 L Hct 35.8 L MCV 79 L MCH 27.8 MCHC 35.2 RDW Std Deviation 38.5 Plt Count 161 Neut % (Auto) 68 Lymph % (Auto) 15 [place] % (Auto) 12 Eos % (Auto) 3 Baso % (Auto) 1 Neut # (Auto) 4.0 Lymph # (Auto) 0.9 L [place] # (Auto) 0.7 Eos # (Auto) 0.2 Baso # (Auto) 0.1 Immature Gran # (Auto) 0.03 H Absolute Nucleated RBC 0.00 Immature Gran % 1 H Nucleated RBC % 0 Sodium 137 Potassium 3.6 Chloride 100 Carbon Dioxide 27.2 Anion Gap 10 BUN 7 L Creatinine 0.8 Estim Creat Clear Calc 68.2 eGFR > 60 BUN/Creatinine Ratio 9 L Glucose 199 H Calculated Osmolality 277 Calcium 8.6 Corrected Calcium 8.9 Phosphorus 2.3 L Magnesium 1.4 L Total Bilirubin 0.3 AST 17 ALT 11 Alkaline Phosphatase 96 Total Protein 5.9 Albumin 3.6 Globulin 2.3 Albumin/Globulin Ratio 1.6 ABG Interpretation ABG results: 04/21/25 04/21/25 04/21/25 08:52 11:28 16:26 ABG pH 7.33 L ABG pCO2 19 L* ABG pO2 96 ABG HCO3 10 L ABG O2 Saturation 98 ABG Base Excess -14 L VBG pH 7.26 L 7.37 VBG pCO2 37 34 L VBG pO2 26 31 VBG Base Excess -10 L -5 L 04/21/25 04/22/25 04/22/25 20:36 00:07 04:52 ABG pH ABG pCO2 ABG pO2 ABG HCO3 ABG O2 Saturation ABG Base Excess VBG pH 7.31 L 7.35 7.38 VBG pCO2 37 38 34 L VBG pO2 35 37 25 VBG Base Excess -7 L -4 L -4 L 04/22/25 07:59 ABG pH ABG pCO2 ABG pO2 ABG HCO3 ABG O2 Saturation ABG Base Excess VBG pH 7.44 VBG pCO2 31 L VBG pO2 50 D VBG Base Excess -2 Quality Measures Quality Measures none Advance care planning discussed with:: patient Assessment & Plan Assessment Current Active Medications: Generic Name Dose Route Start Last Admin Trade Name Kathi PRN Reason Stop Dose Admin Acetaminophen 650 mg 04/21/25 11:08 Acetaminophen 325 Mg Tablet PO 05/21/25 11:07 Q6H PRN Mild Pain 1-3 or fever >100.3 Albuterol/Ipratropium 3 ml 04/21/25 16:47 Albuterol/Ipratropium (Duoneb) Rt Meme 3 Ml Nebu INH 05/21/25 16:46 Q6HRRT PRN SHORTNESS OF BREATH OR WHEEZE Atorvastatin Calcium 10 mg 04/22/25 21:00 04/22/25 20:02 Atorvastatin Calcium 10 Mg Tablet PO 05/22/25 20:59 10 mg 2100 JUANTIA Administration Dextrose 25 ml 04/21/25 11:13 Dextrose 50%-Water Inj 50 Ml Syringe IV [id number] PRN Blood Sugar - Low Dextrose 25 ml 04/22/25 06:16 Dextrose 50%-Water Inj 50 Ml Syringe IV 05/22/25 06:15 Q15MIN PRN BG 50-70 responsive npo pt Glucagon 1 mg 04/22/25 06:16 Glucagon Inj 1 Mg Vial IM Q15MIN PRN BG <70, and no IV access Heparin Sodium (Porcine) 5,000 unit 04/22/25 14:00 04/23/25 05:07 Heparin Sod Inj 5000 Unit/Ml Vial SC 05/06/25 13:59 5,000 unit Q8HR JUANITA Administration Sodium Phosphate 15 mmol/ 255 mls @ 62.5 mls/hr 04/21/25 11:13 Sodium Chloride IV 05/21/25 11:12 .Q4H5M PRN Phosphate <= 1mg/dL and K> than 5.3 Ceftriaxone Sodium/Dextrose 1 gm in 50 mls @ 100 mls/hr 04/21/25 17:11 04/23/25 08:30 Rocephin/D5w 1gm Iv Premix IV 04/28/25 17:10 100 mls/hr QDAY JUANITA Administration Magnesium Sulfate 4 gm in 50 mls @ 12.5 mls/hr 04/23/25 07:42 Magnesium Sulfate Ivpb IV 04/23/25 11:41 X1 ONE Lactated Ringer's 1,000 mls @ 75 mls/hr 04/23/25 08:53 Lactated Ringers IV 05/23/25 08:52 .[id number] [facility] Insulin Glargine 25 unit 04/22/25 07:30 04/22/25 08:39 Insulin Glargine (Lantus) 5 Unit/0.05 Ml (Per 5 Units) SC 05/22/25 07:29 Not Given QDAY [facility] Insulin Human Lispro 0 unit 04/23/25 06:00 04/23/25 05:16 Insulin Lispro (Admelog) 1 Unit/0.01 Ml Unit SC 05/23/25 05:59 Not Given Q6HR [facility] Protocol Lisinopril 5 mg 04/23/25 09:00 Lisinopril 2.5 Mg Tablet PO 05/23/25 08:59 QDAY JUANITA Metoprolol Tartrate 25 mg 04/23/25 13:45 Metoprolol Tartrate 25 Mg Tablet PO 05/23/25 13:44 Q12H JUANITA Morphine Sulfate 1 mg 04/22/25 07:11 04/23/25 05:05 Morphine Sulf Inj 10 Mg/Ml Vial IVP 04/26/25 11:07 1 mg Q6HR PRN Administration PAIN SCALE 4-10(Mod-Sev Ondansetron HCl 4 mg 04/21/25 11:08 Ondansetron Inj 2 Mg/Ml Inj 2 Ml IVP 05/21/25 11:07 Q6H PRN NAUSEA OR VOMITING Protocol Pantoprazole Sodium 40 mg 04/21/25 21:00 04/23/25 08:31 Pantoprazole Inj 40 Mg Vial IVP 05/21/25 20:59 40 mg Q12HR JUANITA Administration Polyethylene Glycol 17 gm 04/22/25 10:01 Polyethylene Glycol 17 Gm Packet PO 05/23/25 08:59 QDAY PRN CONSTIPATION Potassium Phos/Sodium Phos 1 packet 04/22/25 21:00 04/22/25 20:02 Naph,Replaced By [facility] Mbdb 1 Packet (1.5 Gm) PO 04/25/25 20:59 1 packet BID JUANITA Administration Sennosides 1 tab 04/23/25 09:00 Senna Tablet PO 05/23/25 08:59 QDAY JUANITA Protocol Plan Francisco J Dixon is a 70-year-old male with a past medical history of recurrent pancreatitis, CAD s/p stent placement in [place] (2018, early ), hypertension, hyperlipidemia, and history of alcohol use who is admitted for management/evaluation of DKA, pancreatitis, and dark stools. #New onset diabetes (A1c 11.9%) #New onset DKA, resolved Presented with AG of 20 with generalized abdominal pain. pH 7.33 with pCO2 of 19, beta-hydroxybutyrate 5.8 with UA showing 4+ glucose and 3+ ketones. AG 9 close, pH on VBG 7.4, and bicarb within normal limits. ? Glargine 25 units daily ? SSI ? Clear liquid diet and n.p.o. after midnight for EGD, will start carb consistent low afterwards #Melena #? UGIB #? Gastric ulcers Diffuse abdominal pain for last 30 days with associated decreased appetite and 20 lb weight loss. FOBT positive. Hemoglobin on admission 15.9 and downtrending, could be hemodilution from IVF vs UGIB. Last colonoscopy > 10 years ago and last EGD in 2021 that showed portal gastropathy. ? GI consulted, appreciate recommendations ? Pending EGD ? Protonix 40 mg IV twice daily ? Keep hemoglobin > 8 given history of CAD #Acute kidney injury, resolved #Hypophosphatemia #Hypomagnesemia Likely prerenal in setting of DKA. ? Neutra-Phos 1 packet twice daily scheduled ? Na/phos at 62.5 cc/hr prn ? Monitor electrolytes and replete as needed ? LR at 75 cc/hr #Recurrent pancreatitis #? Pancreatic insufficiency #? Malignancy Likely secondary to history of EtOH consumption and smoking and suspect pancratic insufficiency as patient presents with DKA. Initial lipase 279 and downtrended to 174. CT A/P showed edema around pancreas and pancreatic calcifications due to prior episodes but no lesions suspicious for malignancy. He is also noted to have had 20 lb weight loss within the last month that he attributes to decreased appetite and abdominal pain that is associated with eating. ? Advance diet as tolerated after EGD ? Follow-up CA 19-9 and CEA ? LR at 75 cc/hr #History of CAD s/p stents #Heavy coronary artery calcification as seen on CT #Hyperlipidemia ? Clopidogrel held in setting of possible GIB ? Simvastatin 20 mg daily ? Follow-up outpatient for further management #Hypertension ? Lisinopril 5 mg daily ? Metoprolol 25 mg twice dily #Smoking history 70-buct-[id number] history, currently smokes ? Duonebs prn for wheezing/SOB #Cholelithiasis as seen on CT ? Follow-up outpatient for further management Hospital management: Disposition: DKA now resolved, pancreatitis, possible malignancy Fluids: LR at 75 cc/hr Diet: clear liquid, NPO after midnight for EGD Lines: PIV DVT prophylaxis: SCDs CODE STATUS: full code ----- Plan discussed with attending physician Dr. Jeanne Gilbert MD PGY-1 Internal Medicine Attending Provider Attestation/Addendum I attest that I was physically present for the evaluation, physical examination, lab and imaging review of the patient with the residents. I discussed the case with the residents and agree with the findings and plans of care as documented above. At bedside today, patient states he is feeling well and does not have any complaints. Vital signs are stable. Hemoglobin is 12.6. CT chest/abdomen/pelvis shows cholelithiasis, coronary artery calcification and pancreatitis. Magnesium level was 1.4, repleted accordingly. Also started on gentle IV hydration. Awaiting EGD with gastroenterology. Magi Angel MD
--- NOTE | 2025-04-23 10:34 | PC.SS ---
Francisco J Dixon is a 70-year-old male admitted to [facility] for DKA. SS conducted bedside contact with the patient to complete initial assessment and to discuss discharge planning. Role and reason explained. Patient confirmed demographic information. Patient identifies his son Andrew Friedman [phone] as his surrogate decision maker. Pt states he is able to complete all ADL?s independent. Pt does not possesses any DME. Pts PCP is [facility], Aydee Wu. Pharmacy of choice is [facility]. Discharge options discussed and the pt wishes to return home. ?Pt has his vehicle here and wishes to transport himself home upon DC. No further intervention required at this time, social welfare administrator would be available to address any further concerns. DC Plan: Home Contact: Andrew Friedman [phone] Address: Confirmed on face sheet PCP: Lorena Wu
--- NOTE | 2025-04-23 10:55 | PC.DIETICIAN ---
Dietitian note: If insulin is ordered at d/c, pt prefers [employer] with reader. He orders dry food via mail and his meds via [employer] mail. Rarely come to town, uses [facility]. RD to follow.
[2025-04-23] MEDS: Magnesium Sulfate 4 GM Ivpb 4 GM/50 ML BAG IV (11:00)
[2025-04-23] MEDS: RINGERS LACTATED 1000 ML 1,000 ML 75 ML IV (11:00)
--- NOTE | 2025-04-23 13:51 | SUR.PHASEI ---
1306 patient to pacu via ЕКАТЕРИНА denise, no distress noted, able to follow simple commands, drifts to sleep, easily aroused with verbal stimuli, will monitor 1326 patient to med/surg in stable condiiton
--- NOTE | 2025-04-23 14:41 | PC.SS ---
Rounding: Pending colonoscopy, will return home upon DC
[2025-04-23] MEDS: NA SU/NAHCO3/KC/PEG (Golytely) 4,000 ML BTL 4000 ML PO (14:59)
[2025-04-23] MEDS: Lisinopril 2.5 MG TABLET 5 MG PO (15:00)
[2025-04-23] MEDS: NAPH,KPH MBDB 1 PACKET (1.5 GM) PO ×2 (15:00→20:51)
[2025-04-23] MEDS: SENNA TABLET 1 TAB PO (15:01)
[2025-04-23] MEDS: METOPROLOL TARTRATE 25 MG TABLET PO (15:01)
[2025-04-23] MEDS: INSULIN LISPRO (AdmeLOG) 1 UNIT/0.01 ML UNIT SC (18:01)
[2025-04-23] MEDS: ATORVASTATIN CALCIUM 10 MG TABLET PO (20:50)
[2025-04-23 23:00] LABS: Carcinoembryonic Antigen 2.7 ng/mL (0.0-5.0)
[2025-04-24] VITALS (25 sets, daily range): BP systolic 112–145; BP diastolic 73–90; PULSE 74–95; RESP 15–97; TEMP 36.1–36.7; O2SAT 96–100
[2025-04-24] MEDS: INSULIN LISPRO (AdmeLOG) 1 UNIT/0.01 ML UNIT SC ×2 (00:35→12:29)
[2025-04-24] MEDS: METOPROLOL TARTRATE 25 MG TABLET PO (00:47)
[2025-04-24] MEDS: MORPHINE SULF INJ 10 MG/ML VIAL IVP ×2 (04:13→10:21)
[2025-04-24 05:42] LABS: Basophils # (Auto) 0.1 Thou/mm3 (0.0-0.2); Basophils % (Auto) 1 % (0-2.5); Eosinophils # (Auto) 0.2 Thou/mm3 (0.0-0.5); Eosinophils % (Auto) 3 % (0-10); Hematocrit 35.7 % (41.0-53.0); Hemoglobin 12.6 g/dL (13.5-16.0); Immature Granulocytes % (Auto) 1 % (0-0); Immature Granulocytes Auto 0.04 Thou/mm3 (0.00-0.00); Lymphocytes % (Auto) 17 % (10-50); Mean Corpuscular HGB Conc 35.3 g/dl (31.0-37.0); Mean Corpuscular Hemoglobin 27.5 pg (25.0-35.0); Mean Corpuscular Volume 78 fL (80-100); Monocytes # (Auto) 0.6 Thou/mm3 (0.0-0.8); Monocytes % (Auto) 10 % (0-12); Neutrophils # (Auto) 4.1 Thou/mm3 (1.8-7.7); Neutrophils % (Auto) 68 % (37-80); Nucleated Red Blood Cell % 0 /100 WBC (0); Platelet Count 168 Thou/mm3 (140-440); RDW Standard Deviation 37.7 fL (35.1-43.9); Red Blood Count 4.58 Miln/mm3 (4.50-5.90)
[2025-04-24] MEDS: RINGERS LACTATED 1000 ML 1,000 ML 75 ML IV ×2 (05:49→23:44)
[2025-04-24 06:07] LABS: Alanine Aminotransferase 14 U/L (10-49); Albumin, Serum 3.8 gm/dL (3.4-4.8); Albumin/Globulin Ratio 1.4 (1.2-2.2); Alkaline Phosphatase 95 U/L (46-116); Anion Gap 12 (7-16); Aspartate Amino Transferase 17 U/L (0-34); BUN/Creatinine Ratio 8 Ratio (12-20); Bilirubin,Total 0.3 mg/dL (0.3-1.2); Blood Urea Nitrogen 6 mg/dL (9-23); Calcium 9.7 mg/dL (8.3-10.6); Calcium (Corrected) 9.9 mg/dL (8.5-10.1); Carbon Dioxide 26.9 mMol/L (20.0-31.0); Chloride 96 mMol/L (98-107); Creatinine (Component) 0.8 mg/dL (0.6-1.3); Estimated Creatinine Clearance 68.2 mL/min (>60); Globulin 2.7 gm/dL (2.3-3.5); Glucose 170 mg/dL (74-106); Osmolality,Calculated 271 (275-295); Phosphorous 2.4 mg/dL (2.4-5.1); Potassium 3.2 mMol/L (3.4-5.1); Sodium 135 mMol/L (136-145); Total Protein 6.5 gm/dL (5.7-8.2); eGFR > 60 See Note
--- NOTE | 2025-04-24 09:05 | ESPR_ITS ---
<Statement entered by Gian Sutton MD - 04/25/25 07:41> 70-year-old male with hypertension, hyperlipidemia and subsequent coronary artery disease status post stenting and extensive remote history of alcohol use disorder (last drink 6 months ago) with multiple admissions in the past for recurrent pancreatitis who presented to the ER with generalized weakness found to have diabetic ketoacidosis with hemoglobin A1c of 11.9 and melena. During course of hospitalization, patient diabetes had been controlled, as for melena patient underwent EGD with findings of gastritis plan for colonoscopy. As for new onset diabetes, there was a concern for possible pancreatic malignancy however underwent MRCP and CT abdomen with no evidence of any mass and likely patient new onset diabetes in a 70-year-old likely related to pancreatic insufficiency from chronic alcohol use. As of now, patient is pending colonoscopy and once done we will consider discharging the patient in the next 24 hours.I reviewed above note and agree with findings and plans. I have also personally examined the patient with medicine team and went over assessment and plan with medical team including agriculture intern and resident physician. <Statement entered by Beth Arevalo MD - 04/24/25 14:31> Patient seen and examined at bedside. No acute overnight events reported. Patient's pain continues to be present but controlled with IV morphine. Patient is scheduled colonoscopy today, and is currently on GoLytely. Will also get additional imaging to rule out possible cancer. CA 19?19 pending, CEA within normal limits. I discussed with and supervised the agriculture intern physician who took care of this patient. I personally saw and examined the patient and discussed the assessment and plan with the entire medicine team, including my attending Dr. Sutton, I agree with most of the assessment and plan as documented below Beth Arevalo M.D. PGY-2 Disclaimer: Despite multiple revisions, due to the dictation software being used, the document bellow may not be free of grammatical errors including phonetic/typographic errors. However, this does not deter from our commitment to providing health care in the patient's best interest in mind. Documentation for date of: 04/24/25 Subjective Subjective Interval history: No acute overnight events. Seen and examined at bedside and patient continues to endorse 7/10 abdominal pain consistentl, currently on morphine. Will begin switching pain medications from IV to PO given anticipation of discharge within next 24-48 hours. EGD did not show any obvious sources of bleeding that could account for patient's melena and thus prepping for colonoscopy. Additionally, will order MRI abdomen with and without contrast to further evaluate for possible malignancies. CEA normal and CA 19-9 pending. Exam Vital Signs Temp Pulse Resp BP Pulse Ox O2 Del Method O2 Flow Rate 97.1 F 82 18 112/76 97 Room Air 3 04/24/25 08:00 04/24/25 08:00 04/24/25 08:00 04/24/25 08:00 04/24/25 08:00 04/24/25 08:00 04/23/25 16:00 Narrative Exam General: underweight, AOx3, no acute distress, able to speak full sentences HEENT: NC/AT, mucous membranes moist, bilateral sclera anicteric Cardiovascular: regular rate and rhythm, S1/S2 present, no murmurs appreciated Pulmonary: clear to auscultation bilaterally, no rales/rhonchi/wheezes Abdominal: tender in LUQ and epigastrium, soft, non-distended, no rebound/guarding, normal bowel sounds present Musculoskeletal: normal ROM, no peripheral edema Skin: warm and dry, intact, no rashes Neuro: CN II-XII intact, no focal deficits Objective Labs 04/24/25 05:15 04/24/25 05:15 Labs: Laboratory Results - last 24 hr 04/22/25 04/24/25 04:52 05:15 WBC 6.0 RBC 4.58 Hgb 12.6 L Hct 35.7 L MCV 78 L MCH 27.5 MCHC 35.3 RDW Std Deviation 37.7 Plt Count 168 Neut % (Auto) 68 Lymph % (Auto) 17 [place] % (Auto) 10 Eos % (Auto) 3 Baso % (Auto) 1 Neut # (Auto) 4.1 Lymph # (Auto) 1.0 [place] # (Auto) 0.6 Eos # (Auto) 0.2 Baso # (Auto) 0.1 Immature Gran # (Auto) 0.04 H Absolute Nucleated RBC 0.00 Immature Gran % 1 H Nucleated RBC % 0 Sodium 135 L Potassium 3.2 L Chloride 96 L Carbon Dioxide 26.9 Anion Gap 12 BUN 6 L Creatinine 0.8 Estim Creat Clear Calc 68.2 eGFR > 60 BUN/Creatinine Ratio 8 L Glucose 170 H Calculated Osmolality 271 L Calcium 9.7 Corrected Calcium 9.9 Phosphorus 2.4 Magnesium 2.0 Total Bilirubin 0.3 AST 17 ALT 14 Alkaline Phosphatase 95 Total Protein 6.5 Albumin 3.8 Globulin 2.7 Albumin/Globulin Ratio 1.4 Carcinoembryonic Ag 2.7 ABG Interpretation ABG results: 04/21/25 04/21/25 04/21/25 08:52 11:28 16:26 ABG pH 7.33 L ABG pCO2 19 L* ABG pO2 96 ABG HCO3 10 L ABG O2 Saturation 98 ABG Base Excess -14 L VBG pH 7.26 L 7.37 VBG pCO2 37 34 L VBG pO2 26 31 VBG Base Excess -10 L -5 L 04/21/25 04/22/25 04/22/25 20:36 00:07 04:52 ABG pH ABG pCO2 ABG pO2 ABG HCO3 ABG O2 Saturation ABG Base Excess VBG pH 7.31 L 7.35 7.38 VBG pCO2 37 38 34 L VBG pO2 35 37 25 VBG Base Excess -7 L -4 L -4 L 04/22/25 07:59 ABG pH ABG pCO2 ABG pO2 ABG HCO3 ABG O2 Saturation ABG Base Excess VBG pH 7.44 VBG pCO2 31 L VBG pO2 50 D VBG Base Excess -2 Quality Measures Quality Measures none Advance care planning discussed with:: patient Assessment & Plan Assessment Current Active Medications: Generic Name Dose Route Start Last Admin Trade Name Freq PRN Reason Stop Dose Admin Acetaminophen 650 mg 04/21/25 11:08 Acetaminophen 325 Mg Tablet PO 05/21/25 11:07 Q6H PRN Mild Pain 1-3 or fever >100.3 Albuterol/Ipratropium 3 ml 04/21/25 16:47 Albuterol/Ipratropium (Duoneb) Rt Meme 3 Ml Nebu INH 05/21/25 16:46 Q6HRRT PRN SHORTNESS OF BREATH OR WHEEZE Atorvastatin Calcium 10 mg 04/22/25 21:00 04/23/25 20:50 Atorvastatin Calcium 10 Mg Tablet PO 05/22/25 20:59 10 mg 2100 JUANITA Administration Dextrose 25 ml 04/21/25 11:13 Dextrose 50%-Water Inj 50 Ml Syringe IV [id number] PRN Blood Sugar - Low Dextrose 25 ml 04/22/25 06:16 Dextrose 50%-Water Inj 50 Ml Syringe IV 05/22/25 06:15 Q15MIN PRN BG 50-70 responsive npo pt Glucagon 1 mg 04/22/25 06:16 Glucagon Inj 1 Mg Vial IM Q15MIN PRN BG <70, and no IV access Heparin Sodium (Porcine) 5,000 unit 04/22/25 14:00 04/24/25 05:25 Heparin Sod Inj 5000 Unit/Ml Vial SC 05/06/25 13:59 Not Given Q8HR JUANITA Sodium Phosphate 15 mmol/ 255 mls @ 62.5 mls/hr 04/21/25 11:13 Sodium Chloride IV 05/21/25 11:12 .Q4H5M PRN Phosphate <= 1mg/dL and K> than 5.3 Ceftriaxone Sodium/Dextrose 1 gm in 50 mls @ 100 mls/hr 04/21/25 17:11 04/23/25 08:30 Rocephin/D5w 1gm Iv Premix IV 04/28/25 17:10 100 mls/hr QDAY JUANITA Administration Lactated Ringer's 1,000 mls @ 75 mls/hr 04/23/25 08:53 04/24/25 05:49 Lactated Ringers IV 05/23/25 08:52 75 mls/hr .[id number] JUANITA Administration Insulin Glargine 25 unit 04/22/25 07:30 04/23/25 14:51 Insulin Glargine (Lantus) 5 Unit/0.05 Ml (Per 5 Units) SC 05/22/25 07:29 Not Given QDAY [facility] Insulin Human Lispro 0 unit 04/23/25 06:00 04/24/25 00:35 Insulin Lispro (Admelog) 1 Unit/0.01 Ml Unit SC 05/23/25 05:59 2 unit Q6HR JUANITA Administration Protocol Lisinopril 5 mg 04/23/25 09:00 04/23/25 15:00 Lisinopril 2.5 Mg Tablet PO 05/23/25 08:59 5 mg QDAY JUANITA Administration Metoprolol Tartrate 25 mg 04/23/25 13:45 04/24/25 00:47 Metoprolol Tartrate 25 Mg Tablet PO 05/23/25 13:44 25 mg Q12H JUANITA Administration Morphine Sulfate 1 mg 04/22/25 07:11 04/24/25 04:13 Morphine Sulf Inj 10 Mg/Ml Vial IVP 04/26/25 11:07 1 mg Q6HR PRN Administration PAIN SCALE 4-10(Mod-Sev Ondansetron HCl 4 mg 04/21/25 11:08 Ondansetron Inj 2 Mg/Ml Inj 2 Ml IVP 05/21/25 11:07 Q6H PRN NAUSEA OR VOMITING Protocol Pantoprazole Sodium 40 mg 04/21/25 21:00 04/23/25 20:50 Pantoprazole Inj 40 Mg Vial IVP 05/21/25 20:59 40 mg Q12HR JUANITA Administration Polyethylene Glycol 17 gm 04/22/25 10:01 Polyethylene Glycol 17 Gm Packet PO 05/23/25 08:59 QDAY PRN CONSTIPATION Potassium Phos/Sodium Phos 1 packet 04/22/25 21:00 04/23/25 20:51 Naph,h Mbdb 1 Packet (1.5 Gm) PO 04/25/25 20:59 1 packet BID JUANITA Administration Sennosides 1 tab 04/23/25 09:00 04/23/25 15:01 Senna Tablet PO 05/23/25 08:59 1 tab QDAY JUANITA Administration Protocol Plan Farncisco J Dixon is a 70-year-old male with a past medical history of recurrent pancreatitis, CAD s/p stent placement in [place] (2018, early ), hypertension, hyperlipidemia, and history of alcohol use who is admitted for management/evaluation of DKA, pancreatitis, and dark stools. #New onset diabetes (A1c 11.9%) #New onset DKA, resolved Presented with AG of 20 with generalized abdominal pain. pH 7.33 with pCO2 of 19, beta-hydroxybutyrate 5.8 with UA showing 4+ glucose and 3+ ketones. AG 9 close, pH on VBG 7.4, and bicarb within normal limits. ? Glargine 25 units daily ? SSI #Melena #? UGIB #? Gastric ulcers Diffuse abdominal pain for last 30 days with associated decreased appetite and 20 lb weight loss. FOBT positive. Hemoglobin on admission 15.9 and downtrending, could be hemodilution from IVF vs UGIB. Last colonoscopy > 10 years ago and last EGD in 2021 that showed portal gastropathy. EGD showed normal esophagus, mild inflammation around gastric antrum, and second portion of duodenum was normal. ? GI consulted, appreciate recommendations ? Pending colonoscopy ? Protonix 40 mg IV twice daily ? Keep hemoglobin > 8 given history of CAD #Acute kidney injury, resolved #Hypophosphatemia #Hypomagnesemia #Hypokalemia Likely prerenal in setting of DKA. ? Neutra-Phos 1 packet twice daily scheduled ? Na/phos at 62.5 cc/hr prn ? Monitor electrolytes and replete as needed ? LR at 75 cc/hr #Recurrent pancreatitis #? Pancreatic insufficiency #? Malignancy Likely secondary to history of EtOH consumption and smoking and suspect pancratic insufficiency as patient presents with DKA. Initial lipase 279 and downtrended to 174. CT A/P showed edema around pancreas and pancreatic calcifications due to prior episodes but no lesions suspicious for malignancy. He is also noted to have had 20 lb weight loss within the last month that he attributes to decreased appetite and abdominal pain that is associated with eating. ? Advance diet as tolerated after EGD ? Follow-up CA 19-9 and CEA (normal) ? Follow-up MRI abdomen to further evaluate pancreas ? LR at 75 cc/hr #History of CAD s/p stents #Heavy coronary artery calcification as seen on CT #Hyperlipidemia ? Clopidogrel held in setting of possible GIB ? Simvastatin 20 mg daily ? Follow-up outpatient for further management #Hypertension ? Lisinopril 5 mg daily ? Metoprolol 25 mg twice dily #Smoking history [id number] history, currently smokes ? Duonebs prn for wheezing/SOB #Cholelithiasis as seen on CT ? Follow-up outpatient for further management Hospital management: Disposition: DKA now resolved, pancreatic malignancy work-up, pending colonoscopy Fluids: LR at 75 cc/hr Diet: clear liquid for pending colonoscopy Lines: PIV DVT prophylaxis: SCDs CODE STATUS: full code ----- Plan discussed with attending physician Dr. Sutton and senior resident physician Dr. Irina Gilbert MD PGY-1 Internal Medicine
[2025-04-24] MEDS: cefTRIAXone/D5w 1gm IV premix 1 GM/50 ML BAG IV (09:34)
[2025-04-24] MEDS: PANTOPRAZOLE INJ 40 MG VIAL IVP ×2 (09:34→20:37)
--- NOTE | 2025-04-24 11:28 | PC.SS ---
SS follow up note; Pending colonoscopy today, will return home upon DC.
[2025-04-24] MEDS: HEPARIN SOD INJ 5000 UNIT/ML VIAL SC ×2 (14:59→21:04)
--- NOTE | 2025-04-24 19:33 | SUR.PHASEI ---
1933: Pt. AAOx4, vitals stable, breathing unlabored, no complaint of pain or nasuea, no dressing in place, no active bleed noted, report received from Mary Grace FONSECA.
--- NOTE | 2025-04-24 20:01 | SUR.PHASEI ---
2001: Pt. AAOx4, vitals stable, breathing unlabored, no complaint of pain or nausea, no dressing in place, no active bleed noted, report given to Chip FONSECA to resume care of pt.
[2025-04-24] MEDS: NAPH,KPH MBDB 1 PACKET (1.5 GM) PO (20:38)
[2025-04-24] MEDS: ATORVASTATIN CALCIUM 10 MG TABLET PO (20:38)
[2025-04-24] MEDS: HYDROcodone/APAP 5/325 TABLET 1 TAB PO (23:01)
[2025-04-25] VITALS: BP 103/74; PULSE 80; PULSE 90; RESP 16; TEMP 36.5; O2SAT 94
[2025-04-25 00:47] VITALS: BP 103/78; PULSE 90
[2025-04-25 04:00] VITALS: BP 126/79; PULSE 75; RESP 18; TEMP 36.4; O2SAT 98
[2025-04-25] MEDS: HEPARIN SOD INJ 5000 UNIT/ML VIAL SC (05:38)
[2025-04-25 07:30] VITALS: PULSE 90; RESP 18; O2SAT 99
[2025-04-25] MEDS: INSULIN LISPRO (AdmeLOG) 1 UNIT/0.01 ML UNIT SC ×2 (07:48→12:38)
[2025-04-25 08:00] VITALS: BP 135/86; PULSE 95; RESP 20; TEMP 36.1; O2SAT 95
[2025-04-25 08:24] LABS: Basophils # (Auto) 0.1 Thou/mm3 (0.0-0.2); Basophils % (Auto) 1 % (0-2.5); Eosinophils # (Auto) 0.1 Thou/mm3 (0.0-0.5); Eosinophils % (Auto) 2 % (0-10); Hematocrit 36.7 % (41.0-53.0); Hemoglobin 13.2 g/dL (13.5-16.0); Immature Granulocytes % (Auto) 0 % (0-0); Immature Granulocytes Auto 0.02 Thou/mm3 (0.00-0.00); Lymphocytes # (Auto) 1.4 Thou/mm3 (1.0-4.8); Lymphocytes % (Auto) 27 % (10-50); Mean Corpuscular Hemoglobin 28.1 pg (25.0-35.0); Mean Corpuscular Volume 78 fL (80-100); Monocytes # (Auto) 0.6 Thou/mm3 (0.0-0.8); Monocytes % (Auto) 12 % (0-12); Neutrophils % (Auto) 57 % (37-80); Nucleated Red Blood Cell % 0 /100 WBC (0); Platelet Count 179 Thou/mm3 (140-440); RDW Standard Deviation 37.9 fL (35.1-43.9); Red Blood Count 4.69 Miln/mm3 (4.50-5.90); White Blood Count 5.1 Thou/mm3 (3.8-10.6)
[2025-04-25] MEDS: INSULIN GLARGINE (Lantus) 5 UNIT/0.05 ML (PER 5 UNITS) 25 UNIT SC (08:37)
[2025-04-25] MEDS: HYDROcodone/APAP 5/325 TABLET 1 TAB PO (08:37)
[2025-04-25] MEDS: PANTOPRAZOLE INJ 40 MG VIAL IVP (08:37)
[2025-04-25] MEDS: cefTRIAXone/D5w 1gm IV premix 1 GM/50 ML BAG IV (08:37)
[2025-04-25 08:38] VITALS: BP 135/86; PULSE 95
[2025-04-25] MEDS: SENNA TABLET 1 TAB PO (08:38)
[2025-04-25] MEDS: Lisinopril 2.5 MG TABLET 5 MG PO (08:38)
[2025-04-25] MEDS: NAPH,KPH MBDB 1 PACKET (1.5 GM) PO (08:38)
[2025-04-25 08:58] LABS: Alanine Aminotransferase 10 U/L (10-49); Albumin, Serum 3.7 gm/dL (3.4-4.8); Albumin/Globulin Ratio 1.5 (1.2-2.2); Alkaline Phosphatase 91 U/L (46-116); Anion Gap 12 (7-16); Aspartate Amino Transferase 14 U/L (0-34); BUN/Creatinine Ratio 6 Ratio (12-20); Bilirubin,Total 0.3 mg/dL (0.3-1.2); Blood Urea Nitrogen < 5 mg/dL (9-23); Calcium 8.8 mg/dL (8.3-10.6); Carbon Dioxide 28.8 mMol/L (20.0-31.0); Chloride 99 mMol/L (98-107); Creatinine (Component) 0.9 mg/dL (0.6-1.3); Estimated Creatinine Clearance 60.6 mL/min (>60); Globulin 2.4 gm/dL (2.3-3.5); Glucose 218 mg/dL (74-106); Magnesium 1.4 mg/dL (1.6-2.6); Osmolality,Calculated 283 (275-295); Phosphorous 2.8 mg/dL (2.4-5.1); Potassium 2.9 mMol/L (3.4-5.1); Sodium 140 mMol/L (136-145); Total Protein 6.1 gm/dL (5.7-8.2); eGFR > 60 See Note
[2025-04-25] MEDS: POTASSIUM CHLORIDE 10% 20 MEQ/15 ML UDC PO (10:03)
[2025-04-25] MEDS: POTASSIUM CHLORIDE 10% 20 MEQ/15 ML UDC 40 MEQ PO (10:03)
[2025-04-25 10:05] VITALS: BMI 19.7
--- NOTE | 2025-04-25 10:35 | ESDS_ITS ---
<Statement entered by Gian Sutton MD - 04/30/25 14:40> I reviewed above note and agree with findings and plans. I have also personally examined the patient with medicine team and went over assessment and plan with medical team including hr internship and resident physician. Planned Discharge Date 04/25/25 DS: Providers Provider Date of admission: 04/21/25 11:08 Primary care physician: SINTIA Mancia Admitting Provider: Yu Royal MD Attending Provider on Admission: Gian Sutton MD Consults: 04/21/25 11:13 Referral Registered Dietitian Routine Comment: 04/21/25 13:06 Referral Registered Dietitian Routine Comment: 04/22/25 07:55 Consult to Gastroenterology Routine Comment: 30 lbs weight loss in 1 month, FOBT + Consulting Provider: Artis Butterfield Attending Provider on DC: Bart Gilbert MD Discharging Provider: Bart Gilbert MD DS: Diagnosis Problem List Completed Was Problem List Reviewed/Reconciled?: Yes Hospital Course Hospital Course Hospital course: Francisco J Dixon is a 70-year-old male with a past medical history of CAD status post stents in 2019 at [place], hypertension, hyperlipidemia, history of r ecurrent pancreatitis who presented on 04/21 with chief complaint of abdominal pain, weakness, and dark stools. States that for the last month or so, he has experienced symptoms as previously noted that have progressively worsened to the point where it was difficult for him to tolerate liquids and describes his abdominal pain as epigastric and constant. Of note, he was taking [id number] NSAIDs for unknown duration of time for his abdominal pain and noticed dark stools but also was taking Plavix for history of CAD. He is also noted to have a 20 to 30 pound weight loss within the last month or so that he attributes to abdominal pain. On admission, vital signs showed HR 113 and otherwise vital signs stable. ABG showed pH 7.3, pCO2 19, PO2 96. CHEM panel showed sodium of 127, K 5, bicarb 14.8, creatinine 1.7, glucose 552, lactate 1.6, AG 20, beta hydroxybutyrate 5.8, lipase 279. He was admitted to the ICU for management of his DKA but eventually downgraded to the floors on 04/23 with 25 units glargine. Additionally, given his history of melena he underwent EGD did not show obvious source of bleeding and underwent colonoscopy that showed an internal hemorrhoid that was banded, a large polyp that was removed, and diverticulosis without signs of bleeding. Throughout rest of hospital course, vital signs remained stable. CBC unremarkable. CHEM panel showed hypokalemia that was repleted and blood sugars overcontrolled on 25 units glargine. Given clinical stability, patient was stable for discharge with 25 units glargine for his diabetes as well as metformin 500 mg twice daily. Recommended close follow-up with his PCP for further evaluation of his recurrent pancreatitis that may have led to pancreatic insufficiency and is new onset diabetes. Additionally, his clopidogrel was held due to melena and will have to follow-up with his PCP regarding whether to continue or not. Diagnoses during admission: #New onset diabetes (A1c 11.9%) #New onset DKA, resolved #Melena #? UGIB #? Gastric ulcers #Acute kidney injury, resolved #Hypophosphatemia #Hypomagnesemia #Hypokalemia #Recurrent pancreatitis #? Pancreatic insufficiency #History of CAD s/p stents #Heavy coronary artery calcification as seen on CT #Hyperlipidemia #Hypertension #Smoking history #Cholelithiasis as seen on CT Discharge instructions: ? Start taking insulin glargine 25 units at night for your diabetes ? Start taking metformin 500 mg twice per day for your daibetes ? Hold taking your clopidogrel until you follow-up with your PCP ? Continue taking all other home medications as prescribed ? Follow-up with PCP within 1-2 weeks of discharge ? Follow-up with sail finisher hand for colonoscopy results and for further work-up of pancreatitis, including obtaining an MRI ? If you do not have a PCP, you can follow-up at the [facility] (you can call [phone] to make an appointment) ? If you wish to follow-up with Dr. Gilbert, schedule appointment on Wednesday afternoons ? Return to ED if symptoms worsen or recur ----- Plan discussed with attending physician Dr. Lesley Gilbert MD PGY-1 Internal Medicine Time Spent with Patient Time attestation: Total time spent providing and/or coordinating discharge services: Time spent: Less than 30 minutes Exam Vital Signs Temp Pulse Resp BP Pulse Ox O2 Del Method O2 Flow Rate 97.0 F 95 20 135/86 H 95 Room Air 3 04/25/25 08:00 04/25/25 08:38 04/25/25 08:00 04/25/25 08:38 04/25/25 08:00 04/25/25 08:00 04/24/25 19:29 Narrative Exam General: underweight, AOx3, no acute distress, able to speak full sentences HEENT: NC/AT, mucous membranes moist, bilateral sclera anicteric Cardiovascular: regular rate and rhythm, S1/S2 present, no murmurs appreciated Pulmonary: clear to auscultation bilaterally, no rales/rhonchi/wheezes Abdominal: tender in LUQ and epigastrium, soft, non-distended, no rebound/guarding, normal bowel sounds present Musculoskeletal: normal ROM, no peripheral edema Skin: warm and dry, intact, no rashes Neuro: CN II-XII intact, no focal deficits Discharge Plan Plan Patient Disposition: HOME (Self Care) Care Plan Goals: ? Start taking insulin glargine 25 units at night for your diabetes ? Start taking metformin 500 mg twice per day for your daibetes ? Hold taking your clopidogrel until you follow-up with your PCP ? Continue taking all other home medications as prescribed ? Follow-up with PCP within 1-2 weeks of discharge ? Follow-up with sail finisher hand for colonoscopy results and for further work-up of pancreatitis, including obtaining an MRI ? If you do not have a PCP, you can follow-up at the [facility] (you can call [phone] to make an appointment) ? If you wish to follow-up with Dr. Gilbert, schedule appointment on Wednesday afternoons ? Return to ED if symptoms worsen or recur Prescriptions/Referrals Prescriptions/Med Rec: New insulin glargine 100 unit/mL (3 mL) insulin pen 25 unit subcut QPM Qty: 15 0RF (DME) pen needle, diabetic [Pen Needle] 29 gauge x 1/2 needle See Rx Instructions .Route Qty: 100 0RF Rx Instructions: Use for when checking blood sugars (DME) [employer] Plus Sensor Device See Rx Instructions .Route Qty: 1 0RF Rx Instructions: As directed (DME) [employer] [place] Misc See Rx Instructions .Route Qty: 1 0RF Rx Instructions: As directed metformin 500 mg tablet 500 mg PO BID Qty: 60 0RF (DME) lancet-gluc nlqzd-hmdjnt-xwfck Kit See Rx Instructions .Route Qty: 1 0RF Rx Instructions: Use to check blood sugars Continued simvastatin 20 mg tablet 20 mg PO QDAY albuterol sulfate 90 mcg/actuation HFA aerosol inhaler 2 puff INHALATION Q4H PRN (Reason: sob) hydrocodone-acetaminophen 5-325 mg tablet 1 tab PO Q6H MDD 6 PRN (Reason: pain) Qty: 14 0RF lansoprazole 30 mg capsule,delayed release(DR/EC) 30 mg PO QDAY Qty: 30 0RF metoprolol tartrate 25 mg tablet 25 mg PO Q12H lisinopril 5 mg tablet 5 mg PO QDAY 30 Days Qty: 30 0RF Held clopidogrel 75 mg tablet 75 mg PO QDAY Hold Instructions: Resume after appointment with PCP Referrals: Haylee Pettit FNP [Primary Care Provider] - Patient/Caregiver Discharge Instructions Print Language: Arabic Stand Alone Forms: Jane Award Info., Patient Portal Info Letter Discharge Order Discharge Orders: Discharge (Routine); Ordered 04/25/25 Ordered By: Bart Wiseman [facility] Quality Discharge Quality Measures none (Contraindicated for possible GIB)
--- NOTE | 2025-04-25 10:36 | PC.SS ---
SS update: plan is for patient to d/c home today.
--- NOTE | 2025-04-25 11:22 | PC.NURSE ---
engine monitor removed at this time, return to community service officer coordinator Kavita.
--- NOTE | 2025-04-25 12:05 | PC.CC ---
Submitted signed order for [employer] Plus Sensor and [employer] [place] to [email or web address] via [employer] platform.
[2025-04-30 07:11] LABS: CA 19-9 Antigen* 1282 U/mL (<34)
== END 2025-04-25 12:55 | disposition home or self-care (01) | DRG 987 ==
LOC: SERX 07:49 → SERHOLD 11:52 → S2SX 12:42 → S3NX 04-23 09:39 → S2SX 04-25 07:30 → S3NX 04-25 07:30
PROVIDERS: Nurse Practitioner Primary Care; Specialist; Student in an Organized Health Care Education/Training Program; Admitting Provider Internal Medicine; Emergency Provider Student in an Organized Health Care Education/Training Program; PCP Nurse Practitioner; Visit Provider Internal Medicine
PROC: 06LY8CC Occlusion of Hemorrhoidal Plexus with Extraluminal Device, Via Natural or Artificial Opening Endoscopic (ICD-10-PCS; CPT 43239; principal; 2025-04-23 12:00)
PROC: 0DJD8ZZ Inspection of Lower Intestinal Tract, Via Natural or Artificial Opening Endoscopic (ICD-10-PCS; CPT 45378; principal; 2025-04-24 20:00)
DX: E11.10 Type 2 diabetes mellitus with ketoacidosis without coma (principal); K29.71 Gastritis, unspecified, with bleeding; K57.31 Diverticulosis of large intestine without perforation or abscess with bleeding; K85.90 Acute pancreatitis without necrosis or infection, unspecified; K86.0 Alcohol-induced chronic pancreatitis; N17.9 Acute kidney failure, unspecified; Z68.1 Body mass index [BMI] 19.9 or less, adult; Z95.5 Presence of coronary angioplasty implant and graft; I25.10 Atherosclerotic heart disease of native coronary artery without angina pectoris; E78.5 Hyperlipidemia, unspecified; I10 Essential (primary) hypertension; K59.09 Other constipation; R63.0 Anorexia; F10.20 Alcohol dependence, uncomplicated; E86.0 Dehydration; T39.395A Adverse effect of other nonsteroidal anti-inflammatory drugs [NSAID], initial encounter; F17.210 Nicotine dependence, cigarettes, uncomplicated; K64.2 Third degree hemorrhoids; K80.20 Calculus of gallbladder without cholecystitis without obstruction; E83.39 Other disorders of phosphorus metabolism; K57.30 Diverticulosis of large intestine without perforation or abscess without bleeding; E83.42 Hypomagnesemia; E87.6 Hypokalemia; J44.9 Chronic obstructive pulmonary disease, unspecified; K70.30 Alcoholic cirrhosis of liver without ascites; Z79.02 Long term (current) use of antithrombotics/antiplatelets; Z79.4 Long term (current) use of insulin; Z79.84 Long term (current) use of oral hypoglycemic drugs; D12.0 Benign neoplasm of cecum; Z79.899 Other long term (current) drug therapy; Z87.891 Personal history of nicotine dependence
CPT/HCPCS: 36415; 36600; 71045; 71260; 74177; 80053; 80061; 80069; 80307; 80320; 81001; 82010; 82043; 82378; 82436; 82570; 82803; 83036; 83605; 83690; 83735; 84100; 84133; 84300; 85014; 85018; 85025; 85610; 85652; 85730; 86140; 86301; 86850; 86900; 86901; 87040; 87081; 93005; 94640; 96361; 96374; 96376; 99285; A4649; A9270; J0696; J1171; J1200; J1644; J1815; J2250; J2270; J2470; J3010; J3475; J3480; J7030; J7120; J7121; Q9967; G0480